=== PATIENT | male | born 1955 | race Caucasian/White ===

== ENCOUNTER 2018-01-21 11:59 | Observation (INO) | payer MEDICARE, OTHER ==
--- NOTE | 2018-01-21 12:42 | ED ---
General Adult HPI - General Chief complaint: Chest Pain Stated complaint: Chest Pain Time Seen by Provider: 01/21/18 12:02 Source: patient, RN notes reviewed, old records reviewed Mode of arrival: EMS Limitations: no limitations - History of Present Illness Initial comments: 62-year-old male with multiple medical problems presenting for chief complaint of chest pain. Patient states pain began yesterday evening. His been constant since that time. He does have history of coronary artery disease and has had stents in the past. Patient denies any radiating symptoms. Denies nausea or vomiting. He also complains of diffuse pain which is chronic. He smokes marijuana for his chronic pain. He is not on any oral pain medication at this time. No diaphoresis. Pain is been unchanged since its onset, dull central chest pain. - Related Data Home Medications Medication Instructions Recorded Confirmed Nitroglycerin Sl Tabs [Nitrostat] 0.4 mg SUBLINGUAL Q5M PRN 10/16/14 01/21/18 Lasix(Unknown Dose) 1 tab PO DAILY 01/21/18 01/21/18 Lisinopril [Zestril] 5 mg PO DAILY 01/21/18 01/21/18 Lovastatin [Mevacor] 40 mg PO BID 01/21/18 01/21/18 Metoprolol(Unknown Dose) 1 tab PO DAILY 01/21/18 01/21/18 Allergies Allergy/AdvReac Type Severity Reaction Status Date / Time haloperidol [From Haldol] Allergy Confusion Verified 01/21/18 13:09 ketorolac [From Toradol] Allergy Diarrhea Verified 01/21/18 13:09 naproxen [From Naprosyn] Allergy Anaphylaxis Verified 01/21/18 13:09 olanzapine [From Zyprexa] Allergy Confusion Verified 01/21/18 13:09 Review of Systems ROS Statement: Those systems with pertinent positive or pertinent negative responses have been documented in the HPI. ROS Other: All systems not noted in ROS Statement are negative. Past Medical History Past Medical History: Coronary Artery Disease (CAD), Chest Pain / Angina, COPD, GERD/Reflux, GI Bleed, Hyperlipidemia, Hypertension, Myocardial Infarction ([place]) , Osteoarthritis (OA), Pneumonia Additional Past Medical History / Comment(s): 11/17/14 Pt presented to [facility] ER on 11/16/14 with chest pain-rib tightness and nausea over 3 days. Pt had cardiac cath 3 weeks ago at [facility] but does not remember if they performed PTCA or stenting. Pt also fell and hit his head yesterday. Other HX:TBI, SUBARACHNOID HEMORRHAGE-eyes are light sensitive, [place]'s x 5, BACK hepPAIN, SPINAL STENOSIS, EMPHYSEMA, ddd, ulcers, lumbar radiculopathy, ARRYTHMIA-unsure what type, melena 01/2014 due to stomach ulcer, R hand fx. hep c Last Myocardial Infarction Date:: 2011? History of Any Multi-Drug Resistant Organisms: None Reported Past Surgical History: Back Surgery, Cholecystectomy, Heart Catheterization With Stent Additional Past Surgical History / Comment(s): EGD and colonoscopy, LAMINECTOMY , rt foot sx, Past Anesthesia/Blood Transfusion Reactions: No Reported Reaction Additional Past Anesthesia/Blood Transfusion Reaction / Comment(s): 11/17/14 Pt denies blood transfusion. Date of Last Stent Placement:: 2011? Past Psychological History: Anxiety, Depression Smoking Status: Current every day smoker Past Alcohol Use History: None Reported Past Drug Use History: Marijuana - Past Family History Mother Family Medical History: Hypertension Father Family Medical History: Coronary Artery Disease (CAD) General Exam Limitations: no limitations General appearance: alert, in no apparent distress Head exam: Present: atraumatic, normocephalic Eye exam: Present: normal appearance, PERRL ENT exam: Present: normal exam Neck exam: Present: normal inspection. Absent: meningismus Respiratory exam: Present: normal lung sounds bilaterally. Absent: respiratory distress, wheezes Cardiovascular Exam: Present: regular rate, normal rhythm GI/Abdominal exam: Present: soft. Absent: distended, tenderness, guarding Extremities exam: Present: normal inspection, normal capillary refill. Absent: pedal edema Neurological exam: Present: alert, oriented X3, CN II-XII intact. Absent: motor sensory deficit Psychiatric exam: Present: normal affect, normal mood Skin exam: Present: warm, dry, intact. Absent: cyanosis, diaphoretic Course Vital Signs 01/21/18 01/21/18 12:10 12:38 Temperature 97.8 F Pulse Rate 73 79 Respiratory 18 18 Rate Blood Pressure 109/66 118/67 O2 Sat by Pulse 98 96 Oximetry EKG Findings - EKG Comments: EKG Findings:: EKG: Normal sinus rhythm, left axis deviation, inferior infarct age undetermined, rate of 71, [place] interval 158, QRS duration 106, QTC [address] segment elevation or depression Medical Decision Making - Medical Decision Making 62-year-old male presenting with chest pain, patient does have history of CAD and previous stents. EKG is negative for any acute ST segment changes. Patient 's blood work reveals normal hemoglobin, normal white blood cell count, troponin is negative. Patient will be placed in observation for serial cardiac enzymes and cardiology consultation. Case discussed with Dr. Rojas who will accept admission - Lab Data Result diagrams: 01/21/18 12:30 01/21/18 12:30 Lab Results 01/21/18 01/21/18 01/21/18 Range/Units 12:30 12:30 12:30 WBC 4.6 (3.8-10.6) k/uL RBC 4.67 (4.30-5.90) m/uL Hgb 14.8 (13.0-17.5) gm/dL Hct 43.1 (39.0-53.0) % MCV 92.1 (80.0-100.0) fL MCH 31.7 (25.0-35.0) pg MCHC 34.4 (31.0-37.0) g/dL RDW 13.7 (11.5-15.5) % Plt Count 108 L (150-450) k/uL Neutrophils % 59 % Lymphocytes % 28 % Monocytes % 8 % Eosinophils % 4 % Basophils % 1 % Neutrophils # 2.7 (1.3-7.7) k/uL Lymphocytes # 1.3 (1.0-4.8) k/uL Monocytes # 0.4 (0-1.0) k/uL Eosinophils # 0.2 (0-0.7) k/uL Basophils # 0.0 (0-0.2) k/uL PT (9.0-12.0) sec INR (<1.2) APTT (22.0-30.0) sec Sodium 140 (137-145) mmol/L Potassium 3.4 L (3.5-5.1) mmol/L Chloride 109 H (98-107) mmol/L Carbon Dioxide 18 L (22-30) mmol/L Anion Gap 13 mmol/L BUN 13 (9-20) mg/dL Creatinine 0.90 (0.66-1.25) mg/dL Est GFR (CKD-EPI)AfAm >90 (>60 ml/min/1.73 sqM) Est GFR (CKD-EPI)NonAf >90 (>60 ml/min/1.73 sqM) Glucose 104 H (74-99) mg/dL Calcium 8.7 (8.4-10.2) mg/dL Magnesium 1.6 (1.6-2.3) mg/dL Total Bilirubin 0.7 (0.2-1.3) mg/dL AST 51 (17-59) U/L ALT 63 (21-72) U/L Alkaline Phosphatase 65 (38-126) U/L Total Creatine Kinase 96 (55-170) U/L CK-MB (CK-2) 1.1 (0.0-2.4) ng/mL CK-MB (CK-2) Rel Index 1.1 Troponin I <0.012 (0.000-0.034) ng/mL NT-Pro-B Natriuret Pep pg/mL Total Protein 6.5 (6.3-8.2) g/dL Albumin 3.7 (3.5-5.0) g/dL 01/21/18 01/21/18 Range/Units 12:30 12:30 WBC (3.8-10.6) k/uL RBC (4.30-5.90) m/uL Hgb (13.0-17.5) gm/dL Hct (39.0-53.0) % MCV (80.0-100.0) fL MCH (25.0-35.0) pg MCHC (31.0-37.0) g/dL RDW (11.5-15.5) % Plt Count (150-450) k/uL Neutrophils % % Lymphocytes % % Monocytes % % Eosinophils % % Basophils % % Neutrophils # (1.3-7.7) k/uL Lymphocytes # (1.0-4.8) k/uL Monocytes # (0-1.0) k/uL Eosinophils # (0-0.7) k/uL Basophils # (0-0.2) k/uL PT 12.4 H (9.0-12.0) sec INR 1.3 H (<1.2) APTT 25.2 (22.0-30.0) sec Sodium (137-145) mmol/L Potassium (3.5-5.1) mmol/L Chloride (98-107) mmol/L Carbon Dioxide (22-30) mmol/L Anion Gap mmol/L BUN (9-20) mg/dL Creatinine (0.66-1.25) mg/dL Est GFR (CKD-EPI)AfAm (>60 ml/min/1.73 sqM) Est GFR (CKD-EPI)NonAf (>60 ml/min/1.73 sqM) Glucose (74-99) mg/dL Calcium (8.4-10.2) mg/dL Magnesium (1.6-2.3) mg/dL Total Bilirubin (0.2-1.3) mg/dL AST (17-59) U/L ALT (21-72) U/L Alkaline Phosphatase (38-126) U/L Total Creatine Kinase (55-170) U/L CK-MB (CK-2) (0.0-2.4) ng/mL CK-MB (CK-2) Rel Index Troponin I (0.000-0.034) ng/mL NT-Pro-B Natriuret Pep 149 pg/mL Total Protein (6.3-8.2) g/dL Albumin (3.5-5.0) g/dL Disposition Clinical Impression: Chest pain Disposition: ADMITTED IP TO THIS HOSP Condition: Stable Is patient prescribed a controlled substance at d/c from ED?: No Referrals: Nemesio Hale DO [Primary Care Provider] - 1-2 days Decision to Admit Reason: Admit from EC Decision Date: 01/21/18 Decision Time: 14:19
[2018-01-21 12:47] LABS: Basophils % (A) 1 %; Eosinophils # (A) 0.2 k/uL (0-0.7); Eosinophils % (A) 4 %; HCT 43.1 % (39.0-53.0); HGB 14.8 gm/dL (13.0-17.5); Lymphocytes # (A) 1.3 k/uL (1.0-4.8); Lymphocytes % (A) 28 %; MCH 31.7 pg (25.0-35.0); MCHC 34.4 g/dL (31.0-37.0); MCV 92.1 fL (80.0-100.0); Mean Platelet Volume 7.3; Monocytes # (A) 0.4 k/uL (0-1.0); Monocytes % (A) 8 %; Neutrophils # (A) 2.7 k/uL (1.3-7.7); Neutrophils % (A) 59 %; Platelet Count 108 k/uL (150-450); RBC 4.67 m/uL (4.30-5.90); RDW 13.7 % (11.5-15.5); WBC 4.6 k/uL (3.8-10.6)
[2018-01-21 13:00] LABS: ALT 63 U/L (21-72); AST 51 U/L (17-59); Albumin 3.7 g/dL (3.5-5.0); Alkaline Phosphatase 65 U/L (38-126); Anion Gap 13 mmol/L; Blood Urea Nitrogen 13 mg/dL (9-20); Calcium 8.7 mg/dL (8.4-10.2); Carbon Dioxide 18 mmol/L (22-30); Chloride 109 mmol/L (98-107); Glucose 104 mg/dL (74-99); Magnesium 1.6 mg/dL (1.6-2.3); Potassium 3.4 mmol/L (3.5-5.1); Sodium 140 mmol/L (137-145); Total Bilirubin 0.7 mg/dL (0.2-1.3); Total Protein 6.5 g/dL (6.3-8.2)
[2018-01-21 13:01] LABS: INR 1.3 (<1.2); Partial Thromboplastin Time 25.2 sec (22.0-30.0); Prothrombin Time 12.4 sec (9.0-12.0)
--- NOTE | 2018-01-21 13:09 | XR ---
EXAMINATION TYPE: XR chest 2V DATE OF EXAM: 01/21/2018 COMPARISON: 11/16/2014 TECHNIQUE: PA and lateral views submitted. HISTORY: Chest pain FINDINGS: The lungs are clear and there is no pneumothorax, pleural effusion, or focal pneumonia. Hypertrophi c and degenerative change of the spine. Arthropathy of the shoulders. Hyperinflation suggests COPD. T here is a slight deformity of the posterior margin of the left second rib. IMPRESSION: 1. No acute process. Correlate for COPD. 2. Deformity of the left second rib. If there is a history of trauma consider rib series 4 evaluation of rib fracture.
[2018-01-21 13:11] LABS: Creatine Kinase 96 U/L (55-170)
[2018-01-21 13:24] LABS: Creatine Kinase MB 1.1 ng/mL (0.0-2.4); Troponin I <0.012 ng/mL (0.000-0.034)
[2018-01-21] MEDS ORDERED: MORPHINE SULFATE 2 MG/ML SYRINGE IVP STA (13:58)
[2018-01-21] MEDS ORDERED: ASPIRIN 325 MG TAB PO STA (13:58)
[2018-01-21] MEDS ORDERED: NALOXONE 0.4 MG/ML 1 ML VIAL IV PRN ×2 (14:10→14:11)
[2018-01-21] MEDS ORDERED: ONDANSETRON 4 MG/2 ML VIAL IVP PRN (14:11)
[2018-01-21] MEDS ORDERED: ACETAMINOPHEN TAB 325 MG TAB PO PRN (14:11)
[2018-01-21] MEDS ORDERED: HYDROcodone/APAP 5-325MG 1 EACH TAB PO PRN (14:42)
--- NOTE | 2018-01-21 14:44 | P.HPIM ---
History of Present Illness This is a pleasant 62 years old male with past medical history of hypertension, coronary artery disease, subarachnoid hemorrhage in 2013 as per patient, hepatitis C, cirrhosis, current smoker, COPD/emphysema and itching who presents because of chest pain of one-day duration, on the left side, radiating to the left lower chest, pressure-like, 7/10 in severity, associated with dyspnea, palpitation and some dizziness. No syncope area patient complains from exertional dyspnea he states he can walk for 75-80 feet before he needs to stop for rest. No change in urine or bowel habits, no fever In the ED his WBC is 4.6K, hemoglobin is 14.8, platelet is 108. INR is 1.3. Sodium 140, potassium 3.4, creatinine 0.9. Liver function test is unremarkable. First troponin is negative Chest x-ray shows no different acute process, COPD. Deformity of the second rib. EKG showing normal sinus rhythm at 71, old infarct. No significant ST-T changes Review of Systems CONSTITUTIONAL: No fever, no malaise, no fatigue. HEENT: No recent visual problems or hearing problems. Denied any sore throat. CARDIOVASCULAR: No orthopnea, PND, no palpitations, no syncope. PULMONARY: No shortness of breath, no cough, no hemoptysis. GASTROINTESTINAL: No diarrhea, no nausea, no vomiting, no abdominal pain. Normoactive bowel sounds. NEUROLOGICAL: No headaches, no weakness, no numbness. HEMATOLOGICAL: Denies any bleeding or petechiae. GENITOURINARY: Denies any burning micturition, frequency, or urgency. MUSCULOSKELETAL/RHEUMATOLOGICAL: Denies any joint pain, swelling, or any muscle pain. ENDOCRINE: Denies any polyuria or polydipsia. Past Medical History Past Medical History: Coronary Artery Disease (CAD), Chest Pain / Angina, COPD, GERD/Reflux, GI Bleed, Hyperlipidemia, Hypertension, Myocardial Infarction ([place]) , Osteoarthritis (OA), Pneumonia Additional Past Medical History / Comment(s): 11/17/14 Pt presented to [facility] ER on 11/16/14 with chest pain-rib tightness and nausea over 3 days. Pt had cardiac cath 3 weeks ago at [facility] but does not remember if they performed PTCA or stenting. Pt also fell and hit his head yesterday. Other HX:TBI, SUBARACHNOID HEMORRHAGE-eyes are light sensitive, [place]'s x 5, BACK hepPAIN, SPINAL STENOSIS, EMPHYSEMA, ddd, ulcers, lumbar radiculopathy, ARRYTHMIA-unsure what type, melena 01/2014 due to stomach ulcer, R hand fx. hep c Last Myocardial Infarction Date:: 2011? History of Any Multi-Drug Resistant Organisms: None Reported Past Surgical History: Back Surgery, Cholecystectomy, Heart Catheterization With Stent Additional Past Surgical History / Comment(s): EGD and colonoscopy, LAMINECTOMY , rt foot sx, Past Anesthesia/Blood Transfusion Reactions: No Reported Reaction Additional Past Anesthesia/Blood Transfusion Reaction / Comment(s): 11/17/14 Pt denies blood transfusion. Date of Last Stent Placement:: 2011? Past Psychological History: Anxiety, Depression Smoking Status: Current every day smoker Past Alcohol Use History: None Reported Past Drug Use History: Marijuana - Past Family History Mother Family Medical History: Hypertension Father Family Medical History: Coronary Artery Disease (CAD) Medications and Allergies Home Medications Medication Instructions Recorded Confirmed Type Nitroglycerin Sl Tabs [Nitrostat] 0.4 mg SUBLINGUAL Q5M PRN 10/16/14 01/21/18 History Lasix(Unknown Dose) 1 tab PO DAILY 01/21/18 01/21/18 History Lisinopril [Zestril] 5 mg PO DAILY 01/21/18 01/21/18 History Lovastatin [Mevacor] 40 mg PO BID 01/21/18 01/21/18 History Metoprolol(Unknown Dose) 1 tab PO DAILY 01/21/18 01/21/18 History Allergies Allergy/AdvReac Type Severity Reaction Status Date / Time haloperidol [From Haldol] Allergy Confusion Verified 01/21/18 13:09 ketorolac [From Toradol] Allergy Diarrhea Verified 01/21/18 13:09 naproxen [From Naprosyn] Allergy Anaphylaxis Verified 01/21/18 13:09 olanzapine [From Zyprexa] Allergy Confusion Verified 01/21/18 13:09 Physical Exam Vitals: Vital Signs Temp Pulse Resp BP Pulse Ox 01/21/18 12:38 79 18 118/67 96 01/21/18 12:10 97.8 F 73 18 109/66 98 Intake and Output 01/20/18 01/21/18 01/21/18 22:59 06:59 14:59 Other: Weight 63.503 kg GENERAL: The patient is alert and oriented x3, not in any acute distress. Well developed, well nourished. HEENT: Pupils are round and equally reacting to light. EOMI. No scleral icterus. No conjunctival pallor. Normocephalic, atraumatic. No pharyngeal erythema. No thyromegaly. CARDIOVASCULAR: S1 and S2 present. No murmurs, rubs, or gallops. PULMONARY: Chest is clear to auscultation, no wheezing or crackles. ABDOMEN: Soft, nontender, nondistended, normoactive bowel sounds. No palpable organomegaly. MUSCULOSKELETAL: No joint swelling or deformity. EXTREMITIES: No cyanosis, clubbing, or pedal edema. NEUROLOGICAL: Gross neurological examination did not reveal any focal deficits. SKIN: No rashes. Results CBC & Chem 7: 01/21/18 12:30 01/21/18 12:30 Labs: Abnormal Lab Results - Last 24 Hours (Table) 01/21/18 01/21/18 01/21/18 Range/Units 12:30 12:30 12:30 Plt Count 108 L (150-450) k/uL PT 12.4 H (9.0-12.0) sec INR 1.3 H (<1.2) Potassium 3.4 L (3.5-5.1) mmol/L Chloride 109 H (98-107) mmol/L Carbon Dioxide 18 L (22-30) mmol/L Glucose 104 H (74-99) mg/dL Assessment and Plan Plan: -Chest pain syndrome we'll admit with serial troponin, echo, telemetry, call cardiology consult -Current smoker. Patient is counseled for risks including but not limited to cancer, heart and brain strokes, and/or , patient verbalized understanding and he said he doesn't want to quit, he doesn't want nicotine patch minus overt. Patient states he will try to quit on his own if he likes to -Hypertension continue with the same treatment -Hyperlipidemia continue with the same treatment DVT prophylaxis on subcutaneous heparin GI prophylaxis on Pepcid
[2018-01-21] MEDS: MORPHINE SULFATE 2 MG/ML SYRINGE IV PRN (17:17)
[2018-01-21] MEDS ORDERED: Magnesium Replacement Protocol 1 EACH MISC MISCELLANE PRN (18:24)
[2018-01-21] MEDS ORDERED: Potassium Replacement Protocol 1 EACH MISC MISCELLANE PRN (18:24)
[2018-01-21 19:28] LABS: Creatine Kinase 123 U/L (55-170)
[2018-01-21 19:43] LABS: Creatine Kinase MB 1.5 ng/mL (0.0-2.4); Troponin I <0.012 ng/mL (0.000-0.034)
[2018-01-21 20:03] VITALS: RESP 16
[2018-01-21] MEDS ORDERED: ATORVASTATIN 20 MG TAB PO SCH (21:00)
[2018-01-21] MEDS ORDERED: FAMOTIDINE 20 MG/2 ML VIAL IV SCH (21:00)
[2018-01-21] MEDS ORDERED: HEPARIN SODIUM,PORCINE 5,000 UNIT/ML 1 ML VIAL SQ SCH (21:00)
[2018-01-21] MEDS: POTASSIUM CHLORIDE ER 20 MEQ TAB.ER PO SCH ×2 (22:09→23:26)
[2018-01-21] MEDS: MAGNESIUM SULFATE-D5W PMX 1 GM in DEXTROSE/WATER 1 100ML.BAG IVPB SCH ×2 (22:09→23:27)
[2018-01-22] MEDS: MORPHINE SULFATE 2 MG/ML SYRINGE IV PRN (00:43)
[2018-01-22 01:32] LABS: Creatine Kinase 118 U/L (55-170)
[2018-01-22 01:45] LABS: Creatine Kinase MB 1.7 ng/mL (0.0-2.4); Troponin I <0.012 ng/mL (0.000-0.034)
[2018-01-22 07:02] LABS: Basophils # (A) 0.1 k/uL (0-0.2); Basophils % (A) 1 %; Eosinophils # (A) 0.4 k/uL (0-0.7); Eosinophils % (A) 7 %; HCT 43.7 % (39.0-53.0); HGB 15.2 gm/dL (13.0-17.5); Lymphocytes # (A) 1.9 k/uL (1.0-4.8); Lymphocytes % (A) 37 %; MCH 32.5 pg (25.0-35.0); MCHC 34.8 g/dL (31.0-37.0); MCV 93.5 fL (80.0-100.0); Monocytes # (A) 0.4 k/uL (0-1.0); Monocytes % (A) 7 %; Neutrophils # (A) 2.5 k/uL (1.3-7.7); Neutrophils % (A) 47 %; Platelet Count 113 k/uL (150-450); RBC 4.67 m/uL (4.30-5.90); RDW 13.7 % (11.5-15.5); WBC 5.2 k/uL (3.8-10.6)
[2018-01-22 07:08] LABS: Calcium 8.7 mg/dL (8.4-10.2); Magnesium 2.1 mg/dL (1.6-2.3); Potassium 4.7 mmol/L (3.5-5.1)
[2018-01-22 07:51] VITALS: BP 87/55; PULSE 50; TEMP 97.6
--- NOTE | 2018-01-22 11:09 | P.PN ---
Subjective I came to see the patient, however the nurse at bedside told me patient has already signed leaving AMA and has already left Objective - Vital Signs Vital signs: Vital Signs Temp 97.6 F 01/22/18 07:50 Pulse 50 L 01/22/18 07:50 Resp 16 01/22/18 07:50 BP 87/55 01/22/18 07:50 Pulse Ox 98 01/22/18 07:50 Intake & Output 01/21/18 01/22/18 01/22/18 18:59 06:59 18:59 Intake Total 318 Balance 318 Weight 72.2 kg Intake: Oral 318 Other: Voiding Method Toilet Toilet Toilet # Voids 2 - Labs CBC & Chem 7: 01/22/18 06:34 01/22/18 06:34 Labs: Abnormal Lab Results - Last 24 Hours (Table) 01/21/18 01/21/18 01/21/18 Range/Units 12:30 12:30 12:30 Plt Count 108 L (150-450) k/uL PT 12.4 H (9.0-12.0) sec INR 1.3 H (<1.2) Potassium 3.4 L (3.5-5.1) mmol/L Chloride 109 H (98-107) mmol/L Carbon Dioxide 18 L (22-30) mmol/L Glucose 104 H (74-99) mg/dL 01/22/18 01/22/18 Range/Units 06:34 06:34 Plt Count 113 L (150-450) k/uL PT (9.0-12.0) sec INR (<1.2) Potassium (3.5-5.1) mmol/L Chloride 108 H (98-107) mmol/L Carbon Dioxide (22-30) mmol/L Glucose (74-99) mg/dL
--- NOTE | 2018-01-22 11:12 | P.DS ---
Providers Date of admission: 01/21/18 14:10 Attending physician: Tobi Rojas Consults: 01/21/18 14:10 Consult Physician Routine Consulting Provider: Dino Cheng Consult Reason/Comments: CP Do you want consulting provider notified?: Yes Primary care physician: Nemesio Hale [facility] Course: Patient is a pleasant 62 years old male with past medical history of hypertension, coronary artery disease, subarachnoid hemorrhage in 2013 as per patient, hepatitis C, cirrhosis, current smoker, COPD/emphysema and itching who presents because of chest pain of one-day duration, on the left side, radiating to the left lower chest, pressure-like, 7/10 in severity, associated with dyspnea, palpitation and some dizziness. No syncope area patient complains from exertional dyspnea he states he can walk for 75-80 feet before he needs to stop for rest. No change in urine or bowel habits, no fever In the ED his WBC is 4.6K, hemoglobin is 14.8, platelet is 108. INR is 1.3. Sodium 140, potassium 3.4, creatinine 0.9. Liver function test is unremarkable. First troponin is negative Patient was still in the middle of workup and evaluation including consult ends , however patient signed leaving AMA before the morning rounds Patient Condition at Discharge: Stable Plan - Discharge Summary Discharge Rx Participant: No New Discharge Prescriptions: No Action Nitroglycerin Sl Tabs [Nitrostat] 0.4 mg SUBLINGUAL Q5M PRN PRN Reason: Chest Pain Metoprolol(Unknown Dose) 1 tab PO DAILY Lovastatin [Mevacor] 40 mg PO BID Lisinopril [Zestril] 5 mg PO DAILY Lasix(Unknown Dose) 1 tab PO DAILY Discharge Medication List Nitroglycerin Sl Tabs [Nitrostat] 0.4 mg SUBLINGUAL Q5M PRN 10/16/14 [History] Lasix(Unknown Dose) 1 tab PO DAILY 01/21/18 [History] Lisinopril [Zestril] 5 mg PO DAILY 01/21/18 [History] Lovastatin [Mevacor] 40 mg PO BID 01/21/18 [History] Metoprolol(Unknown Dose) 1 tab PO DAILY 01/21/18 [History] Follow up Appointment(s)/Referral(s): Nemesio Hale DO [Primary Care Provider] - 1-2 days Discharge Disposition: HOME SELF-CARE
--- NOTE | 2018-01-22 11:30 | P.CRDCN ---
History of Present Illness History of present illness: Mr. Son is a pleasant 62-year-old male past medical history significant for coronary artery disease status post angioplasty of the circumflex and RCA, hypertension, dyslipidemia, chronic nicotine dependence and chronic marijuana use. He has since moved to [place] where he resided for the previous 3 years. 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 We have been asked to see him in consultation for complaints of chest pain. He complains of chest pain in the left precordial region that radiates around under his axilla. Described as a tight squeezing sensation with dizziness and shortness of breath. Blood pressure since admission has been marginally low. He is rather unclear of what medications he takes as far as the dosages are concerned. He denies associated nausea, vomiting, palpitations or diaphoresis. The pain does not radiate into his arm, back, neck or jaw. EKG on arrival reveals sinus mechanism with no acute ST or T-wave abnormalities evident old anterior and inferior infarct. Chest x-ray reveals COPD with the possibility of the left second rib fracture. Laboratory data reviewed, cardiac enzymes negative 3, hemoglobin 15.2, platelets 113, sodium 140, potassium 4.7, creatinine 1.03, magnesium 2.1. Most recent echocardiogram we have on file is from 2014 and reveals an ejection fraction of 50-55% with basal septal hypokinesia no evidence of valvular heart disease. Review of Systems At the time of my exam: CONSTITUTIONAL: Denies fever. Denies chills. EYES: Denies blurred vision. Denies vision changes. Denies eye pain. EARS, NOSE, MOUTH & THROAT: Denies headache. Denies sore throat. Denies ear pain. CARDIOVASCULAR: Denies chest pain. Denies shortness of breath. Denies orthopnea. Denies PND. Denies palpitations. RESPIRATORY: Denies cough. GASTROINTESTINAL: Denies abdominal pain. Denies diarrhea. Denies constipation. Denies nausea. Denies vomiting. MUSCULOSKELETAL: Denies myalgias. INTEGUMENTARY: Denies pruitis. Denies rash. NEUROLOGIC: Denies numbness. Denies tingling. Denies weakness. PSYCHIATRIC: Denies anxiety. Denies depression. ENDOCRINE: Denies fatigue. Denies weight change. Denies polydipsia. Denies polyurina. GENITOURINARY: Denies burning, hematuria or urgency with micturation. HEMATOLOGIC: Denies history of anemia. Denies bleeding. Past Medical History Past Medical History: Coronary Artery Disease (CAD), Chest Pain / Angina, COPD, GERD/Reflux, GI Bleed, Hyperlipidemia, Hypertension, Liver Disease, Myocardial Infarction (LA), Osteoarthritis (OA), Pneumonia, Rheumatoid Arthritis (RA) Additional Past Medical History / Comment(s): CHI, SUBARACHNOID HEMORRHAGE-eyes are light sensitive at times, LA's x 7 per pt, chronic pain, lumbar radiculopathy, DDD, scoliosis, spinal stenosis, gastric/douodenal ulcers, lower GI bleed, hepatitis C with unsuccessful treatment, malaria, IBS, bilateral hand/ fingers fractures, R index finger tip missing, hypoglycemia. Last Myocardial Infarction Date:: 2011? History of Any Multi-Drug Resistant Organisms: None Reported Past Surgical History: Back Surgery, Cholecystectomy, Heart Catheterization With Stent Additional Past Surgical History / Comment(s): PCI with stents (pt thinks he has 5 stents), PTCA in 2015, multiple back surgeries, EGD/colonoscopy. Past Anesthesia/Blood Transfusion Reactions: No Reported Reaction Additional Past Anesthesia/Blood Transfusion Reaction / Comment(s): 11/17/14 Pt denies blood transfusion. Date of Last Stent Placement:: 2011? Smoking Status: Current every day smoker - Past Family History Mother Family Medical History: Hypertension Father Family Medical History: Coronary Artery Disease (CAD) Medications and Allergies Home Medications Medication Instructions Recorded Confirmed Type Nitroglycerin Sl Tabs [Nitrostat] 0.4 mg SUBLINGUAL Q5M PRN 10/16/14 01/21/18 History Lasix(Unknown Dose) 1 tab PO DAILY 01/21/18 01/21/18 History Lisinopril [Zestril] 5 mg PO DAILY 01/21/18 01/21/18 History Lovastatin [Mevacor] 40 mg PO BID 01/21/18 01/21/18 History Metoprolol(Unknown Dose) 1 tab PO DAILY 01/21/18 01/21/18 History Allergies Allergy/AdvReac Type Severity Reaction Status Date / Time haloperidol [From Haldol] Allergy Confusion Verified 01/21/18 13:09 ketorolac [From Toradol] Allergy Diarrhea Verified 06/18/18 13:09 naproxen [From Naprosyn] Allergy Anaphylaxis Verified 01/21/18 13:09 olanzapine [From Zyprexa] Allergy Confusion Verified 01/21/18 13:09 Physical Exam Vitals: Vital Signs Temp Pulse Pulse Resp BP BP Pulse Ox 01/22/18 04:37 82/52 01/22/18 04:00 97.9 F 59 L 16 100 01/22/18 03:27 16 01/22/18 00:00 16 01/21/18 23:47 98.6 F 69 16 85/57 96 01/21/18 20:00 97.8 F 66 16 87/58 97 01/21/18 15:10 97.9 F 60 18 112/55 97 01/21/18 14:57 97.8 F 68 18 133/67 98 01/21/18 14:25 68 18 133/67 98 01/21/18 12:38 79 18 118/67 96 01/21/18 12:10 97.8 F 73 18 109/66 98 Intake and Output 01/21/18 01/22/18 01/22/18 22:59 06:59 14:59 Intake Total 318 Balance 318 Intake: Oral 318 Other: Voiding Method Toilet Toilet # Voids 2 Weight 72.2 kg Blood pressure 82/52 heart rate 59 afebrile maintaining oxygen saturation on room air GENERAL: This is a 62-year-old male in no apparent distress at the time of my examination. HEENT: Head is atraumatic, normocephalic. Pupils are equal, round. Sclerae anicteric. Conjunctivae are clear. Mucous membranes of the mouth are moist. Neck is supple. There is no jugular venous distention. No carotid bruit is heard. LUNGS: Coarse lung sounds throughout with faint expiratory wheezes noted. No rales. No chest wall tenderness is noted on palpation or with deep breathing. HEART: Regular rate and rhythm without murmurs, rubs or gallops. S1 and S2 heard. ABDOMEN: Soft, nontender. Bowel sounds are heard. No organomegaly noted. EXTREMITIES: No evidence of peripheral edema and no calf tenderness noted. VASCULAR: Radial and dorsalis pedis pulses palpated, no evidence of clubbing. NEUROLOGIC: Patient is awake, alert and oriented x3. Results 01/22/18 06:34 01/22/18 06:34 Cardiac Enzymes 01/21/18 01/21/18 01/21/18 Range/Units 12:30 12:30 18:27 AST 51 (17-59) U/L CK-MB (CK-2) 1.1 1.5 (0.0-2.4) ng/mL Troponin I <0.012 <0.012 (0.000-0.034) ng/mL 01/22/18 Range/Units 00:22 AST (17-59) U/L CK-MB (CK-2) 1.7 (0.0-2.4) ng/mL Troponin I <0.012 (0.000-0.034) ng/mL Coagulation 01/21/18 Range/Units 12:30 PT 12.4 H (9.0-12.0) sec APTT 25.2 (22.0-30.0) sec CBC 01/21/18 01/22/18 Range/Units 12:30 06:34 WBC 4.6 5.2 (3.8-10.6) k/uL RBC 4.67 4.67 (4.30-5.90) m/uL Hgb 14.8 15.2 (13.0-17.5) gm/dL Hct 43.1 43.7 (39.0-53.0) % Plt Count 108 L 113 L (150-450) k/uL Comprehensive Metabolic Panel 01/21/18 01/22/18 Range/Units 12:30 06:34 Sodium 140 140 (137-145) mmol/L Potassium 3.4 L 4.7 (3.5-5.1) mmol/L Chloride 109 H 108 H (98-107) mmol/L Carbon Dioxide 18 L 25 (22-30) mmol/L BUN 13 17 (9-20) mg/dL Creatinine 0.90 1.03 (0.66-1.25) mg/dL Glucose 104 H 79 (74-99) mg/dL Calcium 8.7 8.7 (8.4-10.2) mg/dL AST 51 (17-59) U/L ALT 63 (21-72) U/L Alkaline Phosphatase 65 (38-126) U/L Total Protein 6.5 (6.3-8.2) g/dL Albumin 3.7 (3.5-5.0) g/dL Current Medications Generic Name Dose Route Start Last Admin Trade Name Freq PRN Reason Stop Dose Admin Acetaminophen 650 mg 01/21/18 14:11 Tylenol Tab PO Q6HR PRN Mild Pain or Fever > 100.5 Hydrocodone Bitart/Acetaminophen 1 each 01/21/18 14:42 01/21/18 21:43 [place] 5-325 PO 1 each Q6H PRN Administration pain , moderate Atorvastatin Calcium 20 mg 01/21/18 21:00 01/21/18 22:09 Lipitor PO 20 mg DAILY CANDE Administration Famotidine 20 mg 01/21/18 21:00 01/21/18 21:43 Pepcid IV 20 mg Q12HR CANDE Administration Heparin Sodium (Porcine) 5,000 unit 01/21/18 21:00 01/21/18 21:43 Heparin SQ 5,000 unit Q12HR CANDE Administration Miscellaneous Information 1 each 01/21/18 18:24 Magnesium Per Protocol MISCELLANE DAILY PRN Per Protocol Protocol Miscellaneous Information 1 each 01/21/18 18:24 Potassium Per Protocol MISCELLANE DAILY PRN Per Protocol Protocol Morphine Sulfate 4 mg 01/21/18 14:11 01/22/18 00:43 Morphine Sulfate (Inj) IV 4 mg Q4HR PRN Administration Severe Pain Naloxone HCl 0.2 mg 01/21/18 14:11 Narcan IV Q2M PRN Opioid Reversal Ondansetron HCl 4 mg 01/21/18 14:11 Zofran IVP Q8HR PRN Nausea And Vomiting Intake and Output 01/21/18 01/22/18 01/22/18 22:59 06:59 14:59 Intake Total 318 Balance 318 Intake: Oral 318 Other: Voiding Method Toilet Toilet # Voids 2 Weight 72.2 kg 01/22/18 06:34 01/22/18 06:34 Assessment and Plan Assessment: ASSESSMENT 1. Chest pain, atypical. An acute coronary event has been ruled out. 2. History of coronary artery disease with angioplasty in 2011 3. Hypertension, currently hypotensive 4. Dyslipidemia 5. Chronic nicotine dependence 6. Chronic marijuana use PLAN A 2-D echocardiogram and Doppler study to assess cardiac structure and function. Obtain records from recent stress test in [place] for review. Decrease lisinopril to 2.5 mg daily. Decrease metoprolol to 12.5 mg twice a day. Hold Lasix until echo has been obtained. Further recommendations to follow based upon clinical course. Thank you kindly for this consultation. Nurse Practitioner note has been reviewed, I agree with a documented findings and plan of care. Patient was seen and examined.
--- NOTE | 2018-01-22 13:37 | ECHOF ---
Referral Reason:cp MEASUREMENTS -------- HEIGHT: 182.9 cm WEIGHT: 72.1 kg BP: 87/55 RVIDd: 3.0 cm (< 3.3) IVSd: 1.1 cm (0.6 - 1.1) LVIDd: 3.7 cm (3.9 - 5.3) LVPWd: 1.3 cm (0.6 - 1.1) IVSs: 1.4 cm LVIDs: 2.9 cm LVPWs: 1.4 cm LA Diam: 2.8 cm (2.7 - 3.8) Ao Diam: 3.4 cm (2.0 - 3.7) AV Cusp: 1.7 cm (1.5 - 2.6) LA Diam: 2.9 cm (2.7 - 3.8) MV EXCURSION: 14.230 mm (> 18.000) MV EF SLOPE: 84 mm/s (70 - 150) EPSS: 0.8 cm MV E Jasen: 0.72 m/s MV DecT: 266 ms MV A Jasen: 0.67 m/s MV E/A Ratio: 1.08 RAP: 5.00 mmHg RVSP: 14.20 mmHg FINDINGS -------- Sinus rhythm. This was a techncally difficult study with suboptimal views, , Lumason utilized for enhancement of im ages. The left ventricular size is normal. Left ventricular wall thickness is normal. Overall left vent ricular systolic function is low-normal with, an EF between 50 - 55 %. Basal inferior LV wall motio n is hypokinetic. Basal anteroseptal LV wall motion is hypokinetic. Septal Hypokinesis The right ventricle is normal in size. The left atrial size is normal. The right atrial size is normal. 5.0mg OF Lumason UTLIZED: 2 OR MORE WALL SEGMENTS NOT VISUALIZED. The aortic valve is trileaflet, and appears structurally normal. No aortic stenosis or regurgitation. Mild mitral annular calcification present. Mild mitral regurgitation is present. Mild tricuspid regurgitation present. There is no evidence of pulmonary hypertension. The right v entricular systolic pressure, as measured by Doppler, is 14.20mmHg. There is no pulmonic regurgitation present. There is no pericardial effusion. CONCLUSIONS -------- 1. This was a techncally difficult study with suboptimal views, , Lumason utilized for enhancement of images. 2. The left ventricular size is normal. 3. Left ventricular wall thickness is normal. 4. Overall left ventricular systolic function is low-normal with, an EF between 50 - 55 %. 5. Septal Hypokinesis 6. The right ventricle is normal in size. 7. The left atrial size is normal. 8. The right atrial size is normal. 9. 5.0mg OF Lumason UTLIZED: 2 OR MORE WALL SEGMENTS NOT VISUALIZED. 10. The aortic valve is trileaflet, and appears structurally normal. No aortic stenosis or regurgitat ion. 11. Mild mitral annular calcification present. 12. Mild mitral regurgitation is present. 13. Mild tricuspid regurgitation present. 14. There is no evidence of pulmonary hypertension. 15. The right ventricular systolic pressure, as measured by Doppler, is 14.20mmHg. 16. There is no pulmonic regurgitation present. 17. There is no pericardial effusion. CARTON LINER: Digna Renteria RDCS
== END 2018-01-22 10:38 | disposition home or self-care (01) ==
LOC: EC 11:59 → 3OBS 14:10
PROVIDERS: ADMIT Internal Medicine; ATTEND Internal Medicine
DX: R07.89 Other chest pain (principal); R06.00 Dyspnea, unspecified; R00.2 Palpitations; R42 Dizziness and giddiness; R07.1 Chest pain on breathing; R07.2 Precordial pain; R06.02 Shortness of breath; I10 Essential (primary) hypertension; I25.10 Atherosclerotic heart disease of native coronary artery without angina pectoris; J44.9 Chronic obstructive pulmonary disease, unspecified; K74.60 Unspecified cirrhosis of liver; K21.9 Gastro-esophageal reflux disease without esophagitis; I25.2 Old myocardial infarction; M19.90 Unspecified osteoarthritis, unspecified site; E78.5 Hyperlipidemia, unspecified; M48.00 Spinal stenosis, site unspecified; M54.16 Radiculopathy, lumbar region; F41.9 Anxiety disorder, unspecified; F32.9 Major depressive disorder, single episode, unspecified; M06.9 Rheumatoid arthritis, unspecified; G89.29 Other chronic pain; E16.2 Hypoglycemia, unspecified; I95.9 Hypotension, unspecified; K58.9 Irritable bowel syndrome, unspecified; F17.200 Nicotine dependence, unspecified, uncomplicated; F12.90 Cannabis use, unspecified, uncomplicated; Z79.899 Other long term (current) drug therapy; Z90.49 Acquired absence of other specified parts of digestive tract; Z88.8 Allergy status to other drugs, medicaments and biological substances; Z87.19 Personal history of other diseases of the digestive system; Z87.01 Personal history of pneumonia (recurrent); Z86.19 Personal history of other infectious and parasitic diseases; Z95.5 Presence of coronary angioplasty implant and graft; Z87.11 Personal history of peptic ulcer disease; Z53.21 Procedure and treatment not carried out due to patient leaving prior to being seen by health care provider
CPT/HCPCS: 99285; 96375 ×3; 96365; 96366; 96372; 96376 ×2; 36415; 93005; 83880; 80053; 80048; 82550 ×2; 82553 ×2; 83735 ×2; 84484 ×2; 85025 ×2; 85610; 85730; 71046; G0378 ×2; C8929; J1644; J2270 ×2; J3475; Q9950; 93306

== ENCOUNTER 2018-02-19 16:52 | Observation (INO) | payer MEDICARE ==
[2018-02-19] MEDS ORDERED: NITROGLYCERIN OINT 1 INCH/GM PACKET TOPICAL STA (18:26)
[2018-02-19] MEDS ORDERED: ASPIRIN 81 MG PO STA (18:26)
--- NOTE | 2018-02-19 18:29 | ED ---
General Adult HPI - General Chief complaint: Chest Pain Stated complaint: Chest pain Time Seen by Provider: 02/19/18 18:19 Source: patient, RN notes reviewed Mode of arrival: ambulatory Limitations: no limitations - History of Present Illness Initial comments: Patient is a pleasant 62-year-old male presenting to the emergency Department with complaints of chest discomfort. Patient states he has chronic similar chest discomfort daily. Patient states that is been worse recently. Patient went to some clinic prior to arrival and was advised to come to the emergency department. Patient does have associated dyspnea and nausea and sweating which are all chronic. Patient states he has been taking his regular medication. Patient states he also tried taking nitroglycerin. Patient states nothing helps ever for his chest discomfort. - Related Data Home Medications Medication Instructions Recorded Confirmed Lisinopril [Zestril] 5 mg PO DAILY 01/21/18 02/19/18 Aspirin EC [Ecotrin] 325 mg PO DAILY 02/19/18 02/19/18 Furosemide [Lasix] 20 mg PO DAILY 02/19/18 02/19/18 Lovastatin [Mevacor] 80 mg PO HS 02/19/18 02/19/18 Magnesium(Unknown Dose) 1 tab PO DAILY 02/19/18 02/19/18 Metoprolol Tartrate [Lopressor] 25 mg PO DAILY 02/19/18 02/19/18 Multivitamins, Thera [Multivitamin 1 tab PO DAILY 02/19/18 02/19/18 (formulary)] Potassium 99 mg PO DAILY 02/19/18 02/19/18 Allergies Allergy/AdvReac Type Severity Reaction Status Date / Time haloperidol [From Haldol] Allergy Confusion Verified 02/19/18 18:41 ketorolac [From Toradol] Allergy Diarrhea Verified 02/19/18 18:41 naproxen [From Naprosyn] Allergy Anaphylaxis Verified 02/19/18 18:41 olanzapine [From Zyprexa] Allergy Confusion Verified 02/19/18 18:41 Review of Systems ROS Statement: Those systems with pertinent positive or pertinent negative responses have been documented in the HPI. ROS Other: All systems not noted in ROS Statement are negative. Constitutional: Denies: fever Eyes: Denies: eye pain ENT: Denies: ear pain Respiratory: Reports: dyspnea Cardiovascular: Reports: chest pain Endocrine: Denies: fatigue Gastrointestinal: Denies: abdominal pain Genitourinary: Denies: dysuria Musculoskeletal: Denies: back pain Skin: Denies: rash Neurological: Denies: weakness Past Medical History Past Medical History: Coronary Artery Disease (CAD), Chest Pain / Angina, COPD, GERD/Reflux, GI Bleed, Hyperlipidemia, Hypertension, Liver Disease, Myocardial Infarction (PA), Osteoarthritis (OA), Pneumonia, Rheumatoid Arthritis (RA) Additional Past Medical History / Comment(s): CHI, SUBARACHNOID HEMORRHAGE-eyes are light sensitive at times, PA's x 7 per pt, chronic pain, lumbar radiculopathy, DDD, scoliosis, spinal stenosis, gastric/douodenal ulcers, lower GI bleed, hepatitis C with unsuccessful treatment, malaria, IBS, bilateral hand/ fingers fractures, R index finger tip missing, hypoglycemia. Last Myocardial Infarction Date:: 2011? History of Any Multi-Drug Resistant Organisms: None Reported Past Surgical History: Back Surgery, Cholecystectomy, Heart Catheterization With Stent Additional Past Surgical History / Comment(s): PCI with stents (pt thinks he has 5 stents), PTCA in 2015, multiple back surgeries, EGD/colonoscopy. Past Anesthesia/Blood Transfusion Reactions: No Reported Reaction Additional Past Anesthesia/Blood Transfusion Reaction / Comment(s): 11/17/14 Pt denies blood transfusion. Date of Last Stent Placement:: 2011? Past Psychological History: Anxiety, Depression Smoking Status: Current every day smoker - Past Family History Mother Family Medical History: Hypertension Father Family Medical History: Coronary Artery Disease (CAD) General Exam Limitations: no limitations General appearance: alert, in no apparent distress Head exam: Present: atraumatic Eye exam: Present: normal appearance, PERRL ENT exam: Present: normal oropharynx Neck exam: Present: normal inspection Respiratory exam: Present: normal lung sounds bilaterally Cardiovascular Exam: Present: regular rate, normal rhythm Expanded Peripheral pulses: 2+: Radial (R), Radial (L), Dorsalis Pedis (R), Dorsalis Pedis (L) GI/Abdominal exam: Present: soft. Absent: tenderness Extremities exam: Present: normal inspection. Absent: pedal edema, calf tenderness Neurological exam: Present: alert Psychiatric exam: Present: normal affect, normal mood Skin exam: Present: normal color Course Vital Signs 02/19/18 02/19/18 02/19/18 16:57 18:45 19:10 Temperature 98.7 F 98.3 F Pulse Rate 75 60 61 Respiratory 16 19 18 Rate Blood Pressure 115/74 163/80 139/86 O2 Sat by Pulse 98 99 100 Oximetry 02/19/18 02/19/18 20:00 20:50 Temperature Pulse Rate 62 63 Respiratory 18 18 Rate Blood Pressure 163/83 147/98 O2 Sat by Pulse 99 98 Oximetry EKG Findings - EKG Comments: EKG Findings:: Normal sinus rhythm 66. ME 168. QRS 104. QT 426. QTc 446. Left axis. Inferior Q waves with T wave inversion. Borderline lateral Q waves. Medical Decision Making - Medical Decision Making Patient reevaluated and resting comfortably in bed. Patient complains of continued discomfort. Patient states he cannot take Tylenol or NSAIDs secondary to his chronic liver and abdominal problems. Patient requests narcotic medication. Patient states nitroglycerin makes his symptoms worse. Case was discussed in detail with Dr. Rojas, who will admit for hospital call. - Lab Data Result diagrams: 02/19/18 18:48 02/19/18 18:48 Lab Results 02/19/18 02/19/18 02/19/18 Range/Units 18:48 18:48 18:48 WBC 5.9 (3.8-10.6) k/uL RBC 4.96 (4.30-5.90) m/uL Hgb 16.1 (13.0-17.5) gm/dL Hct 47.1 (39.0-53.0) % MCV 94.9 (80.0-100.0) fL MCH 32.4 (25.0-35.0) pg MCHC 34.1 (31.0-37.0) g/dL RDW 13.9 (11.5-15.5) % Plt Count 95 L (150-450) k/uL Neutrophils % 68 % Lymphocytes % 24 % Monocytes % 5 % Eosinophils % 2 % Basophils % 1 % Neutrophils # 4.0 (1.3-7.7) k/uL Lymphocytes # 1.4 (1.0-4.8) k/uL Monocytes # 0.3 (0-1.0) k/uL Eosinophils # 0.1 (0-0.7) k/uL Basophils # 0.0 (0-0.2) k/uL Manual Slide Review Performed Poikilocytosis (manual Present PT (9.0-12.0) sec INR (<1.2) APTT (22.0-30.0) sec Sodium 141 (137-145) mmol/L Potassium 3.9 (3.5-5.1) mmol/L Chloride 110 H (98-107) mmol/L Carbon Dioxide 22 (22-30) mmol/L Anion Gap 9 mmol/L BUN 13 (9-20) mg/dL Creatinine 0.80 (0.66-1.25) mg/dL Est GFR (CKD-EPI)AfAm >90 (>60 ml/min/1.73 sqM) Est GFR (CKD-EPI)NonAf >90 (>60 ml/min/1.73 sqM) Glucose 87 (74-99) mg/dL Calcium 9.3 (8.4-10.2) mg/dL Magnesium 1.7 (1.6-2.3) mg/dL Total Bilirubin 1.0 (0.2-1.3) mg/dL AST 27 (17-59) U/L ALT 26 (21-72) U/L Alkaline Phosphatase 73 (38-126) U/L Total Creatine Kinase 64 (55-170) U/L CK-MB (CK-2) 0.8 (0.0-2.4) ng/mL CK-MB (CK-2) Rel Index 1.3 Troponin I <0.012 (0.000-0.034) ng/mL Total Protein 7.8 (6.3-8.2) g/dL Albumin 4.5 (3.5-5.0) g/dL 02/19/18 Range/Units 18:48 WBC (3.8-10.6) k/uL RBC (4.30-5.90) m/uL Hgb (13.0-17.5) gm/dL Hct (39.0-53.0) % MCV (80.0-100.0) fL MCH (25.0-35.0) pg MCHC (31.0-37.0) g/dL RDW (11.5-15.5) % Plt Count (150-450) k/uL Neutrophils % % Lymphocytes % % Monocytes % % Eosinophils % % Basophils % % Neutrophils # (1.3-7.7) k/uL Lymphocytes # (1.0-4.8) k/uL Monocytes # (0-1.0) k/uL Eosinophils # (0-0.7) k/uL Basophils # (0-0.2) k/uL Manual Slide Review Poikilocytosis (manual PT 11.9 (9.0-12.0) sec INR 1.2 H (<1.2) APTT 23.3 (22.0-30.0) sec Sodium (137-145) mmol/L Potassium (3.5-5.1) mmol/L Chloride (98-107) mmol/L Carbon Dioxide (22-30) mmol/L Anion Gap mmol/L BUN (9-20) mg/dL Creatinine (0.66-1.25) mg/dL Est GFR (CKD-EPI)AfAm (>60 ml/min/1.73 sqM) Est GFR (CKD-EPI)NonAf (>60 ml/min/1.73 sqM) Glucose (74-99) mg/dL Calcium (8.4-10.2) mg/dL Magnesium (1.6-2.3) mg/dL Total Bilirubin (0.2-1.3) mg/dL AST (17-59) U/L ALT (21-72) U/L Alkaline Phosphatase (38-126) U/L Total Creatine Kinase (55-170) U/L CK-MB (CK-2) (0.0-2.4) ng/mL CK-MB (CK-2) Rel Index Troponin I (0.000-0.034) ng/mL Total Protein (6.3-8.2) g/dL Albumin (3.5-5.0) g/dL - Radiology Data Radiology results: image reviewed (Chest x-ray shows no acute process) Disposition Clinical Impression: Chest pain Disposition: ADMITTED IP TO THIS [facility] Is patient prescribed a controlled substance at d/c from ED?: No Referrals: None,Stated [Primary Care Provider] - 1-2 days Decision Time: 21:19
[2018-02-19 19:06] LABS: Basophils % (A) 1 %; Eosinophils # (A) 0.1 k/uL (0-0.7); Eosinophils % (A) 2 %; HCT 47.1 % (39.0-53.0); HGB 16.1 gm/dL (13.0-17.5); Lymphocytes # (A) 1.4 k/uL (1.0-4.8); Lymphocytes % (A) 24 %; MCH 32.4 pg (25.0-35.0); MCHC 34.1 g/dL (31.0-37.0); MCV 94.9 fL (80.0-100.0); Mean Platelet Volume 7.2; Monocytes # (A) 0.3 k/uL (0-1.0); Monocytes % (A) 5 %; Neutrophils % (A) 68 %; RBC 4.96 m/uL (4.30-5.90); RDW 13.9 % (11.5-15.5); WBC 5.9 k/uL (3.8-10.6)
[2018-02-19 19:15] LABS: INR 1.2 (<1.2); Partial Thromboplastin Time 23.3 sec (22.0-30.0); Prothrombin Time 11.9 sec (9.0-12.0)
[2018-02-19 19:19] LABS: ALT 26 U/L (21-72); AST 27 U/L (17-59); Albumin 4.5 g/dL (3.5-5.0); Alkaline Phosphatase 73 U/L (38-126); Anion Gap 9 mmol/L; Blood Urea Nitrogen 13 mg/dL (9-20); Calcium 9.3 mg/dL (8.4-10.2); Carbon Dioxide 22 mmol/L (22-30); Chloride 110 mmol/L (98-107); Glucose 87 mg/dL (74-99); Magnesium 1.7 mg/dL (1.6-2.3); Potassium 3.9 mmol/L (3.5-5.1); Sodium 141 mmol/L (137-145); Total Protein 7.8 g/dL (6.3-8.2)
[2018-02-19 19:20] LABS: Creatine Kinase 64 U/L (55-170)
--- NOTE | 2018-02-19 19:26 | XR ---
EXAMINATION TYPE: XR chest 2V DATE OF EXAM: 02/19/2018 COMPARISON: NONE HISTORY: Chest pain TECHNIQUE: Frontal and lateral views of the chest are obtained. FINDINGS: Heart and mediastinum are normal. Lungs are clear of consolidation. There is no pleural ef fusion. Bony thorax is intact. IMPRESSION: Normal chest
[2018-02-19 19:32] LABS: Creatine Kinase MB 0.8 ng/mL (0.0-2.4); Troponin I <0.012 ng/mL (0.000-0.034)
[2018-02-19 20:29] LABS: Platelet Count 95 k/uL (150-450); Poikilocytosis (M) Present
[2018-02-19] MEDS ORDERED: MORPHINE SULFATE 2 MG/ML SYRINGE IVP STA (21:19)
[2018-02-19] MEDS ORDERED: NITROGLYCERIN SL TABS 0.4 MG TAB SUBLINGUAL PRN (21:20)
[2018-02-19 22:20] VITALS: RESP 16
[2018-02-19 22:37] VITALS: BMI 22.1
[2018-02-19] MEDS ORDERED: MORPHINE SULFATE 4 MG/ML SYRINGE IVP PRN (23:00)
[2018-02-19] MEDS: NITROGLYCERIN OINT 1 INCH/GM PACKET TOPICAL SCH (23:02)
[2018-02-20 01:38] LABS: Creatine Kinase 44 U/L (55-170)
[2018-02-20] MEDS ORDERED: MORPHINE SULFATE 4 MG/ML SYRINGE ONE (01:50)
[2018-02-20 01:51] LABS: Creatine Kinase MB 0.6 ng/mL (0.0-2.4); Troponin I <0.012 ng/mL (0.000-0.034)
[2018-02-20 05:55] LABS: Cholesterol 149 mg/dL (<200); HDL Cholesterol 61 mg/dL (40-60); LDL Cholesterol,Calculated 79 mg/dL (0-99); Triglycerides 45 mg/dL (<150)
[2018-02-20] MEDS: NITROGLYCERIN OINT 1 INCH/GM PACKET TOPICAL SCH (06:29)
--- NOTE | 2018-02-20 08:18 | CONS ---
CONSULTATION This is a 62-year-old male patient who comes to the hospital with multiple complaints as I asked him what his problems were he stated that he had liver problems, eye problems and all kinds of problems, more than I could fathom. Once he started focusing on his symptoms, he said he had constant chest pain for a long time, could not describe the location said it was all over and said he was having chest pain currently, but looked extremely comfortable and had headphones on was listening to the television without any respiratory distress or without any physical/facial signs of pain/discomfort. He stated he was dizzy, lightheaded, blurring of vision, liver problems, abdominal problems and all kinds of problems. He stated he does not have a primary orthotic/prosthetic clinician/PCP. MEDICATIONS: Apparently his medications at home include lisinopril, aspirin, Lasix, lovastatin, magnesium, metoprolol and potassium. I am not sure how he gets these medications if he does not see a physician. ALLERGIES: Allergies to HALDOL, TORADOL, NAPROSYN, ZYPREXA. REVIEW OF SYSTEMS: No fever, chills, or rigors. No cough or expectoration. No nausea, vomiting or diarrhea. No hematuria. PAST MEDICAL HISTORY: Past medical history of liver problems with hepatitis C unsuccessful treatment. Apparently, he has had a cardiac catheterization with coronary stenting in the past in 2016. PHYSICAL EXAMINATION: On examination, he is afebrile. His pulse rate was in the 60s. Blood pressure 139/86 mmHg. Head and neck examination is normal. No JVD, thyromegaly or carotid bruits. Heart sounds S1, S2 normal. No murmurs or gallops or rub. Abdomen is soft, nontender. Extremities are warm. No edema. He looks extremely comfortable. He has no respiratory distress and did not appear to be in pain, although he stated that he was in a lot of pain all over his chest. LABS: His labs were reviewed. Hemoglobin 16. Sodium 141, potassium 3.9, chloride 110 , creatinine 0.8. AST 27, ALT 26. Two cardiac enzymes are normal. LDL 79, HDL 61. EKG was reviewed and shows sinus rhythm with Q-waves in the inferior leads with T- wave inversions. IMPRESSION: Atypical chest discomfort with dizziness. No arrhythmias noted. Normal cardiac enzymes. This appears to be atypical chest discomfort and can be worked up as an outpatient. He has multiple other problems, medical problems, that may need to be addressed either as an inpatient or as an outpatient. From a cardiac standpoint, outpatient workup may be considered for evaluation of chest pain all over his chest. Further management per attending physician. Thank you for the consult. LILIANA / MARIBEL: [id number] / DAGOBERTO
[2018-02-20 08:20] LABS: Creatine Kinase 44 U/L (55-170)
[2018-02-20 08:32] LABS: Creatine Kinase MB 0.6 ng/mL (0.0-2.4); Troponin I <0.012 ng/mL (0.000-0.034)
[2018-02-20] MEDS ORDERED: ASPIRIN 325 MG TAB PO SCH ×2 (09:00→09:45)
[2018-02-20 09:40] VITALS: BP 128/75; PULSE 62; TEMP 97.8
[2018-02-20] MEDS ORDERED: MAGNESIUM OXIDE 400 MG TAB PO SCH (09:45)
[2018-02-20] MEDS ORDERED: MULTIVITAMINS, THERA 1 EACH TAB PO SCH (09:45)
[2018-02-20] MEDS ORDERED: METOPROLOL TARTRATE 25 MG TAB PO SCH (09:45)
[2018-02-20] MEDS ORDERED: POTASSIUM 99MG PO SCH (09:45)
--- NOTE | 2018-02-20 12:28 | P.HPIM ---
History of Present Illness Patient is a 62-year-old the male came to ER with multiple complaints. Patient was comparing of chest pain was evaluated by cardiology rule out acute coronary syndromes. Patient came with similar complaints for couple weeks ago at the time extensive evaluation was done echocardiac exam was done all of which are negative patient was subsequent is sent home. Patient has multiple other complaints including that he feels like he has cirrhosis he is weak he short of breath unable to cannulate. We're able to ambulate him in the hallway vitals are stable patient is not hypoxemic all his symptoms are subject to there is no objective evidence of any pathology. Patient was belligerent to the staff last night, patient was threatening his roommate as well who is scale and was sitting in the hallway because of him. Patient is requesting opiates doesn't want nitroglycerin for chest pain, I believe patient has opiate seeking behavior and abusing the medical system. Patient says he lost weight doesn't have a PCP. I spent extensive amount of time discussing regarding his medical problems. Patient will need a primary care physician nothing much ELSE can be offered in the hospital acutely here. Patient although if lost weight need to be evaluated with a regular cancer screening procedures which can be done as an outpatient. I do not believe patient has COPD patient states he smokes 2 cigarettes per day was prescribed by the physician for irritable bowel syndrome. Although there is no prescription tobacco product recommendations and medicine. Patient is well-known to our service used to live in the town 3- 4 years ago then moved to [place]. Patient later became became belligerent and just wanted to talk to his and wanted to Speech Language Assistant and alice the hospital. Review of Systems Multiple nonspecific symptoms which cannot be explained by any pathology. Past Medical History Past Medical History: Coronary Artery Disease (CAD), Chest Pain / Angina, COPD, GERD/Reflux, GI Bleed, Hyperlipidemia, Hypertension, Liver Disease, Myocardial Infarction ([place]), Osteoarthritis (OA), Pneumonia, Rheumatoid Arthritis (RA) Additional Past Medical History / Comment(s): CHI, SUBARACHNOID HEMORRHAGE-eyes are light sensitive at times, [place]'s x 7 per pt, chronic pain, lumbar radiculopathy, DDD, scoliosis, spinal stenosis, gastric/douodenal ulcers, lower GI bleed, hepatitis C with unsuccessful treatment, malaria, IBS, bilateral hand/ fingers fractures, R index finger tip missing, hypoglycemia. Last Myocardial Infarction Date:: 2011? History of Any Multi-Drug Resistant Organisms: None Reported Past Surgical History: Back Surgery, Cholecystectomy, Heart Catheterization With Stent Additional Past Surgical History / Comment(s): PCI with stents (pt thinks he has 5 stents), PTCA in 2016, multiple back surgeries, EGD/colonoscopy. Past Anesthesia/Blood Transfusion Reactions: No Reported Reaction Additional Past Anesthesia/Blood Transfusion Reaction / Comment(s): 11/17/14 Pt denies blood transfusion. Date of Last Stent Placement:: 2011? Past Psychological History: Anxiety, Depression Additional Psychological History / Comment(s): Pt lives with his spouse. He has used a walker or cane in the past but no longer due to their aggravating neck pain. He states some days he just cannot walk. His spouse helps him sometimes with his ADLs but she also has health issues. He drives a car. 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 He is a [place] . Smoking Status: Current every day smoker Past Alcohol Use History: None Reported Additional Past Alcohol Use History / Comment(s): Pt states he started smoking at age 10 yrs. He quit in the past after MIs but resumed smoking after his first 's . He is currently smoking 5 cigs a day. Past Drug Use History: Marijuana Additional Drug Use History / Comment(s): Pt states he occasionally smokes marijuana. He has not done any other street drugs since 1959. - Past Family History Mother Family Medical History: Hypertension Father Family Medical History: Coronary Artery Disease (CAD) Medications and Allergies Home Medications Medication Instructions Recorded Confirmed Type Aspirin EC [Ecotrin] 325 mg PO DAILY 02/19/18 02/19/18 History Lovastatin [Mevacor] 80 mg PO HS 02/19/18 02/19/18 History Magnesium(Unknown Dose) 1 tab PO DAILY 02/19/18 02/19/18 History Metoprolol Tartrate [Lopressor] 25 mg PO DAILY 02/19/18 02/19/18 History Multivitamins, Thera [Multivitamin 1 tab PO DAILY 02/19/18 02/19/18 History (formulary)] Potassium 99 mg PO DAILY 02/19/18 02/19/18 History Allergies Allergy/AdvReac Type Severity Reaction Status Date / Time haloperidol [From Haldol] Allergy Confusion Verified 02/19/18 22:38 ketorolac [From Toradol] Allergy Diarrhea Verified 02/19/18 22:38 naproxen [From Naprosyn] Allergy Anaphylaxis Verified 02/19/18 22:38 olanzapine [From Zyprexa] Allergy Confusion Verified 02/19/18 22:38 Physical Exam Vitals: Vital Signs Temp Pulse Pulse Resp BP BP Pulse Ox 02/20/18 08:00 97.8 F 62 16 128/75 97 02/20/18 04:00 98.0 F 58 L 16 101/58 98 02/20/18 00:00 72 16 02/19/18 22:43 60 16 02/19/18 22:19 97.9 F 57 L 16 121/80 94 L 02/19/18 21:29 98.3 F 66 18 137/77 97 02/19/18 20:50 63 18 147/98 98 02/19/18 20:00 62 18 163/83 99 02/19/18 19:10 98.3 F 61 18 139/86 100 02/19/18 18:45 60 19 163/80 99 02/19/18 16:57 98.7 F 75 16 115/74 98 Intake and Output 02/19/18 02/20/18 02/20/18 22:59 06:59 14:59 Intake Total 150 0 Balance 150 0 Intake: Oral 150 0 Other: Voiding Method Toilet Toilet Toilet Urinal Urinal Urinal # Voids 1 1 Weight 72.121 kg PHYSICAL EXAMINATION: GENERAL: The patient is alert and oriented x3, not in any acute distress. Well developed, well nourished. HEENT: Pupils are round and equally reacting to light. EOMI. No scleral icterus. No conjunctival pallor. Normocephalic, atraumatic. No pharyngeal erythema. No thyromegaly. CARDIOVASCULAR: S1 and S2 present. No murmurs, rubs, or gallops. PULMONARY: Chest is clear to auscultation, no wheezing or crackles. ABDOMEN: Soft, nontender, nondistended, normoactive bowel sounds. No palpable organomegaly. MUSCULOSKELETAL: No joint swelling or deformity. EXTREMITIES: No cyanosis, clubbing, or pedal edema. NEUROLOGICAL: Gross neurological examination did not reveal any focal deficits. SKIN: No rashes. Results CBC & Chem 7: 02/19/18 18:48 02/19/18 18:48 Labs: Abnormal Lab Results - Last 24 Hours (Table) 02/19/18 02/19/18 02/19/18 Range/Units 18:48 18:48 18:48 Plt Count 95 L (150-450) k/uL INR 1.2 H (<1.2) Chloride 110 H (98-107) mmol/L Total Creatine Kinase (55-170) U/L HDL Cholesterol (40-60) mg/dL 02/19/18 02/20/18 02/20/18 Range/Units 18:48 00:30 07:06 Plt Count (150-450) k/uL INR (<1.2) Chloride (98-107) mmol/L Total Creatine Kinase 44 L 44 L (55-170) U/L HDL Cholesterol 61 H (40-60) mg/dL Thrombosis Risk Factor Assmnt - Choose All That Apply Each Factor Represents 1 point: Abnormal pulmonary function (COPD), Acute [place] Each Risk Factor Represents 2 Points: Age 61-74 years Thrombosis Risk Factor Assessment Total Risk Factor Score: 4 Thrombosis Risk Factor Assessment Level: Moderate Risk Assessment and Plan Plan: Chest pain: Rule out acute coronary syndromes was a valid by cardiology, I believe patient has narcotic seeking behavior. -Nicotine use: Counseling was provided -Marijuana use counseling was provided history of COPD not in acute exacerbation -Hypertension: Regarding hypertension patient blood pressure is on the low normal side patient was complaining of dizziness probably related to low normal blood pressure at this site don't see a reason for lisinopril R diuretic therapy both of these will be discontinued upon discharge. -Hyperlipidemia -History of subarachnoid hemorrhage patient feels he has a new bruise in the left holiness which was not present on exam I do not believe we need a CAT scan of the head at this time which will only cause increase her radiation without any benefit. -History of coronary disease with stent in the past -Depression -Complains of weight loss: I cannot verify this but will need further evaluation with a regular, and cancer screening procedures as an outpatient patient will need PCP follow-up. -Complains of shortness of breath although patient clinical exam is essentially within normal limits patient is ambulating well vitals are stable patient is not hypoxic upon ablation.
--- NOTE | 2018-02-20 12:29 | P.DS ---
Providers Date of admission: 02/19/18 21:19 Attending physician: Tobi Rojas Consults: 02/19/18 21:20 Consult Physician Urgent Consulting Provider: Cliff Rosario Consult Reason/Comments: cp Do you want consulting provider notified?: Yes Primary care physician: Stated None Hospital Course: Please refer to my HPI Plan - Discharge Summary Discharge Rx Participant: No New Discharge Prescriptions: Discontinued Lisinopril [Zestril] 5 mg PO DAILY Furosemide [Lasix] 20 mg PO DAILY No Action Aspirin EC [Ecotrin] 325 mg PO DAILY Lovastatin [Mevacor] 80 mg PO HS Magnesium(Unknown Dose) 1 tab PO DAILY Metoprolol Tartrate [Lopressor] 25 mg PO DAILY Multivitamins, Thera [Multivitamin (formulary)] 1 tab PO DAILY Potassium 99 mg PO DAILY Discharge Medication List Aspirin EC [Ecotrin] 325 mg PO DAILY 02/19/18 [History] Lovastatin [Mevacor] 80 mg PO HS 02/19/18 [History] Magnesium(Unknown Dose) 1 tab PO DAILY 02/19/18 [History] Metoprolol Tartrate [Lopressor] 25 mg PO DAILY 02/19/18 [History] Multivitamins, Thera [Multivitamin (formulary)] 1 tab PO DAILY 02/19/18 [History ] Potassium 99 mg PO DAILY 02/19/18 [History] Follow up Appointment(s)/Referral(s): None,Stated [Primary Care Provider] - 1-2 days Discharge Disposition: HOME SELF-CARE
[2018-02-20] MEDS ORDERED: ATORVASTATIN 20 MG TAB PO SCH (21:00)
[2018-02-21] MEDS ORDERED: LISINOPRIL 5 MG TAB PO SCH (09:00)
[2018-02-21] MEDS ORDERED: FUROSEMIDE 20 MG TAB PO SCH (09:00)
== END 2018-02-20 10:58 | disposition home or self-care (01) ==
LOC: EC 16:52 → 3OBS 21:19
PROVIDERS: ADMIT Internal Medicine; ATTEND Internal Medicine
DX: R07.89 Other chest pain (principal); Z76.5 Malingerer [conscious simulation]; R11.0 Nausea; I25.10 Atherosclerotic heart disease of native coronary artery without angina pectoris; I10 Essential (primary) hypertension; R61 Generalized hyperhidrosis; J44.9 Chronic obstructive pulmonary disease, unspecified; F12.90 Cannabis use, unspecified, uncomplicated; F17.210 Nicotine dependence, cigarettes, uncomplicated; B19.20 Unspecified viral hepatitis C without hepatic coma; K21.9 Gastro-esophageal reflux disease without esophagitis; M06.9 Rheumatoid arthritis, unspecified; M19.90 Unspecified osteoarthritis, unspecified site; F32.9 Major depressive disorder, single episode, unspecified; F41.9 Anxiety disorder, unspecified; G89.29 Other chronic pain; K58.9 Irritable bowel syndrome, unspecified; M48.00 Spinal stenosis, site unspecified; M54.16 Radiculopathy, lumbar region; R42 Dizziness and giddiness; H53.8 Other visual disturbances; R63.4 Abnormal weight loss; E78.5 Hyperlipidemia, unspecified; Z79.82 Long term (current) use of aspirin; Z79.899 Other long term (current) drug therapy; Z88.6 Allergy status to analgesic agent; Z88.5 Allergy status to narcotic agent; Z88.8 Allergy status to other drugs, medicaments and biological substances; Z95.5 Presence of coronary angioplasty implant and graft; I25.2 Old myocardial infarction; Z90.49 Acquired absence of other specified parts of digestive tract; Z87.19 Personal history of other diseases of the digestive system; Z87.01 Personal history of pneumonia (recurrent); Z87.11 Personal history of peptic ulcer disease; Z87.820 Personal history of traumatic brain injury; Z86.13 Personal history of malaria; Z82.49 Family history of ischemic heart disease and other diseases of the circulatory system
CPT/HCPCS: 99285 ×2; 96374 ×2; 96376; 36415; 93005; 80061; 80053; 82550 ×2; 82553 ×2; 83735; 84484 ×2; 85025; 85610; 85730; 71046; G0378 ×2; J2270 ×2

== ENCOUNTER 2018-05-14 11:55 | Inpatient (IN) | payer MEDICARE ==
[2018-05-14 12:40] LABS: Basophils % (A) 0 %; Eosinophils # (A) 0.1 k/uL (0-0.7); Eosinophils % (A) 1 %; HCT 43.1 % (39.0-53.0); Lymphocytes # (A) 0.8 k/uL (1.0-4.8); Lymphocytes % (A) 13 %; MCH 32.4 pg (25.0-35.0); MCHC 34.8 g/dL (31.0-37.0); Mean Platelet Volume 8.2; Monocytes # (A) 0.4 k/uL (0-1.0); Monocytes % (A) 6 %; Neutrophils # (A) 4.9 k/uL (1.3-7.7); Neutrophils % (A) 79 %; Platelet Count 126 k/uL (150-450); RBC 4.63 m/uL (4.30-5.90); RDW 13.6 % (11.5-15.5); WBC 6.2 k/uL (3.8-10.6)
[2018-05-14 12:54] LABS: D-Dimer 0.46 mg/L FEU (<0.60); INR 1.2 (<1.2); Partial Thromboplastin Time 24.2 sec (22.0-30.0); Prothrombin Time 11.5 sec (9.0-12.0)
--- NOTE | 2018-05-14 12:57 | XR ---
EXAMINATION TYPE: XR chest 2V DATE OF EXAM: 05/14/2018 COMPARISON: Prior chest x-ray 02/19/[address] 10/15/2013 HISTORY: Chest pain TECHNIQUE: Frontal and lateral views of the chest are obtained. FINDINGS: Patient is rotated and there are overlying cardiac leads, exam is expiratory. Interstitium is increased. There is no focal air space opacity, pleural effusion, or pneumothorax seen. The cardi ac silhouette size is stable accounting for differences in technique. The osseous structures are in tact. IMPRESSION: Expiratory rotated exam. There is underlying emphysema. Difficult to exclude interstitia l edema. Follow-up may be of benefit.
[2018-05-14 13:25] LABS: Creatine Kinase 76 U/L (55-170)
[2018-05-14 13:27] LABS: ALT 25 U/L (21-72); AST 36 U/L (17-59); Albumin 3.7 g/dL (3.5-5.0); Alkaline Phosphatase 72 U/L (38-126); Amylase 60 U/L (30-110); Anion Gap 10 mmol/L; Blood Urea Nitrogen 12 mg/dL (9-20); Calcium 8.6 mg/dL (8.4-10.2); Carbon Dioxide 20 mmol/L (22-30); Chloride 110 mmol/L (98-107); Glucose 90 mg/dL (74-99); Lipase 25 U/L (23-300); Sodium 140 mmol/L (137-145); Total Bilirubin 0.8 mg/dL (0.2-1.3); Total Protein 6.8 g/dL (6.3-8.2)
[2018-05-14 13:38] LABS: Creatine Kinase MB 1.2 ng/mL (0.0-2.4); Troponin I <0.012 ng/mL (0.000-0.034)
[2018-05-14 13:56] LABS: Potassium 4.2 mmol/L (3.5-5.1)
--- NOTE | 2018-05-14 14:16 | ED ---
Chest Pain HPI - General Chief Complaint: Chest Pain Stated Complaint: chest pain Time Seen by Provider: 05/14/18 12:00 Source: patient, EMS, RN notes reviewed Mode of arrival: EMS Limitations: no limitations - History of Present Illness Initial Comments: This is a 62-year-old male with a history of heart disease who presents with complaints of chest pain. He's had intermittent episodes of it he states he been having intermittent chest pain for last month he has is 10/10 severity it goes from the middle of his chest up to a stroke states it feels bigger bubble. He feels similar to when he is had previous heart problems. He was given aspirin and nitroglycerin as well as Zofran with some relief by paramedics. MD Complaint: chest pain - Related Data Home Medications Medication Instructions Recorded Confirmed Aspirin EC [Ecotrin] 325 mg PO Q6H PRN 02/19/18 05/14/18 Allergies Allergy/AdvReac Type Severity Reaction Status Date / Time haloperidol [From Haldol] Allergy Confusion Verified 05/14/18 12:24 ketorolac [From Toradol] Allergy Diarrhea Verified 05/14/18 12:24 naproxen [From Naprosyn] Allergy Anaphylaxis Verified 05/14/18 12:24 olanzapine [From Zyprexa] Allergy Confusion Verified 05/14/18 12:24 Review of Systems ROS Statement: Those systems with pertinent positive or pertinent negative responses have been documented in the HPI. ROS Other: All systems not noted in ROS Statement are negative. EKG Findings - EKG Results: EKG: interpreted by NITISH, sinus rhythm (Sinus rhythm with occasional PVCs rate was 76. Interval 156 QRS duration 90 daily since QTC 46/456 left exodeviation no old inferior changes old anterior changes) Past Medical History Past Medical History: Coronary Artery Disease (CAD), Chest Pain / Angina, COPD, GERD/Reflux, GI Bleed, Hyperlipidemia, Hypertension, Liver Disease, Myocardial Infarction ([place]), Osteoarthritis (OA), Pneumonia, Rheumatoid Arthritis (RA) Additional Past Medical History / Comment(s): CHI, SUBARACHNOID HEMORRHAGE-eyes are light sensitive at times, [place]'s x 7 per pt, chronic pain, lumbar radiculopathy, DDD, scoliosis, spinal stenosis, gastric/douodenal ulcers, lower GI bleed, hepatitis C with unsuccessful treatment, malaria, IBS, bilateral hand/ fingers fractures, R index finger tip missing, hypoglycemia. Last Myocardial Infarction Date:: 2011? History of Any Multi-Drug Resistant Organisms: None Reported Past Surgical History: Back Surgery, Cholecystectomy, Heart Catheterization With Stent Additional Past Surgical History / Comment(s): PCI with stents (pt thinks he has 5 stents), PTCA in 2016, multiple back surgeries, EGD/colonoscopy. Past Anesthesia/Blood Transfusion Reactions: No Reported Reaction Additional Past Anesthesia/Blood Transfusion Reaction / Comment(s): 11/17/14 Pt denies blood transfusion. Date of Last Stent Placement:: 2011? Past Psychological History: Anxiety, Depression Smoking Status: Current every day smoker Past Alcohol Use History: None Reported Past Drug Use History: Marijuana - Past Family History Mother Family Medical History: Hypertension Father Family Medical History: Coronary Artery Disease (CAD) General Exam - General Exam Comments Initial Comments: This is a well-developed well-nourished awake alert oriented 3 male Limitations: no limitations General appearance: alert, in no apparent distress Head exam: Present: atraumatic, normocephalic, normal inspection Eye exam: Present: normal appearance, PERRL, EOMI. Absent: scleral icterus, conjunctival injection, periorbital swelling ENT exam: Present: normal exam, mucous membranes moist Neck exam: Present: normal inspection, full ROM. Absent: tenderness, meningismus, lymphadenopathy Respiratory exam: Present: normal lung sounds bilaterally. Absent: respiratory distress, wheezes, rales, rhonchi, stridor Cardiovascular Exam: Present: regular rate, normal rhythm, normal heart sounds. Absent: systolic murmur, diastolic murmur, rubs, gallop, clicks GI/Abdominal exam: Present: soft, normal bowel sounds. Absent: distended, tenderness, guarding, rebound, rigid Extremities exam: Present: normal inspection, full ROM, normal capillary refill. Absent: tenderness, pedal edema, joint swelling, calf tenderness Back exam: Present: normal inspection Neurological exam: Present: alert, oriented X3, CN II-XII intact Psychiatric exam: Present: normal affect, normal mood Skin exam: Present: warm, dry, intact, normal color. Absent: rash Course Vital Signs 05/14/18 05/14/18 11:57 14:02 Temperature 98.8 F Pulse Rate 67 63 Respiratory 18 18 Rate Blood Pressure 132/76 118/61 O2 Sat by Pulse 94 L 98 Oximetry - Reevaluation(s) Reevaluation #1: 05/14/18 14:56 Reevaluation patient reveals he is without pain at this time. Chest Pain MDM - MDM I did review the imaging and reports no acute findings. I did discuss findings with the patient family members patient will be admitted for evaluation of chest pain Critical Care Time Critical Care Time: Yes Critical Care Time: 32 minutes of critical care time which includes monitoring EMS run and discussed with paramedics history physical labs x-rays several reevaluation the patient response to fluids and therapy rendered patient discussion family members discussion discussed with the main physician admission orders and documentation of the above Disposition Clinical Impression: Chest pain, Unstable angina Disposition: ADMITTED IP TO THIS HOSP Condition: Stable Referrals: Antoinette Lemon MD [Primary Care Provider] - 1-2 days
[2018-05-14] MEDS ORDERED: HEPARIN SODIUM,PORCINE 5,000 UNIT/ML 1 ML VIAL IV ONE (14:58)
[2018-05-14] MEDS ORDERED: NITROGLYCERIN SL TABS 0.4 MG TAB SUBLINGUAL PRN (14:58)
[2018-05-14] MEDS ORDERED: HEPARIN SOD,PORK IN 0.45% NACL 25,000 UNIT in 0.45% NACL 1 500ML.BAG IV SCH (15:00)
[2018-05-14] MEDS: SODIUM CHLORIDE 0.9% 1,000 ML IV SCH (15:41)
[2018-05-14] MEDS ORDERED: ACETAMINOPHEN TAB 500 MG TAB PO PRN (17:37)
[2018-05-14] MEDS ORDERED: TEMAZEPAM 15 MG CAP PO PRN (17:37)
[2018-05-14] MEDS ORDERED: ALPRAZolam 0.25 MG TAB PO PRN (17:37)
[2018-05-14] MEDS ORDERED: HYDROmorphone 1 MG/ML 1 ML SYRINGE IVP PRN (17:37)
[2018-05-14] MEDS ORDERED: IOPAMIDOL-300 CONTRAST 30 ML VIAL (ORAL USE) PO PRN (18:40)
[2018-05-14 18:41] LABS: Appearance,Urine Clear (Clear); Bilirubin,Urine Negative (Negative); Blood,Urine Negative (Negative); Color,Urine Light Yellow; Glucose,Urine (UA) Negative (Negative); Ketones,Urine Negative (Negative); Leukocyte Esterase,Urine Negative (Negative); Nitrite,Urine Negative (Negative); Protein,Urine Negative (Negative); Specific Gravity,Urine 1.006 (1.001-1.035); Urobilinogen,Urine <2.0 mg/dL (<2.0)
[2018-05-14] MEDS: NICOTINE 14MG/24HR PATCH TRANSDERM SCH ×2 (18:43→18:53)
[2018-05-14] MEDS: NITROGLYCERIN OINT 1 INCH/GM PACKET TOPICAL SCH ×2 (18:43→23:23)
[2018-05-14 18:57] LABS: Amphetamine Screen,Urine Not Detected (NotDetected); Barbiturate Screen,Urine Not Detected (NotDetected); Benzodiazepines Screen,Urine Not Detected (NotDetected); Cocaine Screen,Urine Not Detected (NotDetected); Methadone Screen, Urine Not Detected (NotDetected); Opiate Screen,Urine Not Detected (NotDetected); Oxycodone Screen, Urine Not Detected (NotDetected); Phencyclidine Screen,Urine Not Detected (NotDetected); Tricyclic Antidepressant,Urine Not Detected (NotDetected); Urn Cannabinoid Scrn Detected (NotDetected)
--- NOTE | 2018-05-14 19:12 | HP ---
HISTORY AND PHYSICAL CHIEF COMPLAINTS: Weakness and chest pain. HISTORY OF PRESENT ILLNESS: This 62-year-old gentleman with a past medical history of CAD and stent, history of COPD, GERD, GI bleed, hypertension, hyperlipidemia, history of liver disease, history of myocardial infarction, history of pneumonia, history of rheumatoid arthritis, history of subarachnoid hemorrhage, being followed by Claribel Ibarra and Dr. Antoinette Lemon in the outpatient setting, also has a history of anxiety, depression. The patient is now complaining of weakness for the last several days. The patient is also complaining of intermittent chest pain for the past several days which was felt in the anterior part of the chest; felt like a big bubble; the pain is similar to previous heart attacks. There is no history of any radiation or any aggravating or relieving factors at this time. The patient came to [facility] and was admitted for further evaluation and treatment. Of note, the patient also reports significant weight loss, 230 from last year and more than 140 this year. There is no history of fever, rigors. No history of headache, loss of consciousness or seizures. PAST MEDICAL HISTORY: 1. History of CAD. 2. History of COPD. 3. GERD. 4. History of GI bleed. 5. Hypertension. 6. Hyperlipidemia. 7. History of liver disease. 8. Myocardial function. 9. History of pneumonia. 10.History of rheumatoid arthritis. 11.History of subarachnoid hemorrhage. MEDICATIONS: Medications prior to admission include Ecotrin 325 mg p.r.n. ALLERGIES: 1. HALDOL. 2. KETOROLAC. 3. NAPROSYN. 4. OLANZAPINE. FAMILY HISTORY: History of hypertension in the family. SOCIAL HISTORY: History of marijuana. History of smoking. REVIEW OF SYSTEMS: ENT: Diminished hearing. Diminished vision. CARDIOVASCULAR SYSTEM: As mentioned earlier. RESPIRATORY SYSTEM: As mentioned earlier. GI: No nausea, vomiting. : No dysuria or retention. NERVOUS SYSTEM: As mentioned earlier. ALLERGY/IMMUNOLOGY: No asthma, hayfever. MUSCULOSKELETAL: As mentioned earlier. HEMATOLOGY/ONCOLOGY: No history of anemia. ENDOCRINE: No history of diabetes, hypothyroidism. CONSTITUTIONAL: As mentioned earlier. DERMATOLOGY: Negative. RHEUMATOLOGY: Negative. PSYCHIATRY: As mentioned earlier. PHYSICAL EXAMINATION: Patient is alert and oriented x3. Pulse 57, blood pressure 127/78, respiration 18, temperature 97.6, pulse ox 98% on room air. HEENT: Conjunctivae normal. Oral mucosa moist. NECK: No jugular venous distention. No carotid bruit. No lymph node enlargement. CARDIOVASCULAR SYSTEM: S1, S2 muffled. No S3. No S4. RESPIRATORY SYSTEM: Breath sounds diminished at the bases. A few scattered rhonchi and crackles. ABDOMEN: Soft, non-tender. No mass palpable. LEGS: No edema. No swelling. NERVOUS SYSTEM: Higher functions as mentioned earlier. Cranial nerves 2 through 12 grossly intact. Moves all 4 limbs. Mild diffuse weakness present. SKIN: No ulcer, rash, bleeding. LYMPHATICS: No lymph node palpable in neck, axillae or groin. JOINTS: No active deforming arthropathy. LABS: WBC normal. Platelets are 126. INR is 1.2. Sodium 140, potassium 4.2. ASSESSMENT: 1. Chest pain for evaluation; possible unstable angina. 2. Weight loss and weakness, for evaluation. 3. Thrombocytopenia. 4. History of coronary artery disease. 5. Chronic obstructive pulmonary disease. 6. Gastroesophageal reflux disease. 7. Continued ongoing nicotine dependence. 8. History of gastrointestinal bleed. 9. Hypertension. 10.Hyperlipidemia. 11.History of liver disease. 12.History of myocardial infarction. 13.History of degenerative joint disease. 14.History of pneumonia. 15.History of rheumatoid arthritis. 16.History of subarachnoid hemorrhage. 17.History of chronic pain. 18.Degenerative joint disease. 19.History of gastric duodenal ulcers. 20.History of hepatitis C with unsuccessful treatment. 21.History of irritable bowel syndrome. 22.History of malaria. 23.History of back surgery. 24.Weight loss. 25.Anxiety, depression. RECOMMENDATIONS AND DISCUSSION: In this 62-year-old gentleman who presented with multiple medical problems, we will monitor the patient closely, continue the current medications, continue symptomatic treatment. We will obtain cardiology consultation. Rule out myocardial infarction. Unstable angina protocol. I would also recommend a CT scan of the abdomen and pelvis; chest also as the baseline workup. The prognosis is guarded because of multiple complex medical issues. Further recommendations to follow. A copy of this dictation is being forwarded to Claribel Ibarra and Dr. Antoinette Lemon in the outpatient setting. MMODL / IJN: [id number] /
[2018-05-14] MEDS: HYDROcodone/APAP 5-325MG 1 EACH TAB PO PRN (20:16)
[2018-05-14 21:00] LABS: Creatine Kinase 63 U/L (55-170)
[2018-05-14 21:03] LABS: C Reactive Protein 6.5 mg/L (<10.0)
[2018-05-14 21:13] LABS: Creatine Kinase MB 1.1 ng/mL (0.0-2.4); Troponin I <0.012 ng/mL (0.000-0.034)
--- NOTE | 2018-05-14 21:50 | CT ---
EXAMINATION TYPE: CT ChestAbdPelvis wo con DATE OF EXAM: 05/14/2018 COMPARISON: HISTORY: Weight loss. Poor historian. CT DLP: 425.3 mGycm. Automated Exposure Control for Dose Reduction was Utilized. TECHNIQUE: CT scan of the thorax, abdomen and pelvis is performed without IV contrast. FINDINGS: * Within the limitations of noncontrast CT the following observations are made: LUNGS/PLEURAL SPACES/AIRWAYS: Marked emphysematous changes noted. The lungs are grossly clear, there is no concerning parenchymal mass or nodule identified. There is no pleural effusion or pneumothora x seen. The tracheobronchial tree is patent. MEDIASTINUM: There are marked coronary calcifications. Nonaneurysmal thoracic aorta atherosclerotic c hanges are noted. There are no greater than 1 cm hilar or mediastinal lymph nodes. No pericardial e ffusion is seen. OTHER: No additional significant abnormality is seen. LIVER/GB: No significant abnormality is appreciated. PANCREAS: No significant abnormality is seen. SPLEEN: No significant abnormality is seen. ADRENALS: No significant abnormality is seen. KIDNEYS: No significant abnormality is seen. BOWEL: No significant abnormality is seen. GENITAL ORGANS: No gross abnormality seen. LYMPH NODES: No greater than 1cm abdominal or pelvic lymph nodes are appreciated. OSSEOUS STRUCTURES: No significant abnormality is seen. OTHER: Nonaneurysmal atherosclerotic calcifications are noted throughout the arterial anatomy. IMPRESSION: 1. No acute osseous fracture, abnormal fluid collection, or evidence of solid organ injury in the th orax, abdomen, or pelvis. 2. Prominent coronary calcifications. 3. Prominent emphysema.
[2018-05-15 01:45] LABS: Creatine Kinase 58 U/L (55-170)
[2018-05-15 01:57] LABS: Troponin I <0.012 ng/mL (0.000-0.034)
[2018-05-15] MEDS ORDERED: HEPARIN SODIUM,PORCINE 5,000 UNIT/ML 1 ML VIAL IV PRN (02:13)
[2018-05-15] MEDS: NITROGLYCERIN OINT 1 INCH/GM PACKET TOPICAL SCH ×2 (06:44→13:26)
[2018-05-15] MEDS ORDERED: ASPIRIN 325 MG TAB PO SCH (09:00)
[2018-05-15] MEDS: NICOTINE 14MG/24HR PATCH TRANSDERM SCH (09:04)
[2018-05-15] MEDS ORDERED: REGADENOSON 0.4 MG/5 ML SYRINGE IV ONE (09:47)
[2018-05-15] MEDS ORDERED: CAFFEINE CITRATE 60 MG/3 ML VIAL IV PRN (09:47)
[2018-05-15 10:40] LABS: Anion Gap 7 mmol/L; Blood Urea Nitrogen 14 mg/dL (9-20); Calcium 8.5 mg/dL (8.4-10.2); Carbon Dioxide 22 mmol/L (22-30); Chloride 112 mmol/L (98-107); Cholesterol 130 mg/dL (<200); Glucose 80 mg/dL (74-99); HDL Cholesterol 42 mg/dL (40-60); LDL Cholesterol,Calculated 79 mg/dL (0-99); Potassium 4.4 mmol/L (3.5-5.1); Sodium 141 mmol/L (137-145); Triglycerides 45 mg/dL (<150)
[2018-05-15 10:42] LABS: Basophils % (A) 1 %; Eosinophils # (A) 0.1 k/uL (0-0.7); Eosinophils % (A) 1 %; HCT 42.7 % (39.0-53.0); HGB 14.3 gm/dL (13.0-17.5); Lymphocytes # (A) 0.9 k/uL (1.0-4.8); Lymphocytes % (A) 17 %; MCH 31.4 pg (25.0-35.0); MCHC 33.5 g/dL (31.0-37.0); MCV 93.8 fL (80.0-100.0); Mean Platelet Volume 7.1; Monocytes # (A) 0.2 k/uL (0-1.0); Monocytes % (A) 4 %; Neutrophils # (A) 3.8 k/uL (1.3-7.7); Neutrophils % (A) 76 %; RBC 4.56 m/uL (4.30-5.90); RDW 13.8 % (11.5-15.5)
[2018-05-15 10:45] LABS: Platelet Count 92 k/uL (150-450)
[2018-05-15] MEDS ORDERED: ONDANSETRON 4 MG/2 ML VIAL ONE (11:22)
--- NOTE | 2018-05-15 13:02 | NM ---
EXAMINATION TYPE: NM stress lexiscan cardiolite DATE OF EXAM: 05/15/2018 COMPARISON: 12/24/2013 HISTORY: TECHNIQUE: After the intravenous administration of 10.33 mCi Tc 99m Sestamibi - Cardiolite resting S PECT images acquired 45 minutes post injection. The patient received 0.4mg Lexiscan, 26.4 mCi Tc 99m Sestamibi - Stress images obtained [address] injection FINDINGS: Review of stress and rest SPECT images demonstrates large fixed defect involving the inferior myocard ium. Tiny area of stress-induced reversibility involving the apex and inferoapex is suggested.. [place] d analysis shows reduced wall motion in the region of concern with an estimated left ventricular ejec tion fraction of 59 %. IMPRESSION: 1. Large fixed defect involving the inferior and inferoapical myocardium. A small area of stress-shaheen stephen reversibility is suggested in the region of the apical inferior myocardium. Correlate clinically.
[2018-05-15] MEDS: PANTOPRAZOLE 40 MG TABLET PO SCH (13:25)
[2018-05-15] MEDS: FOLIC ACID 1 MG TAB PO SCH (13:25)
[2018-05-15] MEDS: MULTIVITAMINS, THERA 1 EACH TAB PO SCH (13:25)
[2018-05-15] MEDS: THIAMINE 100 MG TAB PO SCH (13:26)
[2018-05-15] MEDS: HYDROcodone/APAP 5-325MG 1 EACH TAB PO PRN ×2 (13:28→20:26)
--- NOTE | 2018-05-15 14:14 | P.CRDCN ---
History of Present Illness History of present illness: Mr. Son is a pleasant 62-year-old male past medical history significant for coronary artery disease s/p angioplasty 2012, COPD, hypertension , dyslipidemia, closed head injury, non-compliance and chronic nicotine and marijuana dependence. We have been asked to see him in consultation for chest pain. He complains of crushing chest pain that radiates up into his neck. The pain is intermittent and usually comes at rest. He has had these pains off and on for many years. The symptoms have been worse lately and he is unable to take care of himself due to increased weakness and fatigue. He also c/o coffee ground black stools over the last month. Most recently 3 days ago. He states he had an upper and lower scope 4-6 months ago. He has multiple vague complaints, is hard to differentiate what is actually bothering him the most. At the time of my exam he is resting comfortably flat in bed in no acute distress. When asked to take a deep breath he begins coughing very harshly for over 60 seconds. No sputum brought up. He states this happens frequently at home as well. EKG reveals sinus mechanism with PVC, biphasic MT inferiorly, T-wave inversion inferiorly and poor R-wave progression. Telemetry tracings indicate he had a run of non-sustained VT while sleeping this morning. He was asymptomatic. Chest xray underlying emphysema, possible interstitial edema. CT abdomen, pelvis and chest grossly clear lungs with underlying emphysema, marked coronary calcifications, no pleural effusions and no pericardial effusions. Laboratory data reviewed, hgb 14.3, plt 92, sodium 141, potassium 4.4, magnesium 2.0, creatinine 0.71, cardiac enzymes negative x3, CRP 6.5, LDL 79, HDL 42, TSH 0.829, d-dimer 0.46, NTproBNP 598. He currently takes no daily medications. He underwent PCI and stenting of a totally occluded RCA 2010, repeat catheterization in 2011 revealed a dominant RCA with a widely patent stent, significant stenosis of the circumflex which was stenting, LAD free of significant disease with an ejection fraction of 50%. Review of Systems At the time of my exam: CONSTITUTIONAL: Denies fever. Denies chills. EYES: Denies blurred vision. Denies vision changes. Denies eye pain. EARS, NOSE, MOUTH & THROAT: Denies headache. Denies sore throat. Denies ear pain. CARDIOVASCULAR: complains of chest pain. complains of shortness of breath. Denies orthopnea. Denies PND. Denies palpitations. RESPIRATORY: Denies cough. GASTROINTESTINAL: Denies abdominal pain. Denies diarrhea. Denies constipation. Denies nausea. Denies vomiting. MUSCULOSKELETAL: Denies myalgias. INTEGUMENTARY: Denies pruitis. Denies rash. NEUROLOGIC: Denies numbness. Denies tingling. complains of weakness. PSYCHIATRIC: Denies anxiety. Denies depression. ENDOCRINE: Denies fatigue. Denies weight change. Denies polydipsia. Denies polyurina. GENITOURINARY: Denies burning, hematuria or urgency with micturation. HEMATOLOGIC: Denies history of anemia. Denies bleeding. Past Medical History Past Medical History: Coronary Artery Disease (CAD), Chest Pain / Angina, COPD, GERD/Reflux, GI Bleed, Hyperlipidemia, Hypertension, Liver Disease, Myocardial Infarction (UT), Osteoarthritis (OA), Pneumonia, Rheumatoid Arthritis (RA) Additional Past Medical History / Comment(s): CHI, SUBARACHNOID HEMORRHAGE-eyes are light sensitive at times, UT's x 7 per pt, chronic pain, lumbar radiculopathy, DDD, scoliosis, spinal stenosis, gastric/douodenal ulcers, lower GI bleed, hepatitis C with unsuccessful treatment, malaria, IBS, bilateral hand/ fingers fractures, R index finger tip missing, hypoglycemia. Last Myocardial Infarction Date:: 2011? History of Any Multi-Drug Resistant Organisms: None Reported Past Surgical History: Back Surgery, Cholecystectomy, Heart Catheterization With Stent Additional Past Surgical History / Comment(s): PCI with stents (pt thinks he has 5 stents), PTCA in 2016, multiple back surgeries, EGD/colonoscopy. Past Anesthesia/Blood Transfusion Reactions: No Reported Reaction Additional Past Anesthesia/Blood Transfusion Reaction / Comment(s): (previously charted)11/17/14 Pt denies blood transfusion. Date of Last Stent Placement:: 2011? Smoking Status: Current every day smoker - Past Family History Mother Family Medical History: Hypertension Father Family Medical History: Coronary Artery Disease (CAD) Medications and Allergies Home Medications Medication Instructions Recorded Confirmed Type Aspirin EC [Ecotrin] 325 mg PO Q6H PRN 02/19/18 05/14/18 History Allergies Allergy/AdvReac Type Severity Reaction Status Date / Time haloperidol [From Haldol] Allergy Confusion Verified 05/14/18 12:24 ketorolac [From Toradol] Allergy Diarrhea Verified 05/14/18 12:24 naproxen [From Naprosyn] Allergy Anaphylaxis Verified 05/14/18 12:24 olanzapine [From Zyprexa] Allergy Confusion Verified 05/14/18 12:24 Physical Exam Vitals: Vital Signs Temp Pulse Pulse Resp BP BP BP 05/15/18 07:20 97.9 F 64 18 129/80 05/15/18 04:39 97.8 F 52 L 15 103/66 05/15/18 04:30 14 05/14/18 23:58 97.9 F 55 L 14 84/49 05/14/18 23:33 58 L 16 05/14/18 20:10 56 L 16 05/14/18 19:33 97.6 F 82 15 116/69 05/14/18 18:10 18 05/14/18 16:14 97.6 F 57 L 18 127/78 05/14/18 15:40 98.2 F 68 18 130/71 05/14/18 14:02 63 18 118/61 05/14/18 11:57 98.8 F 67 18 132/76 Pulse Ox 05/15/18 07:20 96 05/15/18 04:39 96 05/15/18 04:30 05/14/18 23:58 94 L 05/14/18 23:33 05/14/18 20:10 05/14/18 19:33 96 05/14/18 18:10 05/14/18 16:14 98 05/14/18 15:40 97 05/14/18 14:02 98 05/14/18 11:57 94 L Intake and Output 05/14/18 05/15/18 05/15/18 22:59 06:59 14:59 Intake Total 578.576 Output Total 600 300 Balance -600 278.576 Intake: Intake, IV Titration 338.576 Amount Heparin Sod,Pork in 0.45% 238.576 NaCl 25,000 unit In 0.45 % NaCl 1 500ml.bag @ 12 UNITS/KG/HR 15.24 mls/hr IV .Q24H [facility] Rx#: [id number] Sodium Chloride 0.9% 1, 100 000 ml @ 20 mls/hr IV . Q24H [facility] Rx#:[id number] Oral 240 Output: Urine 600 300 Other: Voiding Method Urinal Urinal # Voids 1 Weight 70 kg Blood pressure 103/66 heart rate 52 afebrile maintaining oxygen saturation on room air GENERAL: This is a 62-year-old male in no apparent distress at the time of my examination. Appears older than stated age. HEENT: Head is atraumatic, normocephalic. Pupils are equal, round. Sclerae anicteric. Conjunctivae are clear. Mucous membranes of the mouth are moist. Neck is supple. There is no jugular venous distention. No carotid bruit is heard. LUNGS: Course, diminished at the bases bilaterally. No wheezes or rales. No chest wall tenderness is noted on palpation or with deep breathing. HEART: Regular rate and rhythm with systolic ejection murmur at the base, no rubs or gallops. S1 and S2 heard. ABDOMEN: Soft, nontender. Bowel sounds are heard. No organomegaly noted. EXTREMITIES: No evidence of peripheral edema and no calf tenderness noted. VASCULAR: Radial and dorsalis pedis pulses palpated, no evidence of clubbing. NEUROLOGIC: Patient is awake, alert and oriented x3. Results 05/15/18 09:44 05/15/18 09:44 Cardiac Enzymes 05/14/18 05/14/18 05/14/18 Range/Units 12:50 12:50 20:20 AST 36 (17-59) U/L CK-MB (CK-2) 1.2 1.1 (0.0-2.4) ng/mL Troponin I <0.012 <0.012 (0.000-0.034) ng/mL 05/15/18 Range/Units 01:00 AST (17-59) U/L CK-MB (CK-2) 1.0 (0.0-2.4) ng/mL Troponin I <0.012 (0.000-0.034) ng/mL Coagulation 05/14/18 05/15/18 Range/Units 12:10 01:00 PT 11.5 (9.0-12.0) sec APTT 24.2 30.2 H (22.0-30.0) sec CBC 10/09/18 Range/Units 12:10 WBC 6.2 (3.8-10.6) k/uL RBC 4.63 (4.30-5.90) m/uL Hgb 15.0 (13.0-17.5) gm/dL Hct 43.1 (39.0-53.0) % Plt Count 126 L (150-450) k/uL Comprehensive Metabolic Panel 05/14/18 Range/Units 12:50 Sodium 140 (137-145) mmol/L Potassium 4.2 (3.5-5.1) mmol/L Chloride 110 H (98-107) mmol/L Carbon Dioxide 20 L (22-30) mmol/L BUN 12 (9-20) mg/dL Creatinine 0.71 (0.66-1.25) mg/dL Glucose 90 (74-99) mg/dL Calcium 8.6 (8.4-10.2) mg/dL AST 36 (17-59) U/L ALT 25 (21-72) U/L Alkaline Phosphatase 72 (38-126) U/L Total Protein 6.8 (6.3-8.2) g/dL Albumin 3.7 (3.5-5.0) g/dL Current Medications Generic Name Dose Route Start Last Admin Trade Name Freq PRN Reason Stop Dose Admin Acetaminophen 500 mg 05/14/18 17:37 Tylenol Tab PO Q6HR PRN Fever and/ or MILD Pain Hydrocodone Bitart/Acetaminophen 1 each 05/14/18 17:37 05/14/18 20:16 [place] 5-325 PO 1 each Q6HR PRN Administration MODERATE Pain Alprazolam 0.25 mg 05/14/18 17:37 Xanax PO TID PRN Anxiety Aspirin 325 mg 05/15/18 09:00 Aspirin PO DAILY CANDE Folic Acid 1 mg 05/15/18 12:00 Folic Acid PO DAILY@1200 CANDE Heparin Sodium (Porcine) 0 unit 05/15/18 02:13 05/15/18 02:26 Heparin IV 3,500 unit PER PROTOCOL PRN Administration Low PTT Protocol Hydromorphone HCl 0.5 mg 05/14/18 17:37 Dilaudid IVP Q6HR PRN Severe Pain Sodium Chloride 1,000 mls @ 20 mls/hr 05/14/18 15:00 05/14/18 15:41 Saline 0.9% IV 20 mls/hr .Q24H [facility] Administration Iopamidol 30 ml 05/14/18 18:40 05/14/18 18:55 Isovue-300 30 Ml (For Oral Use) PO 30 ml ONCE PRN Administration CT Scan Multivitamins 1 each 05/15/18 12:00 Theragran PO DAILY@1200 [facility] Nicotine 1 patch 05/14/18 18:00 05/14/18 18:53 Habitrol 14mg/24hr Patch TRANSDERM Not Given DAILY [facility] Nitroglycerin 1 inch 05/14/18 18:00 05/15/18 06:44 Nitro-Bid Oint TOPICAL Not Given Q6HR [facility] Nitroglycerin 0.4 mg 05/14/18 14:58 Nitrostat SUBLINGUAL Q5M PRN Chest Pain Pantoprazole Sodium 40 mg 05/15/18 07:30 Protonix PO AC-BRKFST [facility] Temazepam 15 mg 05/14/18 17:37 Restoril PO HS PRN Insomnia Thiamine HCl 100 mg 05/15/18 12:00 Vitamin B-1 PO DAILY@1200 [facility] Intake and Output 05/14/18 05/15/18 05/15/18 22:59 06:59 14:59 Intake Total 578.576 Output Total 600 300 Balance -600 278.576 Intake: Intake, IV Titration 338.576 Amount Heparin Sod,Pork in 0.45% 238.576 NaCl 25,000 unit In 0.45 % NaCl 1 500ml.bag @ 12 UNITS/KG/HR 15.24 mls/hr IV .Q24H [facility] Rx#: [id number] Sodium Chloride 0.9% 1, 100 000 ml @ 20 mls/hr IV . Q24H [facility] Rx#:[id number] Oral 240 Output: Urine 600 300 Other: Voiding Method Urinal Urinal # Voids 1 Weight 70 kg 05/14/18 12:10 05/14/18 12:50 Assessment and Plan Assessment: ASSESSMENT Chest pain, atypical. An acute event has been ruled out. Coronary artery disease s/p angioplasty 2010, multi-vessel Dyslipidemia Hypertension Chronic nicotine dependence Non-compliance PLAN An acute coronary event has been ruled out. Discontinue heparin infusion. Check stool for blood. 2D echocardiogram has been obtained and will be reviewed. Perform Lexiscan stress test to assess for reversible ischemic changes. Recommend he take small dose of aspirin 81 mg daily and lopressor 12.5 mg BID. Smoking cigarettes and marijuana discourages and recommended cessation of both. Further recommendations to follow based on clinical course. Thank you kindly for this consultation. Nurse Practitioner note has been reviewed, I agree with a documented findings and plan of care. Patient was seen and examined.
--- NOTE | 2018-05-15 14:55 | PN ---
PROGRESS NOTE DATE OF SERVICE: 05/15/2018 This is a 62-year-old gentleman who was admitted with chest pain, also had weight loss and weakness and no chest pain. No palpitations. No fever. Patient also has COPD. A CAT scan of chest, abdomen and pelvis was done and showed no acute abnormality. A Lexiscan showed large fixed defect in inferoapical myocardium and small area of stress- induced reversibility also noted. No chest pain. No palpitations. No fever. PHYSICAL EXAM: Alert and oriented x3. Pulse 56, blood pressure 130/70, respiration 18, temperature 97.8, pulse ox 96% on room air. HEENT: Conjunctivae normal, oral mucosa moist. Neck is no jugular venous distention. CARDIOVASCULAR SYSTEM: S1, S2, muffled. No cardiac system of respiration the bases no rhonchi no crackles. ABDOMEN: Soft, nontender. No mass palpable. LEGS: No edema, no swelling. NERVOUS SYSTEM: Diffusely weak. LABS: WBC is 5, hemoglobin is 14.2, platelets are 92. ASSESSMENT: 1. Chest pain, possible unstable angina. 2. Abnormal stress test with fixed defect. 3. Weight loss and weakness for evaluation. 4. Chronic obstructive pulmonary disease. 5. Thrombocytopenia. 6. History of coronary artery disease. 7. Gastroesophageal reflux disease. 8. Continued ongoing nicotine dependence. 9. History of gastrointestinal bleed. 10.Hypertension. 11.Hyperlipidemia. 12.Gait dysfunction. 13.History of liver disease. 14.History of myocardial infarction. 15.History of degenerative joint disease. 16.History of pneumonia. 17.History of rheumatoid arthritis. 18.History of subacute hemorrhage. 19.History of chronic pain. 20.History of weight loss. 21.History of degenerative joint disease. 22.History of gastric duodenal ulcer. 23.History of hepatitis C with unsuccessful treatment. 24.History of rectal bowel syndrome. 25.History of malaria. 26.Back surgery. 27.History of weight loss. 28.History of anxiety, depression. RECOMMENDATION: Recommend to continue current management and symptomatic treatment; otherwise, follow closely with Cardiology, PT, OT evaluation, and possible ECF rehab. Continue the rest of the medications. Prognosis guarded. Further recommendations to follow. There is no evidence of malignancy currently. Further recommendations to follow. MMODL / IJN: [id number] /
--- NOTE | 2018-05-15 16:57 | US ---
EXAMINATION TYPE: US carotid duplex BILAT DATE OF EXAM: 05/15/2018 COMPARISON: 09/23/2012 CLINICAL HISTORY: stroke; smoker x 51 years; CAD EXAM MEASUREMENTS: RIGHT: Peak Systolic Velocity (PSV) cm/sec ----- Right CCA: 81.6 ----- Right ICA: 93.0 ----- Right ECA: 84.1 ICA/CCA ratio: 1.1 RIGHT: End Diastole cm/sec ----- Right CCA: 24.8 ----- Right ICA: 29.8 ----- Right ECA: 13.4 LEFT: Peak Systolic Velocity (PSV) cm/sec ----- Left CCA: 84.3 ----- Left ICA: 91.0 ----- Left ECA: 83.3 ICA/CCA ratio: 1.1 LEFT: End Diastole cm/sec ----- Left CCA: 28.5 ----- Left ICA: 33.7 ----- Left ECA: 18.3 VERTEBRALS (direction of flow): Right Vertebral: Antegrade Left Vertebral: Antegrade Rhythm: Normal Mild to moderate intimal wall changes are noted at bilateral carotid bifurcation and PSV is wnl bilat erally. IMPRESSION: There is antegrade flow in the vertebral arteries. There is bilateral plaque formation a t the carotid artery bifurcations. Images in measurements suggest 30-40% stenosis in both internal ca rotid arteries. No adverse change compared to old exam. Criteria for Assigning % of Stenosis / Diameter reduction (Estimation based on the indirect measurements of the internal carotid artery velocities (ICA PSV). 1. Normal (no stenosis)=ICA PSV < 125 cm/s: ratio < 2.0: ICA EDV<40 cm/s. 2. Less than 50% stenosis=ICA PSV < 125 cm/s: ratio < 2.0: ICA EDV<40 cm/s. 3. 50 to 69% stenosis=ICA PSV of 125 to 230 cm/s: ration 2.0 ? 4.0: ICA EDV 40-100 cm/s. 4. Greater than 70% stenosis to near occlusion= ICA PSV > 230 cm/s: ratio > 4.0: ICA EDV > 100 cm/s. 5. Near occlusion= ICA PSV velocities may be low or undetectable: variable ratio and ICA EDV. 6. Total occlusion=unable to detect flow.
[2018-05-15] MEDS: SODIUM CHLORIDE 0.9% 1,000 ML IV SCH (18:28)
--- NOTE | 2018-05-15 20:16 | ECHOF ---
Referral Reason:Stroke MEASUREMENTS -------- HEIGHT: 157.5 cm WEIGHT: 69.8 kg BP: 103/66 IVSd: 1.2 cm (0.6 - 1.1) LVIDd: 4.6 cm (3.9 - 5.3) LVPWd: 1.0 cm (0.6 - 1.1) IVSs: 1.4 cm LVIDs: 3.6 cm LVPWs: 1.1 cm LA Diam: 3.2 cm (2.7 - 3.8) Ao Diam: 3.7 cm (2.0 - 3.7) AV Cusp: 1.9 cm (1.5 - 2.6) LA Diam: 3.4 cm (2.7 - 3.8) MV EXCURSION: 19.436 mm (> 18.000) MV EF SLOPE: 47 mm/s (70 - 150) EPSS: 1.1 cm MV E Jasen: 0.72 m/s MV DecT: 232 ms MV A Jasen: 0.80 m/s MV E/A Ratio: 0.90 RAP: 5.00 mmHg RVSP: 27.28 mmHg FINDINGS -------- Sinus rhythm. This was a technically good study. The left ventricular size is normal. There is mild concentric left ventricular hypertrophy. Overa ll left ventricular systolic function is mild-moderately impaired with, an EF between 40 - 45 %. Ba shayan inferior LV wall motion is hypokinetic. Mid inferior LV wall motion is hypokinetic. The right ventricle is normal in size. The left atrial size is normal. The right atrial size is normal. The aortic valve is trileaflet, and appears structurally normal. No aortic stenosis or regurgitation. Mild mitral annular calcification present. Mild mitral regurgitation is present. Mild tricuspid regurgitation present. There is no evidence of pulmonary hypertension. The right v entricular systolic pressure, as measured by Doppler, is 27.28mmHg. Trace/mild (physiologic) pulmonic regurgitation. The aortic root size is normal. There is no pericardial effusion. CONCLUSIONS -------- 1. The left ventricular size is normal. 2. There is mild concentric left ventricular hypertrophy. 3. Basal inferior LV wall motion is hypokinetic. 4. The right ventricle is normal in size. 5. The left atrial size is normal. 6. The right atrial size is normal. 7. The aortic valve is trileaflet, and appears structurally normal. No aortic stenosis or regurgitati on. 8. Mild mitral annular calcification present. 9. Mild mitral regurgitation is present. 10. Mild tricuspid regurgitation present. 11. There is no evidence of pulmonary hypertension. 12. The right ventricular systolic pressure, as measured by Doppler, is 27.28mmHg. 13. Trace/mild (physiologic) pulmonic regurgitation. 14. The aortic root size is normal. 15. There is no pericardial effusion. [employer]: Digna Renteria RDCS
[2018-05-15] MEDS: METOPROLOL TARTRATE 12.5 MG TAB PO SCH (20:26)
--- NOTE | 2018-05-15 21:18 | EST ---
EXERCISE STRESS DATE OF SERVICE: 05/15/2018 AGE: 62 SEX: Male HT: 70" WT: 154 pounds PROTOCOL: Lexiscan Cardiolite STAGE: DURATION OF EXERCISE: HEART RATE REST: 66 BLOOD PRESSURE REST: 129/90 MAXIMUM HEART RATE ACHIEVED: 79 MAXIMUM BLOOD PRESSURE: 135/70 85% MPHR: 133 100% MPHR: 157 METS: INDICATIONS: Chest pain. CLINICAL INFORMATION: Baseline EKG revealed a normal sinus rhythm with evidence of old inferior AL and poor R- wave progression over the precordial leads with isolated PVCs. With Lexiscan administration, patient developed significant nausea and emesis. His heart rate changed from 66 to 79 beats per minute. Blood pressure changed from 129/80 to 135/70. EKG remained inconclusive and unremarkable. There was a lot of artifact. By EKG criteria, this is an inconclusive Lexiscan stress test with resting EKG changes. The nuclear scan results, which are more pertinent, will be reported by the radiologist. MMGELACIO / YOLIN: [id number] /
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
[2018-05-16] MEDS: HYDROcodone/APAP 5-325MG 1 EACH TAB PO PRN ×2 (04:15→12:47)
[2018-05-16 07:17] LABS: Basophils % (A) 0 %; Eosinophils # (A) 0.2 k/uL (0-0.7); Eosinophils % (A) 4 %; HCT 43.4 % (39.0-53.0); HGB 14.9 gm/dL (13.0-17.5); Lymphocytes # (A) 1.2 k/uL (1.0-4.8); Lymphocytes % (A) 25 %; MCH 32.3 pg (25.0-35.0); MCHC 34.4 g/dL (31.0-37.0); MCV 93.8 fL (80.0-100.0); Mean Platelet Volume 7.1; Monocytes # (A) 0.3 k/uL (0-1.0); Monocytes % (A) 6 %; Neutrophils % (A) 63 %; Platelet Count 101 k/uL (150-450); RBC 4.62 m/uL (4.30-5.90); RDW 13.5 % (11.5-15.5); WBC 4.7 k/uL (3.8-10.6)
[2018-05-16 07:28] LABS: Anion Gap 8 mmol/L; Blood Urea Nitrogen 16 mg/dL (9-20); Calcium 8.9 mg/dL (8.4-10.2); Carbon Dioxide 23 mmol/L (22-30); Chloride 111 mmol/L (98-107); Glucose 90 mg/dL (74-99); Potassium 4.4 mmol/L (3.5-5.1); Sodium 142 mmol/L (137-145)
[2018-05-16 08:05] VITALS: RESP 18
--- NOTE | 2018-05-16 08:19 | CT ---
EXAMINATION TYPE: CT brain wo con DATE OF EXAM: 05/16/2018 COMPARISON: 11/16/2014 HISTORY: CABRAL CT DLP: 1101.4 mGycm Automated exposure control for dose reduction was used. FINDINGS: There is circumferential moderate to severe mucosal thickening of the right maxillary sinus and moder ate mucosal thickening of the left maxillary sinus. Air-fluid levels in inspissated debris are seen w ithin the left maxillary sinus. Sphenoid, ethmoid, and frontal sinuses as well as mastoid air cells a re well aerated. No minimal ear cavity fluid. Atherosclerosis is seen of the intracranial vasculature . Few scattered areas of hypointensity throughout the subcortical white matter, most commonly on the ba sis of microangiopathy. Finch-white matter interface is maintained. No evidence of acute intracranial hemorrhage, midline shift or mass effect. IMPRESSION: 1. NO ACUTE INTRACRANIAL PROCESS. 2. MODERATE TO SEVERE MAXILLARY PARANASAL SINUS DISEASE, NEW FROM THE PRIOR.
--- NOTE | 2018-05-16 08:26 | CT ---
EXAMINATION TYPE: CT lumbar spine wo con DATE OF EXAM: 05/16/2018 7:50 AM COMPARISON: 05/02/2014 HISTORY: Back pain CT DLP: 425.3 from CAP scan mGycm Automated exposure control for dose reduction was used. TECHNIQUE: Reconstructed images of the lumbar spine was were obtained from the CT abdomen pelvis date d 05/14/2018. Bone and soft tissue window settings are submitted as well as coronal and sagittal karly nstructions. FINDINGS: Lumbar vertebral bodies maintain normal vertebral body heights and alignment. There is extensive mult ilevel degenerative disc disease as seen on the prior 2013, mildly progressed in the interim. There i s vacuum disc phenomenon, facet arthropathy, posterior osteophytes, intervertebral disc space narrowi ng, Schmorl's nodes, endplate sclerosis, and anterior osteophytes. L1-L2: There is a broad-based disc bulge and facet arthropathy creating moderate bilateral neural for aminal narrowing and mild spinal canal stenosis L2-L3: There is a broad-based disc bulge, ligamentum flavum buckling, and facet arthropathy creating moderate bilateral neural foraminal narrowing and moderate spinal canal stenosis. L3-L4: Extensive facet arthropathy and small posterior osteophytes in combination with a broad-based disc bulge create severe bilateral neural foraminal narrowing and moderate spinal canal stenosis. L4-L5: Protuberant posterior osteophyte impresses upon the thecal sac and creates severe spinal canal stenosis. Arthropathy of the facet joints create severe right and moderate to severe left neural for aminal narrowing. L5-S1: Broad-based disc bulge and facet arthropathy as well as posterior osteophytes create moderate bilateral neural foraminal narrowing and mild spinal canal stenosis. Visualized portions of the abdomen or discussed in the CT chest, abdomen and pelvis dictation from [facility] these images were created. Hemilaminectomy defect is seen of L5, surgical or congenital. No acute fracture or malalignment. IMPRESSION: 1. No acute fracture or malalignment of the lumbar spine. 2. Extensive advanced multilevel degenerative disc disease creating multilevel spinal canal stenosis and neural foraminal narrowing, severe in some locations as described above.
[2018-05-16] MEDS: PANTOPRAZOLE 40 MG TABLET PO SCH (08:56)
[2018-05-16] MEDS: METOPROLOL TARTRATE 12.5 MG TAB PO SCH (08:56)
[2018-05-16] MEDS ORDERED: ATORVASTATIN 40 MG TAB PO SCH (09:00)
[2018-05-16] MEDS ORDERED: ASPIRIN 81 MG PO SCH (09:00)
[2018-05-16] MEDS: NICOTINE 14MG/24HR PATCH TRANSDERM SCH (09:15)
[2018-05-16] MEDS ORDERED: HYDROmorphone 2 MG TAB PO PRN (09:35)
--- NOTE | 2018-05-16 10:15 | XR ---
Cervical spine HISTORY: Neck pain 5 views of the cervical spine and 6 images, comparison to prior cervical spine 08/26/2013 There is multilevel spondylosis. Cervical vertebral bodies show preserved height, alignment, bone min eralization. There is spondylosis at C3-4, C4-5, C5-6 and C6-7 with associated loss of disc height. F acet arthropathy changes present. Prevertebral soft tissues are within normal limits. Suspect there a re carotid artery calcifications. Multilevel foraminal encroachment is present due to uncovertebral j oint hypertrophy, facet arthropathy to include C2-3, C3-4, C4-5, C5-6 and C6-7 bilaterally. IMPRESSION: Degenerative disc disease. Additional findings above.
[2018-05-16 11:03] VITALS: BP 119/72; PULSE 59; TEMP 97.7
[2018-05-16] MEDS: FOLIC ACID 1 MG TAB PO SCH (12:47)
[2018-05-16] MEDS: THIAMINE 100 MG TAB PO SCH (12:47)
[2018-05-16] MEDS: MULTIVITAMINS, THERA 1 EACH TAB PO SCH (12:47)
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
--- NOTE | 2018-05-17 10:30 | DS ---
DISCHARGE SUMMARY FINAL DIAGNOSES: 1. Chest pain, possible unstable angina with stress test showing no significant reversibility according to yacht captain, Dr. Corrine Villagran. 2. Weight loss and weakness for evaluation. 3. Chronic obstructive pulmonary disease. 4. Thrombocytopenia. 5. History of coronary artery disease. 6. Gastroesophageal reflux disease. 7. Continued ongoing nicotine dependence. 8. History of gastrointestinal bleed. 9. Hypertension. 10.Hyperlipidemia. 11.Gait dysfunction. 12.History of liver disease. 13.History of myocardial infarction. 14.History of degenerative joint disease. 15.History of pneumonia. 16.History of rheumatoid arthritis. 17.History of subarachnoid hemorrhage. 18.History of chronic pain syndrome. 19.History of weight loss. 20.Degenerative joint disease. 21.History of gastric duodenal ulcer. 22.History hepatitis C with unsuccessful treatment. 23.History of irritable bowel syndrome. 24.History of malaria. 25.History of back surgery. 26.History of weight loss. 27.History of anxiety, depression. 28.History of noncompliance. DISCHARGE DISPOSITION: The patient will be discharged in stable condition with guarded prognosis. Discharge cleared by Cardiology HISTORY OF PRESENT ILLNESS: This 62-year-old gentleman with a past medical history of multiple medical problems as mentioned earlier being followed by Dr. Antoinette Lemon in the outpatient setting was admitted with multiple symptomatology as mentioned earlier. The patient was treated in conjunction cardiology. Patient improved significantly. forestry workers is consulted. Please note the block and case maker notes for further information. On exam, vital signs are stable. CARDIOVASCULAR: S1 and S2 muffled. ABDOMEN: Soft. NERVOUS SYSTEM: No focal deficits. DISCHARGE ADVICE: 1. Diet is cardiac diet. 2. Activity limited until followup. 3. Follow up with Dr. Corrine Villagran . 4. Follow up with Dr. Antoinette Lemon in 2 to 3 days. MEDICATIONS: 1. Aspirin 81 mg p.o. daily. 2. Lipitor 40 mg daily. 3. Folic acid 1 mg daily. 4. Lopressor 12.5 mg b.i.d. 5. Multivitamins one p.o. daily. 6. Habitrol 14 daily. 7. Vitamin B1, thiamine, 100 mg p.o. daily. No ETOH. No smoking. Once again, the patient will be discharged in a stable condition with guarded prognosis. MMODL / IJN: [id number] /
== END 2018-05-16 14:25 | disposition home or self-care (01) | DRG 303 ==
LOC: EC 11:55 → 3OBS 14:58 → OBSVTOIN 05-15 13:46
PROVIDERS: ADMIT Hospitalist; ATTEND Hospitalist
DX: I25.110 Atherosclerotic heart disease of native coronary artery with unstable angina pectoris (principal); I47.2 Ventricular tachycardia; D69.6 Thrombocytopenia, unspecified; E78.5 Hyperlipidemia, unspecified; F17.200 Nicotine dependence, unspecified, uncomplicated; F32.9 Major depressive disorder, single episode, unspecified; F41.9 Anxiety disorder, unspecified; G89.4 Chronic pain syndrome; I10 Essential (primary) hypertension; I25.2 Old myocardial infarction; I49.3 Ventricular premature depolarization; J43.9 Emphysema, unspecified; K21.9 Gastro-esophageal reflux disease without esophagitis; K58.9 Irritable bowel syndrome, unspecified; M06.9 Rheumatoid arthritis, unspecified; M19.90 Unspecified osteoarthritis, unspecified site; B19.20 Unspecified viral hepatitis C without hepatic coma; R26.9 Unspecified abnormalities of gait and mobility; R63.4 Abnormal weight loss; R94.39 Abnormal result of other cardiovascular function study; M54.16 Radiculopathy, lumbar region; M41.9 Scoliosis, unspecified; M48.00 Spinal stenosis, site unspecified; H91.90 Unspecified hearing loss, unspecified ear; H54.3 Unqualified visual loss, both eyes; Z95.5 Presence of coronary angioplasty implant and graft; Z91.19 Patient's noncompliance with other medical treatment and regimen; Z87.11 Personal history of peptic ulcer disease; Z87.01 Personal history of pneumonia (recurrent); Z86.13 Personal history of malaria; Z90.49 Acquired absence of other specified parts of digestive tract; Z88.5 Allergy status to narcotic agent; Z88.8 Allergy status to other drugs, medicaments and biological substances; Z82.5 Family history of asthma and other chronic lower respiratory diseases; Z82.49 Family history of ischemic heart disease and other diseases of the circulatory system
CPT/HCPCS: 36415; 70450; 71046; 71250; 72050; 72131; 74176; 78452; 80048; 80053; 80061; 80306; 81003; 82150; 82550; 82553; 83519; 83690; 83735; 83880; 84443; 84484; 85025; 85379; 85610; 85652; 85730; 86140; 86255; 93005; 93017; 93306; 93880; 96374; 99291

== ENCOUNTER → 2018-05-19 | Outpatient (CLI) | payer MEDICARE ==
[2018-05-19 15:55] LABS: Anion Gap 8 mmol/L; Blood Urea Nitrogen 17 mg/dL (9-20); Calcium 9.3 mg/dL (8.4-10.2); Carbon Dioxide 27 mmol/L (22-30); Chloride 106 mmol/L (98-107); Glucose 85 mg/dL (74-99); Potassium 4.7 mmol/L (3.5-5.1); Sodium 141 mmol/L (137-145)
[2018-05-19 16:00] LABS: Basophils # (A) 0.1 k/uL (0-0.2); Basophils % (A) 1 %; Eosinophils # (A) 0.2 k/uL (0-0.7); Eosinophils % (A) 5 %; HCT 45.9 % (39.0-53.0); HGB 15.1 gm/dL (13.0-17.5); Lymphocytes # (A) 1.4 k/uL (1.0-4.8); Lymphocytes % (A) 29 %; MCH 30.6 pg (25.0-35.0); MCHC 32.8 g/dL (31.0-37.0); MCV 93.2 fL (80.0-100.0); Mean Platelet Volume 7.3; Monocytes # (A) 0.3 k/uL (0-1.0); Monocytes % (A) 5 %; Neutrophils # (A) 2.8 k/uL (1.3-7.7); Neutrophils % (A) 59 %; Platelet Count 100 k/uL (150-450); RBC 4.92 m/uL (4.30-5.90); RDW 13.8 % (11.5-15.5); WBC 4.7 k/uL (3.8-10.6)
== END ==
LOC: LABMAIN 14:03
PROVIDERS: ATTEND Nurse Practitioner
DX: R07.9 Chest pain, unspecified (principal)
CPT/HCPCS: 36415; 80048; 85025

== ENCOUNTER → 2018-06-21 | Outpatient (CLI) | payer MEDICARE ==
--- NOTE | 2018-06-21 10:49 | CT ---
EXAMINATION TYPE: CT cervical spine wo con DATE OF EXAM: 06/21/2018 COMPARISON: HISTORY: Cervicalgia CT DLP: 340.[address] of the cervical spine was performed with bone and soft tissue window settings submitted . Coronal and sagittal reconstruction is obtained. C2-3: Within normal limits C3-4: Severe degenerative disc space narrowing. Moderate ventral and dorsal spondylosis. Posterior di sc bulge with encapsulating spur resulting in disc endplate complex. Effacement of the ventral thecal sac with mild central stenosis. Moderate bilateral foraminal encroachment secondary to degenerative change of the cervical apophyseal joints. C4-5:Severe degenerative disc space narrowing. Moderate ventral and dorsal spondylosis. Posterior dis c bulge with encapsulating spur resulting in disc endplate complex. Effacement of the ventral thecal sac with mild central stenosis. Moderate bilateral foraminal encroachment secondary to degenerative c hange of the cervical apophyseal joints. C5-6:Severe degenerative disc space narrowing. Moderate ventral and dorsal spondylosis. Posterior dis c bulge with encapsulating spur resulting in disc endplate complex. Effacement of the ventral thecal sac with mild central stenosis. Moderate bilateral foraminal encroachment secondary to degenerative c hange of the cervical apophyseal joints. C6-7: Severe disc desiccation with vacuum disc. Mild ventral and dorsal spondylosis. Mild posterior d isc endplate complex. No evidence for central stenosis. Severe bilateral foraminal encroachment. C7-T1: Within normal limits No evidence for fracture or subluxation. Alignment is anatomic. Soft tissues are within normal limits . Lung apices demonstrate emphysematous change. IMPRESSION: 1. Severe multilevel degenerative disc disease and spondylosis and disc endplate complex resulting in central stenosis and foraminal encroachment as outlined above.
== END | disposition home or self-care (01) ==
LOC: RADCTMAIN 10:00
PROVIDERS: ATTEND Nurse Practitioner Family
DX: M48.02 Spinal stenosis, cervical region (principal); M50.30 Other cervical disc degeneration, unspecified cervical region; M47.812 Spondylosis without myelopathy or radiculopathy, cervical region
CPT/HCPCS: 72125

== ENCOUNTER 2019-05-05 12:14 | Observation (INO) | payer MEDICARE ==
[2019-05-05 12:21] VITALS: RESP 18
[2019-05-05] MEDS ORDERED: MECLIZINE 25 MG TAB PO STA (13:21)
--- NOTE | 2019-05-05 13:26 | ED ---
General Adult HPI - General Chief complaint: Syncope Stated complaint: chest pain Time Seen by Provider: 05/05/19 12:20 Source: patient, RN notes reviewed Mode of arrival: wheelchair - History of Present Illness Initial comments: This is a 63-year-old male who presents emergency Department complaining of dizziness. Patient states he was in the garage working when he became very dizzy felt like he was given a fall over. Patient states he was walking like he was intoxicated. Patient states she's had nothing to drink. Patient states she eventually to sit down and sits still and that made him feel better. Patient states became very nauseated and vomited times one. Patient states currently he still is a little dizzy. Patient denies any headache patient denies any focal numbness or weakness. Patient states he has some tightness in his chest and has been feeling some palpitations and he thinks that her PVCs which she's had in the past. Patient denies any fever chills or cough. Patient denies abdominal pain patient denies nausea vomiting diarrhea. Patient states she's never had vertigo before. Patient states if he moves head sitting in bed it does appear to get slightly worse. Patient also states at one point he thought he was going to pass out. - Related Data Home Medications Medication Instructions Recorded Confirmed No Known Home Medications 05/05/19 05/05/19 Allergies Allergy/AdvReac Type Severity Reaction Status Date / Time haloperidol [From Haldol] Allergy Confusion Verified 05/05/19 13:31 ketorolac [From Toradol] Allergy Diarrhea Verified 05/05/19 13:31 naproxen [From Naprosyn] Allergy Anaphylaxis Verified 05/05/19 13:31 olanzapine [From Zyprexa] Allergy Confusion Verified 05/05/19 13:31 sertraline [From Zoloft] AdvReac Unknown Verified 05/05/19 13:31 tramadol AdvReac Unknown Verified 05/05/19 13:31 Review of Systems ROS Statement: Those systems with pertinent positive or pertinent negative responses have been documented in the HPI. ROS Other: All systems not noted in ROS Statement are negative. Past Medical History Past Medical History: Coronary Artery Disease (CAD), Chest Pain / Angina, COPD, GERD/Reflux, GI Bleed, Hyperlipidemia, Hypertension, Liver Disease, Myocardial Infarction ([place]), Osteoarthritis (OA), Pneumonia, Rheumatoid Arthritis (RA) Additional Past Medical History / Comment(s): CHI, SUBARACHNOID HEMORRHAGE-eyes are light sensitive at times, KY's x 7 per pt, chronic pain, lumbar radiculopath y, DDD, scoliosis, spinal stenosis, gastric/douodenal ulcers, lower GI bleed, hepatitis C with unsuccessful treatment, malaria, IBS, bilateral hand/fingers fractures, R index finger tip missing, hypoglycemia. Last Myocardial Infarction Date:: 2011? History of Any Multi-Drug Resistant Organisms: None Reported Past Surgical History: Back Surgery, Cholecystectomy, Heart Catheterization With Stent Additional Past Surgical History / Comment(s): PCI with stents (pt thinks he has 5 stents), PTCA in 2016, multiple back surgeries, EGD/colonoscopy. Past Anesthesia/Blood Transfusion Reactions: No Reported Reaction Additional Past Anesthesia/Blood Transfusion Reaction / Comment(s): (previously charted)11/17/14 Pt denies blood transfusion. Date of Last Stent Placement:: 2011? Past Psychological History: Anxiety, Depression Smoking Status: Current every day smoker Past Alcohol Use History: None Reported Past Drug Use History: Marijuana - Past Family History Mother Family Medical History: Hypertension Father Family Medical History: Coronary Artery Disease (CAD) General Exam - General Exam Comments Initial Comments: GENERAL: Patient is well-developed and well-nourished. Patient is nontoxic and well- hydrated and is in no acute distress. ENT: Neck is soft and supple. No significant lymphadenopathy is noted. Oropharynx is clear. Moist mucous membranes. Neck has full range of motion without eliciting any pain. EYES: The sclera were anicteric and conjunctiva were pink and moist. Extraocular movements were intact and pupils were equal round and reactive to light. Eyelids were unremarkable. PULMONARY: Unlabored respirations. Good breath sounds bilaterally. No audible rales rhonchi or wheezing was noted. CARDIOVASCULAR: There is a regular rate and rhythm without any murmurs gallops or rubs. ABDOMEN: Soft and nontender with normal bowel sounds. No palpable organomegaly was noted. There is no palpable pulsatile mass. SKIN: Skin is clear with no lesions or rashes and otherwise unremarkable. NEUROLOGIC: Patient is alert and oriented x3. Cranial nerves II through XII are grossly intact. Motor and sensory are also intact. Normal speech, volume and content. Symmetrical smile. Cerebellar testing finger to nose is normal. MUSCULOSKELETAL: Normal extremities with adequate strength and full range of motion. LYMPHATICS: No significant lymphadenopathy is noted PSYCHIATRIC: Normal psychiatric evaluation. Course Vital Signs 05/05/19 05/05/19 05/05/19 12:19 13:00 13:30 Temperature 97.4 F L Pulse Rate 59 L 56 L 56 L Respiratory 18 18 18 Rate Blood Pressure 130/81 128/69 124/77 O2 Sat by Pulse 99 97 98 Oximetry 05/05/19 05/05/19 14:00 14:30 Temperature Pulse Rate 54 L 48 L Respiratory 20 18 Rate Blood Pressure 124/84 130/74 O2 Sat by Pulse 100 99 Oximetry Medical Decision Making - Medical Decision Making EKG shows sinus bradycardia 56 bpm patient is also having multiple PVCs in a bigeminy pattern. Patient's KY interval is 174 QRS is 108 QT interval 448 QTC is 432. Patient's EKG showed T-wave inversions in leads II, III, and F aVF. I went back in the room to reevaluate the patient he continued to say he felt like he might pass out. I spoke with Dr. Rojas he agreed to admit the patient admitted the patient I wrote admitting orders - Lab Data Result diagrams: 05/05/19 13:31 05/05/19 13:31 Lab Results 05/05/19 05/05/19 05/05/19 Range/Units 13:31 13:31 13:31 WBC 5.7 (3.8-10.6) k/uL RBC 5.04 (4.30-5.90) m/uL Hgb 16.2 (13.0-17.5) gm/dL Hct 46.9 (39.0-53.0) % MCV 93.1 (80.0-100.0) fL MCH 32.2 (25.0-35.0) pg MCHC 34.5 (31.0-37.0) g/dL RDW 13.2 (11.5-15.5) % Plt Count 128 L (150-450) k/uL Neutrophils % 65 % Lymphocytes % 22 % Monocytes % 7 % Eosinophils % 4 % Basophils % 1 % Neutrophils # 3.7 (1.3-7.7) k/uL Lymphocytes # 1.3 (1.0-4.8) k/uL Monocytes # 0.4 (0-1.0) k/uL Eosinophils # 0.2 (0-0.7) k/uL Basophils # 0.1 (0-0.2) k/uL PT 11.3 (9.0-12.0) sec INR 1.1 (<1.2) APTT 26.2 (22.0-30.0) sec Sodium 139 (137-145) mmol/L Potassium 4.1 (3.5-5.1) mmol/L Chloride 106 (98-107) mmol/L Carbon Dioxide 21 L (22-30) mmol/L Anion Gap 12 mmol/L BUN 12 (9-20) mg/dL Creatinine 0.75 (0.66-1.25) mg/dL Est GFR (CKD-EPI)AfAm >90 (>60 ml/min/1.73 sqM) Est GFR (CKD-EPI)NonAf >90 (>60 ml/min/1.73 sqM) Glucose 95 (74-99) mg/dL POC Glucose (mg/dL) (75-99) mg/dL POC Glu Machine Bender ID Calcium 9.2 (8.4-10.2) mg/dL Magnesium 2.0 (1.6-2.3) mg/dL Total Bilirubin 1.0 (0.2-1.3) mg/dL AST 32 (17-59) U/L ALT 26 (21-72) U/L Alkaline Phosphatase 91 (38-126) U/L Troponin I (0.000-0.034) ng/mL Total Protein 8.1 (6.3-8.2) g/dL Albumin 4.4 (3.5-5.0) g/dL 05/05/19 05/05/19 Range/Units 13:31 13:34 WBC (3.8-10.6) k/uL RBC (4.30-5.90) m/uL Hgb (13.0-17.5) gm/dL Hct (39.0-53.0) % MCV (80.0-100.0) fL MCH (25.0-35.0) pg MCHC (31.0-37.0) g/dL RDW (11.5-15.5) % Plt Count (150-450) k/uL Neutrophils % % Lymphocytes % % Monocytes % % Eosinophils % % Basophils % % Neutrophils # (1.3-7.7) k/uL Lymphocytes # (1.0-4.8) k/uL Monocytes # (0-1.0) k/uL Eosinophils # (0-0.7) k/uL Basophils # (0-0.2) k/uL PT (9.0-12.0) sec INR (<1.2) APTT (22.0-30.0) sec Sodium (137-145) mmol/L Potassium (3.5-5.1) mmol/L Chloride (98-107) mmol/L Carbon Dioxide (22-30) mmol/L Anion Gap mmol/L BUN (9-20) mg/dL Creatinine (0.66-1.25) mg/dL Est GFR (CKD-EPI)AfAm (>60 ml/min/1.73 sqM) Est GFR (CKD-EPI)NonAf (>60 ml/min/1.73 sqM) Glucose (74-99) mg/dL POC Glucose (mg/dL) 96 (75-99) mg/dL POC Glu Machine Bender ID RobbieEvangelina Urenan Calcium (8.4-10.2) mg/dL Magnesium (1.6-2.3) mg/dL Total Bilirubin (0.2-1.3) mg/dL AST (17-59) U/L ALT (21-72) U/L Alkaline Phosphatase (38-126) U/L Troponin I <0.012 (0.000-0.034) ng/mL Total Protein (6.3-8.2) g/dL Albumin (3.5-5.0) g/dL Disposition Clinical Impression: Bigeminy, Near syncope, Chest tightness Disposition: ADMITTED IP TO THIS HOSP Referrals: Antoinette Lemon MD [Primary Care Provider] - 1-2 days Time of Disposition: 15:06
[2019-05-05 13:35] LABS: Glucose,Whole Blood 96 mg/dL (75-99)
[2019-05-05 13:43] LABS: Basophils # (A) 0.1 k/uL (0-0.2); Basophils % (A) 1 %; Eosinophils # (A) 0.2 k/uL (0-0.7); Eosinophils % (A) 4 %; HCT 46.9 % (39.0-53.0); HGB 16.2 gm/dL (13.0-17.5); Lymphocytes # (A) 1.3 k/uL (1.0-4.8); Lymphocytes % (A) 22 %; MCH 32.2 pg (25.0-35.0); MCHC 34.5 g/dL (31.0-37.0); MCV 93.1 fL (80.0-100.0); Mean Platelet Volume 7.1; Monocytes # (A) 0.4 k/uL (0-1.0); Monocytes % (A) 7 %; Neutrophils # (A) 3.7 k/uL (1.3-7.7); Neutrophils % (A) 65 %; Platelet Count 128 k/uL (150-450); RBC 5.04 m/uL (4.30-5.90); RDW 13.2 % (11.5-15.5); WBC 5.7 k/uL (3.8-10.6)
[2019-05-05 13:52] LABS: ALT 26 U/L (21-72); AST 32 U/L (17-59); African American GFR (CKD) >90 (>60 ml/min/1.73 sqM); Albumin 4.4 g/dL (3.5-5.0); Alkaline Phosphatase 91 U/L (38-126); Anion Gap 12 mmol/L; Blood Urea Nitrogen 12 mg/dL (9-20); Calcium 9.2 mg/dL (8.4-10.2); Carbon Dioxide 21 mmol/L (22-30); Chloride 106 mmol/L (98-107); Glucose 95 mg/dL (74-99); Potassium 4.1 mmol/L (3.5-5.1); Sodium 139 mmol/L (137-145); Total Protein 8.1 g/dL (6.3-8.2)
--- NOTE | 2019-05-05 13:58 | XR ---
EXAMINATION TYPE: XR chest 2V DATE OF EXAM: 05/05/2019 COMPARISON: 05/24/2018 TECHNIQUE: PA and lateral views submitted. HISTORY: Chest pain FINDINGS: The lungs are clear and there is no pneumothorax, pleural effusion, or focal pneumonia. Arthropathy of the shoulders. Hypertrophic and degenerative change of the spine. Hyperinflation. Coarsened inter stitium. IMPRESSION: 1. Correlate for COPD and pulmonary interstitial fibrosis.
--- NOTE | 2019-05-05 14:01 | CT ---
EXAMINATION TYPE: CT brain wo con DATE OF EXAM: 05/05/2019 COMPARISON: 05/16/2018 HISTORY: 63-year-old male confusion, dizziness, ataxia, altered mental status TECHNIQUE: Examination was done in axial plane without intravenous contrast. Coronal and sagittal r econstructions performed. CT DLP: 1096.4 mGycm Automated exposure control for dose reduction was used. FINDINGS: Calvarial beam hardening artifacts along the right greater than left middle cranial fossa. Within this limitation, there is no evidence of acute intracranial hemorrhage, acute ischemic change s, mass, mass-effect, or extra-axial fluid collection. There is no effacement of cerebral sulci or b gregg subarachnoid cisterns. There is no hydrocephalus. There is no midline shift. Finch-white matte r distinction is preserved. Mild atherosclerotic calcifications along the carotid siphons. Mild generalized cortical atrophy. Paranasal sinuses and mastoid air cells are well pneumatized. Orbits and globes appear intact. IMPRESSION: Mild generalized atrophy. Some calvarial artifact without definite acute intracranial abnormality see n.
[2019-05-05 14:04] LABS: INR 1.1 (<1.2); Partial Thromboplastin Time 26.2 sec (22.0-30.0); Prothrombin Time 11.3 sec (9.0-12.0)
[2019-05-05] MEDS ORDERED: NITROGLYCERIN SL TABS 0.4 MG TAB SUBLINGUAL PRN (15:07)
[2019-05-05] MEDS ORDERED: ASPIRIN 81 MG PO STA (15:07)
[2019-05-05] MEDS: NITROGLYCERIN OINT 1 INCH/GM PACKET TOPICAL SCH ×2 (17:22→23:01)
[2019-05-05] MEDS ORDERED: ACETAMINOPHEN TAB 325 MG TAB PO PRN (20:01)
[2019-05-06 02:37] LABS: Cholesterol 141 mg/dL (<200); HDL Cholesterol 40 mg/dL (40-60); LDL Cholesterol,Calculated 91 mg/dL (0-99); Triglycerides 49 mg/dL (<150)
[2019-05-06 04:59] VITALS: TEMP 97.7
[2019-05-06] MEDS: NITROGLYCERIN OINT 1 INCH/GM PACKET TOPICAL SCH (05:17)
[2019-05-06 07:43] VITALS: BP 124/82; PULSE 62
[2019-05-06] MEDS ORDERED: ASPIRIN 325 MG TAB PO SCH (09:00)
[2019-05-06] MEDS ORDERED: ASPIRIN 81 MG PO SCH (09:00)
[2019-05-06 09:25] LABS: Amphetamine Screen,Urine Not Detected (NotDetected); Barbiturate Screen,Urine Not Detected (NotDetected); Benzodiazepines Screen,Urine Not Detected (NotDetected); Cocaine Screen,Urine Not Detected (NotDetected); Methadone Screen, Urine Not Detected (NotDetected); Opiate Screen,Urine Not Detected (NotDetected); Oxycodone Screen, Urine Not Detected (NotDetected); Phencyclidine Screen,Urine Not Detected (NotDetected); Tricyclic Antidepressant,Urine Not Detected (NotDetected); Urn Cannabinoid Scrn Detected (NotDetected)
--- NOTE | 2019-05-06 10:46 | P.CRDCN ---
History of Present Illness History of present illness: This is a 63-year-old male past medical history significant for coronary artery disease status post angioplasty, COPD, gastroesophageal reflux disease, hypertension, dyslipidemia, chronic liver disease, chronic nicotine and marijuana dependence and a closed head injury. He underwent PCI and stenting of a totally occluded RCA in 2010, repeat catheterization in 2011 revealed a do minant RCA with widely patent stent, significant stenosis of the circumflex which was stented, LAD free of significant disease with an EF of 50%. He is seen and examined sitting in bed significant other at the bedside. He states he was helping a friend yesterday doing errands around his house when he started to feel acutely weak, nauseated and diaphoretic. He states he vomited one time then passed out. He does not quite remember the events that occurred thereafter. He did drive himself to the hospital but does not remember doing so. He is quite aggressive and yelling during my exam. He denies being told by anyone that witnessed the event that there was any seizure type activity. He did not urinate on himself however he states last night while sleeping he did urinate on himself. His significant other is at the bedside and she states he is not usually like this and she is concerned that something else is going on. He does have a history of intracranial bleeding and closed head injury in the past. CT brain on this admission was unremarkable. He adamently denies ever having had chest pain or shortness of breath. He is quite upset that we are seeing him as he said he never had any chest pain. EKG on admission reveals sinus bradycardia, left axis deviation, frequent PVC's in bigeminy pattern, and biphasic P-wave inferiorly. Chest xray reveals pulmonary fibrosis and COPD. Laboratory data reviewed, WBC 5.7, hemoglobin 16.2, platelets 128, sodium 139, potassium 4.1, creatinine 0.75, magnesium 2.0, cardiac enzymes negative 3, LDL 91. Drug sceen positive for marijuana. He currently takes no daily cardiac medications. Most recent echocardiogram obtained 05/2018 revealed impaired LV systolic function with EF 40-45%, basal inferior hypokinesia. Most recent stress test 05/2018 was a lexiscan stress test that revealed a predominantly fixed defect with mild reversibility, thought to be insignificant. ASSESSMENT Syncope, no orthostatic changes Altered mental status History of coronary artery disease s/p PCI in the setting of an acute [place] Ischemic cardiomyopathy, EF 40-45% Hypertension Dyslipidemia Chronic nicotine and marijuan dependence History of closed head injury History of non-compliance Thrombocytopenia PLAN Initiate on aspirin and atorvastatin. Hold on beta blockers for bradycardia. Obtain 2D echocardiogram and doppler study to assess cardiac structure and function. Check d-dimer. Thank you kindly for this consultation. Nurse Practitioner note has been reviewed, I agree with a documented findings and plan of care. Patient was seen and examined. Past Medical History Past Medical History: Coronary Artery Disease (CAD), Chest Pain / Angina, COPD, GERD/Reflux, GI Bleed, Hyperlipidemia, Hypertension, Liver Disease, Myocardial Infarction (AZ), Osteoarthritis (OA), Pneumonia, Rheumatoid Arthritis (RA) Additional Past Medical History / Comment(s): CHI, SUBARACHNOID HEMORRHAGE-eyes are light sensitive at times, AZ's x 7 per pt, chronic pain, lumbar radiculopathy, DDD, scoliosis, spinal stenosis, gastric/douodenal ulcers, lower GI bleed, hepatitis C with unsuccessful treatment, malaria, IBS, bilateral hand/fingers fractures, R index finger tip missing, hypoglycemia. Last Myocardial Infarction Date:: 2011? History of Any Multi-Drug Resistant Organisms: None Reported Past Surgical History: Back Surgery, Cholecystectomy, Heart Catheterization With Stent Additional Past Surgical History / Comment(s): PCI with stents (pt thinks he has 5 stents), PTCA in 2016, multiple back surgeries, EGD/colonoscopy. Past Anesthesia/Blood Transfusion Reactions: No Reported Reaction Additional Past Anesthesia/Blood Transfusion Reaction / Comment(s): (previously charted)11/17/14 Pt denies blood transfusion. Date of Last Stent Placement:: 2011? Past Psychological History: Anxiety, Depression Additional Psychological History / Comment(s): Pt lives with his spouse. He has used a walker or cane in the past but no longer due to their aggravating neck pain. He states some days he just cannot walk. His spouse helps him sometimes with his ADLs but she also has health issues. He drives a car. 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 He is a [place] . Smoking Status: Former smoker Past Alcohol Use History: None Reported Additional Past Alcohol Use History / Comment(s): Pt states he started smoking at age 10 yrs. He quit in the past after MIs but resumed smoking after his fi rst 's . He is not currently smoking per pt. (per ) pt used drink heavily quit long time ago. Past Drug Use History: Marijuana Additional Drug Use History / Comment(s): Pt states he occasionally smokes marijuana. He has not done any other street drugs since 1959. - Past Family History Mother Family Medical History: Hypertension Father Family Medical History: Coronary Artery Disease (CAD) Medications and Allergies Home Medications Medication Instructions Recorded Confirmed Type No Known Home Medications 05/05/19 05/05/19 History Allergies Allergy/AdvReac Type Severity Reaction Status Date / Time haloperidol [From Haldol] Allergy Confusion Verified 05/05/19 13:31 ketorolac [From Toradol] Allergy Diarrhea Verified 05/05/19 13:31 naproxen [From Naprosyn] Allergy Anaphylaxis Verified 05/05/19 13:31 olanzapine [From Zyprexa] Allergy Confusion Verified 05/05/19 13:31 sertraline [From Zoloft] AdvReac Unknown Verified 05/05/19 13:31 tramadol AdvReac Unknown Verified 05/05/19 13:31 Physical Exam Vitals: Vital Signs Temp Pulse Pulse Pulse Pulse Pulse Resp 05/06/19 07:30 97.7 F 62 18 05/06/19 04:00 97.7 F 44 L 18 05/05/19 23:39 18 05/05/19 23:32 52 L 18 05/05/19 20:00 18 05/05/19 19:27 47 L 18 05/05/19 16:15 97.5 F L 58 L 18 05/05/19 16:00 58 L 58 L 63 56 L 18 05/05/19 15:06 58 L 63 56 L 18 05/05/19 14:30 48 L 18 05/05/19 14:00 54 L 20 05/05/19 13:30 56 L 18 05/05/19 13:00 56 L 18 05/05/19 12:19 97.4 F L 59 L 18 BP BP BP BP BP Pulse Ox 05/06/19 07:30 124/82 97 05/06/19 04:00 119/74 97 05/05/19 23:39 05/05/19 23:32 115/67 97 05/05/19 20:00 05/05/19 19:27 115/67 98 05/05/19 16:15 107/64 98 05/05/19 16:00 05/05/19 15:06 124/77 124/68 130/71 05/05/19 14:30 130/74 99 05/05/19 14:00 124/84 100 05/05/19 13:30 124/77 98 05/05/19 13:00 128/69 97 05/05/19 12:19 130/81 99 Intake and Output 05/05/19 05/06/19 05/06/19 22:59 06:59 14:59 Output Total 300 Balance -300 Output: Urine 300 Other: Voiding Method Toilet Toilet Urinal Urinal Results 05/05/19 13:31 05/05/19 13:31 Cardiac Enzymes 05/05/19 05/05/19 05/05/19 Range/Units 13:31 13:31 20:28 AST 32 (17-59) U/L Troponin I <0.012 <0.012 (0.000-0.034) ng/mL 05/06/19 Range/Units 01:55 AST (17-59) U/L Troponin I <0.012 (0.000-0.034) ng/mL Coagulation 05/05/19 Range/Units 13:31 PT 11.3 (9.0-12.0) sec APTT 26.2 (22.0-30.0) sec Lipids 05/06/19 Range/Units 01:55 Triglycerides 49 (<150) mg/dL Cholesterol 141 (<200) mg/dL HDL Cholesterol 40 (40-60) mg/dL CBC 05/05/19 Range/Units 13:31 WBC 5.7 (3.8-10.6) k/uL RBC 5.04 (4.30-5.90) m/uL Hgb 16.2 (13.0-17.5) gm/dL Hct 46.9 (39.0-53.0) % Plt Count 128 L (150-450) k/uL Comprehensive Metabolic Panel 05/05/19 Range/Units 13:31 Sodium 139 (137-145) mmol/L Potassium 4.1 (3.5-5.1) mmol/L Chloride 106 (98-107) mmol/L Carbon Dioxide 21 L (22-30) mmol/L BUN 12 (9-20) mg/dL Creatinine 0.75 (0.66-1.25) mg/dL Glucose 95 (74-99) mg/dL Calcium 9.2 (8.4-10.2) mg/dL AST 32 (17-59) U/L ALT 26 (21-72) U/L Alkaline Phosphatase 91 (38-126) U/L Total Protein 8.1 (6.3-8.2) g/dL Albumin 4.4 (3.5-5.0) g/dL Current Medications Generic Name Dose Route Start Last Admin Trade Name Freq PRN Reason Stop Dose Admin Acetaminophen 650 mg 05/05/19 20:01 Tylenol Tab PO Q4HR PRN Fever and/ or Pain Aspirin 325 mg 05/06/19 09:00 Aspirin PO DAILY CANDE Nitroglycerin 0.4 mg 05/05/19 15:07 Nitrostat SUBLINGUAL Q5M PRN Chest Pain Nitroglycerin 1 inch 05/05/19 18:00 05/06/19 05:17 Nitro-Bid Oint TOPICAL Not Given Q6HR CANDE Intake and Output 05/05/19 05/06/19 05/06/19 22:59 06:59 14:59 Output Total 300 Balance -300 Output: Urine 300 Other: Voiding Method Toilet Toilet Urinal Urinal 05/05/19 13:31 05/05/19 13:31
--- NOTE | 2019-05-06 12:45 | ECHOF ---
Referral Reason:syncope MEASUREMENTS -------- HEIGHT: 180.3 cm WEIGHT: 54.4 kg BP: 124/82 RVIDd: 3.0 cm (< 3.3) IVSd: 1.1 cm (0.6 - 1.1) LVIDd: 4.1 cm (3.9 - 5.3) LVPWd: 1.2 cm (0.6 - 1.1) IVSs: 1.5 cm LVIDs: 2.5 cm LVPWs: 1.7 cm Ao Diam: 3.1 cm (2.0 - 3.7) AV Cusp: 2.3 cm (1.5 - 2.6) LA Diam: 2.3 cm (2.7 - 3.8) EPSS: 0.7 cm MV E Jasen: 0.54 m/s MV DecT: 206 ms MV A Jasen: 0.81 m/s MV E/A Ratio: 0.67 MV EF SLOPE: 65.23 mm/s (70 - 150) MV EXCURSION: 1.12 cm (> 18.000) FINDINGS -------- Sinus rhythm. TDS no apical views The left ventricular size is normal. There is mild concentric left ventricular hypertrophy. Overa ll left ventricular systolic function is normal with, an EF between 55 - 60 %. The right ventricle is normal in size. The left atrial size is normal. The right atrial size is normal. Interatrial and interventricular septum intact. The aortic valve was not well visualized. There is no evidence of aortic regurgitation. The mitral valve was not well visualized. No mitral regurgitation. No regurgitation noted The aortic root size is normal. The inferior vena cava is mildly dilated. There is no pericardial effusion. CONCLUSIONS -------- 1. Sinus rhythm. TDS, no apical views. 2. The left ventricular size is normal. 3. There is mild concentric left ventricular hypertrophy. 4. Overall left ventricular systolic function is normal with, an EF between 55 - 60 %. 5. The right ventricle is normal in size. 6. The left atrial size is normal. 7. The right atrial size is normal. 8. Interatrial and interventricular septum intact. 9. The aortic valve was not well visualized. 10. There is no evidence of aortic regurgitation. 11. The mitral valve was not well visualized. 12. No mitral regurgitation. 13. No regurgitation noted 14. The aortic root size is normal. 15. The inferior vena cava is mildly dilated. 16. There is no pericardial effusion. STORES CLERK: Heather Tuttle RDCS
--- NOTE | 2019-05-06 13:19 | P.HPIM ---
History of Present Illness patient left AGAINST MEDICAL ADVICE even if her before I got a chance to evaluate the patient Past Medical History Past Medical History: Coronary Artery Disease (CAD), Chest Pain / Angina, COPD, GERD/Reflux, GI Bleed, Hyperlipidemia, Hypertension, Liver Disease, Myocardial Infarction (AZ), Osteoarthritis (OA), Pneumonia, Rheumatoid Arthritis (RA) Additional Past Medical History / Comment(s): CHI, SUBARACHNOID HEMORRHAGE-eyes are light sensitive at times, AZ's x 7 per pt, chronic pain, lumbar radiculopathy, DDD, scoliosis, spinal stenosis, gastric/douodenal ulcers, lower GI bleed, hepatitis C with unsuccessful treatment, malaria, IBS, bilateral hand/fingers fractures, R index finger tip missing, hypoglycemia. Last Myocardial Infarction Date:: 2011? History of Any Multi-Drug Resistant Organisms: None Reported Past Surgical History: Back Surgery, Cholecystectomy, Heart Catheterization With Stent Additional Past Surgical History / Comment(s): PCI with stents (pt thinks he has 5 stents), PTCA in 2016, multiple back surgeries, EGD/colonoscopy. Past Anesthesia/Blood Transfusion Reactions: No Reported Reaction Additional Past Anesthesia/Blood Transfusion Reaction / Comment(s): (previously charted)11/17/14 Pt denies blood transfusion. Date of Last Stent Placement:: 2011? Past Psychological History: Anxiety, Depression Additional Psychological History / Comment(s): Pt lives with his spouse. He has used a walker or cane in the past but no longer due to their aggravating neck pain. He states some days he just cannot walk. His spouse helps him sometimes with his ADLs but she also has health issues. He drives a car. 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 He is a [place] . Smoking Status: Former smoker Past Alcohol Use History: None Reported Additional Past Alcohol Use History / Comment(s): Pt states he started smoking at age 10 yrs. He quit in the past after MIs but resumed smoking after his first 's . He is not currently smoking per pt. (per ) pt used drink heavily quit long time ago. Past Drug Use History: Marijuana Additional Drug Use History / Comment(s): Pt states he occasionally smokes marijuana. He has not done any other street drugs since 1959. - Past Family History Mother Family Medical History: Hypertension Father Family Medical History: Coronary Artery Disease (CAD) Medications and Allergies Home Medications Medication Instructions Recorded Confirmed Type No Known Home Medications 05/05/19 05/05/19 History Allergies Allergy/AdvReac Type Severity Reaction Status Date / Time haloperidol [From Haldol] Allergy Confusion Verified 05/05/19 13:31 ketorolac [From Toradol] Allergy Diarrhea Verified 05/05/19 13:31 naproxen [From Naprosyn] Allergy Anaphylaxis Verified 05/05/19 13:31 olanzapine [From Zyprexa] Allergy Confusion Verified 05/05/19 13:31 sertraline [From Zoloft] AdvReac Unknown Verified 05/05/19 13:31 tramadol AdvReac Unknown Verified 05/05/19 13:31 Physical Exam Vitals: Vital Signs Temp Pulse Pulse Pulse Pulse Pulse Resp 05/06/19 08:00 62 18 05/06/19 07:30 97.7 F 62 18 05/06/19 04:00 97.7 F 44 L 18 05/05/19 23:39 18 05/05/19 23:32 52 L 18 05/05/19 20:00 18 05/05/19 19:27 47 L 18 05/05/19 16:15 97.5 F L 58 L 18 05/05/19 16:00 58 L 58 L 63 56 L 18 05/05/19 15:06 58 L 63 56 L 18 05/05/19 14:30 48 L 18 05/05/19 14:00 54 L 20 05/05/19 13:30 56 L 18 BP BP BP BP BP Pulse Ox 05/06/19 08:00 05/06/19 07:30 124/82 97 05/06/19 04:00 119/74 97 05/05/19 23:39 05/05/19 23:32 115/67 97 05/05/19 20:00 05/05/19 19:27 115/67 98 05/05/19 16:15 107/64 98 05/05/19 16:00 05/05/19 15:06 124/77 124/68 130/71 05/05/19 14:30 130/74 99 05/05/19 14:00 124/84 100 05/05/19 13:30 124/77 98 Intake and Output 05/05/19 05/06/19 05/06/19 22:59 06:59 14:59 Output Total 300 Balance -300 Output: Urine 300 Other: Voiding Method Toilet Toilet Toilet Urinal Urinal Urinal Results CBC & Chem 7: 05/05/19 13:31 05/05/19 13:31 Labs: Abnormal Lab Results - Last 24 Hours (Table) 05/05/19 05/05/19 05/06/19 Range/Units 13:31 13:31 08:30 Plt Count 128 L (150-450) k/uL Carbon Dioxide 21 L (22-30) mmol/L U Marijuana (THC) Screen Detected H (NotDetected) Thrombosis Risk Factor Assmnt - Choose All That Apply Any of the Below Risk Factors Present?: No Other Risk Factors: Yes Each Risk Factor Represents 2 Points: Age 61-74 years Other congenital or acquired thrombophilia - If yes, enter type in comment: No Thrombosis Risk Factor Assessment Total Risk Factor Score: 2 Thrombosis Risk Factor Assessment Level: Low Risk
--- NOTE | 2019-05-06 13:22 | P.DS ---
Providers Date of admission: 05/05/19 15:21 Attending physician: Tobi Rojas Consults: 05/05/19 15:07 Consult Physician Urgent Consulting Provider: [facility] Consult Reason/Comments: Chest tightness, near syncope Do you want consulting provider notified?: Yes 05/06/19 08:09 Consult Physician Urgent Consulting Provider: Torri Fox Reason/Comments: altered mental status syncope Do you want consulting provider notified?: Yes Primary care physician: Antoinette Lemon Hospital Course: please refer to my HPI Plan - Discharge Summary Discharge Rx Participant: No New Discharge Prescriptions: No Action No Known Home Medications Discharge Medication List No Known Home Medications 05/05/19 [History] Follow up Appointment(s)/Referral(s): Antoinette Lemon MD [Primary Care Provider] - 1-2 days Discharge Disposition: Left Against Medical Advice
[2019-05-06] MEDS ORDERED: ATORVASTATIN 40 MG TAB PO SCH (21:00)
== END 2019-05-06 11:11 | disposition left against medical advice (07) ==
LOC: EC 12:14 → 1SOBS 15:21
PROVIDERS: ADMIT Internal Medicine; ATTEND Internal Medicine
DX: R55 Syncope and collapse (principal); R41.82 Altered mental status, unspecified; R53.1 Weakness; R07.89 Other chest pain; R11.2 Nausea with vomiting, unspecified; I25.10 Atherosclerotic heart disease of native coronary artery without angina pectoris; J44.9 Chronic obstructive pulmonary disease, unspecified; Z53.21 Procedure and treatment not carried out due to patient leaving prior to being seen by health care provider; K21.9 Gastro-esophageal reflux disease without esophagitis; I49.3 Ventricular premature depolarization; R00.8 Other abnormalities of heart beat; E78.5 Hyperlipidemia, unspecified; I10 Essential (primary) hypertension; I25.2 Old myocardial infarction; M19.90 Unspecified osteoarthritis, unspecified site; M06.9 Rheumatoid arthritis, unspecified; G89.4 Chronic pain syndrome; M54.16 Radiculopathy, lumbar region; B19.20 Unspecified viral hepatitis C without hepatic coma; K58.9 Irritable bowel syndrome, unspecified; F41.9 Anxiety disorder, unspecified; F32.9 Major depressive disorder, single episode, unspecified; M54.2 Cervicalgia; K76.9 Liver disease, unspecified; I25.5 Ischemic cardiomyopathy; F17.200 Nicotine dependence, unspecified, uncomplicated; F12.20 Cannabis dependence, uncomplicated; D69.6 Thrombocytopenia, unspecified; Z87.11 Personal history of peptic ulcer disease; Z87.828 Personal history of other (healed) physical injury and trauma; Z87.01 Personal history of pneumonia (recurrent); Z87.19 Personal history of other diseases of the digestive system; Z90.49 Acquired absence of other specified parts of digestive tract; Z95.5 Presence of coronary angioplasty implant and graft; Z91.19 Patient's noncompliance with other medical treatment and regimen; Z86.73 Personal history of transient ischemic attack (TIA), and cerebral infarction without residual deficits; Z88.6 Allergy status to analgesic agent; Z88.5 Allergy status to narcotic agent; Z88.8 Allergy status to other drugs, medicaments and biological substances; Z82.49 Family history of ischemic heart disease and other diseases of the circulatory system
CPT/HCPCS: 99285; 36415; 93005; 93306; 85379; 80061; 80053; 83735; 84484 ×2; 85025; 85610; 85730; 80306; 71046; 70450; G0378 ×2

== ENCOUNTER 2019-08-26 16:22 | Observation (INO) | payer MEDICARE ==
[2019-08-26] MEDS ORDERED: NITROGLYCERIN OINT 1 INCH/GM PACKET TOPICAL STA (16:39)
[2019-08-26] MEDS ORDERED: NITROGLYCERIN SL TABS 0.4 MG TAB SUBLINGUAL STA ×3 (16:39)
[2019-08-26] MEDS ORDERED: ASPIRIN 81 MG PO STA (16:39)
--- NOTE | 2019-08-26 16:43 | ED ---
General Adult HPI - General Stated complaint: Chest pain Time Seen by Provider: 08/26/19 16:26 Source: patient, family, RN notes reviewed Limitations: no limitations - History of Present Illness Initial comments: Patient is a 63-year-old male presenting to the emergency Department with complaints of chest discomfort. Onset of symptoms was almost 2 weeks ago. Symptoms are worse today. Discomfort feels like pressure. Patient does have associated dyspnea and nausea and diaphoresis. Patient feels more fatigued. Symptoms worsen with exertion. Patient does have history of similar symptoms previously associated with heart problems. Patient did take nitroglycerin with improvement of symptoms. Patient tried Pepto-Bismol without much improvement of symptoms. - Related Data Home Medications Medication Instructions Recorded Confirmed Aspirin 325 mg PO DAILY 08/26/19 08/26/19 Nitroglycerin Sl Tabs [Nitrostat] 0.4 mg SUBLINGUAL Q5M PRN 08/26/19 08/26/19 Allergies Allergy/AdvReac Type Severity Reaction Status Date / Time haloperidol [From Haldol] Allergy Confusion Verified 08/26/19 17:31 ketorolac [From Toradol] Allergy Diarrhea Verified 08/26/19 17:31 naproxen [From Naprosyn] Allergy Anaphylaxis Verified 08/26/19 17:31 olanzapine [From Zyprexa] Allergy Confusion Verified 08/26/19 17:31 sertraline [From Zoloft] AdvReac Unknown Verified 08/26/19 17:31 tramadol AdvReac Nausea & Verified 08/26/19 17:46 Vomiting & Diarrhea Review of Systems ROS Statement: Those systems with pertinent positive or pertinent negative responses have been documented in the HPI. ROS Other: All systems not noted in ROS Statement are negative. Constitutional: Denies: fever Eyes: Denies: eye pain ENT: Denies: ear pain Respiratory: Reports: as per HPI Cardiovascular: Reports: as per HPI, chest pain Endocrine: Reports: fatigue Gastrointestinal: Reports: nausea. Denies: abdominal pain Genitourinary: Denies: urgency Musculoskeletal: Denies: arthralgia Skin: Denies: rash Neurological: Denies: headache Past Medical History Past Medical History: Coronary Artery Disease (CAD), Chest Pain / Angina, COPD, GERD/Reflux, GI Bleed, Hyperlipidemia, Hypertension, Liver Disease, Myocardial Infarction (UT), Osteoarthritis (OA), Pneumonia, Rheumatoid Arthritis (RA) Additional Past Medical History / Comment(s): CHI, SUBARACHNOID HEMORRHAGE-eyes are light sensitive at times, UT's x 7 per pt, chronic pain, lumbar radiculopathy, DDD, scoliosis, spinal stenosis, gastric/douodenal ulcers, lower GI bleed, hepatitis C with unsuccessful treatment, malaria, IBS, bilateral hand/fingers fractures, R index finger tip missing, hypoglycemia. Last Myocardial Infarction Date:: 2011? History of Any Multi-Drug Resistant Organisms: None Reported Past Surgical History: Back Surgery, Cholecystectomy, Heart Catheterization With Stent Additional Past Surgical History / Comment(s): PCI with stents (pt thinks he has 5 stents), PTCA in 2016, multiple back surgeries, EGD/colonoscopy. Past Anesthesia/Blood Transfusion Reactions: No Reported Reaction Additional Past Anesthesia/Blood Transfusion Reaction / Comment(s): (previously charted)11/17/14 Pt denies blood transfusion. Date of Last Stent Placement:: 2011? Past Psychological History: Anxiety, Depression Additional Psychological History / Comment(s): Pt lives with his spouse. He has used a walker or cane in the past but no longer due to their aggravating neck pain. He states some days he just cannot walk. His spouse helps him sometimes with his ADLs but she also has health issues. He drives a car. 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 He is a [place] . Smoking Status: Former smoker Past Alcohol Use History: None Reported Additional Past Alcohol Use History / Comment(s): Pt states he started smoking at age 10 yrs. He quit in the past after MIs but resumed smoking after his first 's . He is not currently smoking per pt. (per ) pt used drink heavily quit long time ago. Past Drug Use History: Marijuana Additional Drug Use History / Comment(s): Pt states he occasionally smokes marijuana. He has not done any other street drugs since 1959. - Past Family History Mother Family Medical History: Hypertension Father Family Medical History: Coronary Artery Disease (CAD) General Exam Limitations: no limitations General appearance: alert, in no apparent distress Head exam: Present: normocephalic Eye exam: Present: normal appearance Neck exam: Present: normal inspection Respiratory exam: Present: normal lung sounds bilaterally. Absent: chest wall tenderness Cardiovascular Exam: Present: regular rate, normal rhythm Expanded Peripheral pulses: 2+: Radial (R), Radial (L), Femoral (R), Femoral (L) GI/Abdominal exam: Present: soft. Absent: distended, tenderness Extremities exam: Present: normal inspection. 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 MN 162. QRS 102. QT 408. QTC 424. Left axis. Inferior Q waves with T wave inversion. No acute ST change. Medical Decision Making - Medical Decision Making Patient reevaluated and only partial relief with nitroglycerin. Patient and family updated on results and plan. Patient received more improvement with her feet. Case was discussed with Dr. Palma, who will admit covering for Dr. Dewitt. - Lab Data Result diagrams: 08/26/19 17:00 08/26/19 17:00 Lab Results 08/26/19 08/26/19 08/26/19 Range/Units 17:00 17:00 17:00 WBC 3.0 L (3.8-10.6) k/uL RBC 5.15 (4.30-5.90) m/uL Hgb 15.9 (13.0-17.5) gm/dL Hct 48.4 (39.0-53.0) % MCV 94.1 (80.0-100.0) fL MCH 31.0 (25.0-35.0) pg MCHC 32.9 (31.0-37.0) g/dL RDW 13.8 (11.5-15.5) % Plt Count 94 L (150-450) k/uL Neutrophils % 54 % Lymphocytes % 34 % Monocytes % 4 % Eosinophils % 5 % Basophils % 2 % Neutrophils # 1.6 (1.3-7.7) k/uL Lymphocytes # 1.0 (1.0-4.8) k/uL Monocytes # 0.1 (0-1.0) k/uL Eosinophils # 0.2 (0-0.7) k/uL Basophils # 0.1 (0-0.2) k/uL Manual Slide Review Performed PT 11.5 (9.0-12.0) sec INR 1.1 (<1.2) APTT 24.7 (22.0-30.0) sec D-Dimer 0.50 (<0.60) mg/L FEU Sodium 138 (137-145) mmol/L Potassium 4.2 (3.5-5.1) mmol/L Chloride 110 H (98-107) mmol/L Carbon Dioxide 21 L (22-30) mmol/L Anion Gap 7 mmol/L BUN 14 (9-20) mg/dL Creatinine 0.73 (0.66-1.25) mg/dL Est GFR (CKD-EPI)AfAm >90 (>60 ml/min/1.73 sqM) Est GFR (CKD-EPI)NonAf >90 (>60 ml/min/1.73 sqM) Glucose 85 (74-99) mg/dL Calcium 8.8 (8.4-10.2) mg/dL Magnesium 1.7 (1.6-2.3) mg/dL Total Bilirubin 0.8 (0.2-1.3) mg/dL AST 118 H (17-59) U/L ALT 150 H (4-49) U/L Alkaline Phosphatase 71 (38-126) U/L Troponin I (0.000-0.034) ng/mL NT-Pro-B Natriuret Pep pg/mL Total Protein 7.4 (6.3-8.2) g/dL Albumin 3.8 (3.5-5.0) g/dL Amylase 49 (30-110) U/L Lipase 44 (23-300) U/L 08/26/19 08/26/19 Range/Units 17:00 Unknown WBC (3.8-10.6) k/uL RBC (4.30-5.90) m/uL Hgb (13.0-17.5) gm/dL Hct (39.0-53.0) % MCV (80.0-100.0) fL MCH (25.0-35.0) pg MCHC (31.0-37.0) g/dL RDW (11.5-15.5) % Plt Count (150-450) k/uL Neutrophils % % Lymphocytes % % Monocytes % % Eosinophils % % Basophils % % Neutrophils # (1.3-7.7) k/uL Lymphocytes # (1.0-4.8) k/uL Monocytes # (0-1.0) k/uL Eosinophils # (0-0.7) k/uL Basophils # (0-0.2) k/uL Manual Slide Review PT (9.0-12.0) sec INR (<1.2) APTT (22.0-30.0) sec D-Dimer (<0.60) mg/L FEU Sodium (137-145) mmol/L Potassium (3.5-5.1) mmol/L Chloride (98-107) mmol/L Carbon Dioxide (22-30) mmol/L Anion Gap mmol/L BUN (9-20) mg/dL Creatinine (0.66-1.25) mg/dL Est GFR (CKD-EPI)AfAm (>60 ml/min/1.73 sqM) Est GFR (CKD-EPI)NonAf (>60 ml/min/1.73 sqM) Glucose (74-99) mg/dL Calcium (8.4-10.2) mg/dL Magnesium (1.6-2.3) mg/dL Total Bilirubin (0.2-1.3) mg/dL AST (17-59) U/L ALT (4-49) U/L Alkaline Phosphatase (38-126) U/L Troponin I <0.012 (0.000-0.034) ng/mL NT-Pro-B Natriuret Pep 139 pg/mL Total Protein (6.3-8.2) g/dL Albumin (3.5-5.0) g/dL Amylase (30-110) U/L Lipase (23-300) U/L - Radiology Data Radiology results: image reviewed (Chest x-ray shows no acute process) Disposition Clinical Impression: Chest pain Disposition: ADMITTED IP TO THIS HOSP Is patient prescribed a controlled substance at d/c from ED?: No Referrals: Antoinette Lemon MD [Primary Care Provider] - 1-2 days Decision Time: 18:00
[2019-08-26 17:09] LABS: Basophils # (A) 0.1 k/uL (0-0.2); Basophils % (A) 2 %; Eosinophils # (A) 0.2 k/uL (0-0.7); Eosinophils % (A) 5 %; HCT 48.4 % (39.0-53.0); HGB 15.9 gm/dL (13.0-17.5); Lymphocytes % (A) 34 %; MCHC 32.9 g/dL (31.0-37.0); MCV 94.1 fL (80.0-100.0); Mean Platelet Volume 7.8; Monocytes # (A) 0.1 k/uL (0-1.0); Monocytes % (A) 4 %; Neutrophils # (A) 1.6 k/uL (1.3-7.7); Neutrophils % (A) 54 %; RBC 5.15 m/uL (4.30-5.90); RDW 13.8 % (11.5-15.5)
[2019-08-26 17:24] LABS: Platelet Count 94 k/uL (150-450)
[2019-08-26 17:28] LABS: D-Dimer 0.5 mg/L FEU (<0.60); INR 1.1 (<1.2); Partial Thromboplastin Time 24.7 sec (22.0-30.0); Prothrombin Time 11.5 sec (9.0-12.0)
[2019-08-26 17:29] LABS: ALT 150 U/L (4-49); AST 118 U/L (17-59); African American GFR (CKD) >90 (>60 ml/min/1.73 sqM); Albumin 3.8 g/dL (3.5-5.0); Alkaline Phosphatase 71 U/L (38-126); Amylase 49 U/L (30-110); Anion Gap 7 mmol/L; Blood Urea Nitrogen 14 mg/dL (9-20); Calcium 8.8 mg/dL (8.4-10.2); Carbon Dioxide 21 mmol/L (22-30); Chloride 110 mmol/L (98-107); Glucose 85 mg/dL (74-99); Magnesium 1.7 mg/dL (1.6-2.3); Non-African American GFR(CKD) >90 (>60 ml/min/1.73 sqM); Potassium 4.2 mmol/L (3.5-5.1); Sodium 138 mmol/L (137-145); Total Bilirubin 0.8 mg/dL (0.2-1.3); Total Protein 7.4 g/dL (6.3-8.2)
--- NOTE | 2019-08-26 17:39 | XR ---
EXAMINATION TYPE: XR chest 2V DATE OF EXAM: 08/26/2019 COMPARISON: 05/05/2019 HISTORY: Chest pain TECHNIQUE: 2 views FINDINGS: Heart is normal. Lungs are clear of infiltrate. There is no heart failure. There are no hil ar masses. Costophrenic angles are clear. IMPRESSION: No active cardiopulmonary disease. Normal heart. No change.
[2019-08-26] MEDS ORDERED: MORPHINE SULFATE 4 MG/ML SYRINGE IVP STA (17:51)
[2019-08-26] MEDS ORDERED: NITROGLYCERIN SL TABS 0.4 MG TAB SUBLINGUAL PRN (18:34)
[2019-08-26 21:11] VITALS: RESP 18
[2019-08-26] MEDS: NITROGLYCERIN OINT 1 INCH/GM PACKET TOPICAL SCH (23:22)
[2019-08-27] MEDS: NITROGLYCERIN OINT 1 INCH/GM PACKET TOPICAL SCH (03:51)
[2019-08-27 05:38] LABS: Cholesterol 131 mg/dL (<200); HDL Cholesterol 41 mg/dL (40-60); LDL Cholesterol,Calculated 80 mg/dL (0-99); Triglycerides 52 mg/dL (<150)
[2019-08-27 07:03] VITALS: BP 91/48; PULSE 66; TEMP 97.7
[2019-08-27] MEDS ORDERED: ASPIRIN 325 MG TAB PO SCH (09:00)
[2019-08-27] MEDS ORDERED: ATORVASTATIN 80 MG TAB PO SCH (09:15)
--- NOTE | 2019-08-27 11:32 | P.HPIM ---
History of Present Illness please consider this as combined H&P and discharge summary I came to see the patient and he left signing AMA per staff before I had a chance to meet him and talk to him. Please refer to chart for more details Past Medical History Past Medical History: Coronary Artery Disease (CAD), Chest Pain / Angina, COPD, GERD/Reflux, GI Bleed, Hyperlipidemia, Hypertension, Liver Disease, Myocardial Infarction (PR), Osteoarthritis (OA), Pneumonia, Rheumatoid Arthritis (RA) Additional Past Medical History / Comment(s): CHI, SUBARACHNOID HEMORRHAGE-eyes are light sensitive at times, PR's x 7 per pt, chronic pain, lumbar radiculopathy, DDD, scoliosis, spinal stenosis, gastric/douodenal ulcers, lower GI bleed, hepatitis C with unsuccessful treatment, malaria, IBS, bilateral hand/fingers fractures, R index finger tip missing, hypoglycemia. Last Myocardial Infarction Date:: 2011? History of Any Multi-Drug Resistant Organisms: None Reported Past Surgical History: Back Surgery, Cholecystectomy, Heart Catheterization With Stent Additional Past Surgical History / Comment(s): PCI with stents (pt thinks he has 5 stents), PTCA in 2015, multiple back surgeries, EGD/colonoscopy. Past Anesthesia/Blood Transfusion Reactions: No Reported Reaction Additional Past Anesthesia/Blood Transfusion Reaction / Comment(s): (previously charted)11/17/14 Pt denies blood transfusion. Date of Last Stent Placement:: 2011? Past Psychological History: Anxiety, Depression Additional Psychological History / Comment(s): Pt lives with his spouse. He has used a walker or cane in the past but no longer due to their aggravating neck pain. He states some days he just cannot walk. His spouse helps him sometimes with his ADLs but she also has health issues. He drives a car. 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 He is a [place] . Smoking Status: Former smoker Past Alcohol Use History: None Reported Additional Past Alcohol Use History / Comment(s): Pt states he started smoking at age 10 yrs. He quit in the past after MIs but resumed smoking after his first 's . He is not currently smoking per pt. (per ) pt used drink heavily quit long time ago. Past Drug Use History: Marijuana Additional Drug Use History / Comment(s): Pt states he occasionally smokes marijuana. He has not done any other street drugs since 1959. - Past Family History Mother Family Medical History: Hypertension Father Family Medical History: Coronary Artery Disease (CAD) Medications and Allergies Home Medications Medication Instructions Recorded Confirmed Type Aspirin 325 mg PO DAILY 08/26/19 08/26/19 History Nitroglycerin Sl Tabs [Nitrostat] 0.4 mg SUBLINGUAL Q5M PRN 08/26/19 08/26/19 History Allergies Allergy/AdvReac Type Severity Reaction Status Date / Time haloperidol [From Haldol] Allergy Confusion Verified 08/26/19 17:31 ketorolac [From Toradol] Allergy Diarrhea Verified 08/26/19 17:31 naproxen [From Naprosyn] Allergy Anaphylaxis Verified 08/26/19 17:31 olanzapine [From Zyprexa] Allergy Confusion Verified 08/26/19 17:31 sertraline [From Zoloft] AdvReac Unknown Verified 08/26/19 17:31 tramadol AdvReac Nausea & Verified 08/26/19 17:46 Vomiting & Diarrhea Physical Exam Vitals: Vital Signs Temp Pulse Pulse Pulse Resp BP BP 08/27/19 07:00 97.7 F 66 18 91/48 08/27/19 03:54 64 18 08/27/19 03:13 97.6 F 71 18 08/27/19 00:00 97.8 F 72 18 08/26/19 23:59 60 18 08/26/19 21:44 60 18 08/26/19 20:50 98.4 F 68 18 08/26/19 20:42 98.3 F 68 21 106/75 08/26/19 19:30 98.4 F 61 17 112/78 08/26/19 17:50 60 16 103/70 08/26/19 17:40 60 17 102/75 08/26/19 17:32 60 16 08/26/19 17:15 82 08/26/19 16:37 98.1 F 64 18 98/68 BP Pulse Ox 08/27/19 07:00 96 08/27/19 03:54 08/27/19 03:13 99/49 98 08/27/19 00:00 97/62 97 08/26/19 23:59 08/26/19 21:44 08/26/19 20:50 119/69 97 08/26/19 20:42 96 08/26/19 19:30 98 08/26/19 17:50 98 08/26/19 17:40 98 08/26/19 17:32 99 08/26/19 17:15 08/26/19 16:37 96 Intake and Output 08/26/19 08/27/19 08/27/19 22:59 06:59 14:59 Other: Voiding Method Toilet Urinal # Voids 1 1 Weight 61.235 kg Results CBC & Chem 7: 08/26/19 17:00 08/26/19 17:00 Labs: Abnormal Lab Results - Last 24 Hours (Table) 08/26/19 08/26/19 Range/Units 17:00 17:00 WBC 3.0 L (3.8-10.6) k/uL Plt Count 94 L (150-450) k/uL Chloride 110 H (98-107) mmol/L Carbon Dioxide 21 L (22-30) mmol/L AST 118 H (17-59) U/L ALT 150 H (4-49) U/L Thrombosis Risk Factor Assmnt - Choose All That Apply Any of the Below Risk Factors Present?: Yes Each Factor Represents 1 point: Acute PR Other Risk Factors: Yes Each Risk Factor Represents 2 Points: Age 61-74 years Other congenital or acquired thrombophilia - If yes, enter type in comment: No Thrombosis Risk Factor Assessment Total Risk Factor Score: 3 Thrombosis Risk Factor Assessment Level: Moderate Risk
--- NOTE | 2019-08-27 13:23 | P.CRDCN ---
History of Present Illness History of present illness: HISTORY OF PRESENTING ILLNESS This is a 63-year-old male past medical history significant for coronary artery disease status post angioplasty to the RCA and circumflex, COPD, gastroesophageal reflux disease, hypertension, dyslipidemia, chronic liver disease, former alcohol abuse, chronic nicotine and marijuana dependence and history of a closed head injury in the past. 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 We have been asked to see in consultation for chest pain. He is seen and examined laying flat in bed in no acute distress. He becomes quite aggressive initially stating he is in pain all over from head to toe his back, his arms, his legs, his chest, his neck and his head. He states the only thing that relieves his pain is marijuana. He denies shortness of breath, dizziness, nausea, vomiting or palpitations. He states his full body pain has been consta nt for the previous 2 days. DIAGNOSTICS EKG reveals sinus mechanism., Left axis deviation. T-wave inversions inferiorly, platelet T waves in the lateral leads and poor R-wave progression. Chest xray negative for an acute cardiopulmonary process. Laboratory reviewed, WBC 3, hemoglobin 15.9, platelets 94, d-dimer 0.5, sodium 138, potassium 4.2, creatinine 0.73, magnesium 1.7, cardiac enzymes negative 3, BNP 139, LDL 80, AST 118 and ALT 150. Current cardiac medications include aspirin 325 mg. Most recent stress test performed in 2017 revealed a large fixed defect involving the inferior and inferoapical myocardium, a small area of reversibility in the apical inferior myocardium. Most recent echocardiogram obtained May 2019 reveals preserved LV systolic function with ejection fraction 55-60%. REVIEW OF SYSTEMS At the time of my exam: CONSTITUTIONAL: Denies fever or chills. CARDIOVASCULAR: Denies chest pain, shortness of breath, orthopnea, PND or palpitations. RESPIRATORY: Denies cough. GASTROINTESTINAL: Denies abdominal pain, diarrhea, constipation, nausea or vomiting. MUSCULOSKELETAL: Complains of pain all over. NEUROLOGIC: Denies numbness, tingling or weakness. ENDOCRINE: Denies fatigue, weight change, polydipsia or polyurina. GENITOURINARY: Denies burning, hematuria or urgency with micturation. HEMATOLOGIC: Denies history of anemia or bleeding. PHYSICAL EXAMINATION Blood pressure 91/48 heart rate 66 afebrile and maintaining oxygen saturation on room air. CONSTITUTIONAL: No apparent distress. Frail. HEENT: Head is normocephalic. Pupils are equal, round. Sclerae anicteric. Mucous membranes of the mouth are moist. No JVD. No carotid bruit. CHEST EXAMINATION: Lungs are clear to auscultation. No chest wall tenderness is noted on palpation or with deep breathing. HEART EXAMINATION: Regular rate and rhythm. S1, S2 heard. No murmurs, gallops or rub. ABDOMEN: Soft, nontender. Positive bowel sounds. EXTREMITIES: 2+ peripheral pulses, no lower extremity edema and no calf tenderness. NEUROLOGIC EXAMINATION: Patient is awake, alert and oriented x3. ASSESSMENT Chest pain, atypical for angina. An acute coronary event has been ruled out. History of coronary artery disease COPD Hypertension Dyslipidemia Chronic liver disease Former alcohol abuse Chronic nicotine and marijuana dependence History of noncompliance PLAN An acute coronary event has been ruled out. Pain is atypical for angina, however given his significant past history we discussed optimizing his medical regimen and consider stress testing. He states if we don't given him pain medication he is not doing any testing. Thank you kindly for this consultation. Nurse Practitioner note has been reviewed, I agree with a documented findings and plan of care. Patient was seen and examined. Past Medical History Past Medical History: Coronary Artery Disease (CAD), Chest Pain / Angina, COPD, GERD/Reflux, GI Bleed, Hyperlipidemia, Hypertension, Liver Disease, Myocardial Infarction (AR), Osteoarthritis (OA), Pneumonia, Rheumatoid Arthritis (RA) Additional Past Medical History / Comment(s): CHI, SUBARACHNOID HEMORRHAGE-eyes are light sensitive at times, AR's x 7 per pt, chronic pain, lumbar radiculopathy, DDD, scoliosis, spinal stenosis, gastric/douodenal ulcers, lower GI bleed, hepatitis C with unsuccessful treatment, malaria, IBS, bilateral hand/fingers fractures, R index finger tip missing, hypoglycemia. Last Myocardial Infarction Date:: 2011? History of Any Multi-Drug Resistant Organisms: None Reported Past Surgical History: Back Surgery, Cholecystectomy, Heart Catheterization With Stent Additional Past Surgical History / Comment(s): PCI with stents (pt thinks he has 5 stents), PTCA in 2016, multiple back surgeries, EGD/colonoscopy. Past Anesthesia/Blood Transfusion Reactions: No Reported Reaction Additional Past Anesthesia/Blood Transfusion Reaction / Comment(s): (previously charted)11/17/14 Pt denies blood transfusion. Date of Last Stent Placement:: 2011? Past Psychological History: Anxiety, Depression Additional Psychological History / Comment(s): Pt lives with his spouse. He has used a walker or cane in the past but no longer due to their aggravating neck pain. He states some days he just cannot walk. His spouse helps him sometimes with his ADLs but she also has health issues. He drives a car. 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 He is a [place] . Smoking Status: Former smoker Past Alcohol Use History: None Reported Additional Past Alcohol Use History / Comment(s): Pt states he started smoking at age 10 yrs. He quit in the past after MIs but resumed smoking after his fir st 's . He is not currently smoking per pt. (per ) pt used drink heavily quit long time ago. Past Drug Use History: Marijuana Additional Drug Use History / Comment(s): Pt states he occasionally smokes marijuana. He has not done any other street drugs since 1959. - Past Family History Mother Family Medical History: Hypertension Father Family Medical History: Coronary Artery Disease (CAD) Medications and Allergies Home Medications Medication Instructions Recorded Confirmed Type Aspirin 325 mg PO DAILY 08/26/19 08/26/19 History Nitroglycerin Sl Tabs [Nitrostat] 0.4 mg SUBLINGUAL Q5M PRN 08/26/19 08/26/19 History Allergies Allergy/AdvReac Type Severity Reaction Status Date / Time haloperidol [From Haldol] Allergy Confusion Verified 08/26/19 17:31 ketorolac [From Toradol] Allergy Diarrhea Verified 08/26/19 17:31 naproxen [From Naprosyn] Allergy Anaphylaxis Verified 08/26/19 17:31 olanzapine [From Zyprexa] Allergy Confusion Verified 08/26/19 17:31 sertraline [From Zoloft] AdvReac Unknown Verified 08/26/19 17:31 tramadol AdvReac Nausea & Verified 08/26/19 17:46 Vomiting & Diarrhea Physical Exam Vitals: Vital Signs Temp Pulse Pulse Pulse Resp BP BP 08/27/19 07:00 97.7 F 66 18 91/48 08/27/19 03:54 64 18 08/27/19 03:13 97.6 F 71 18 08/27/19 00:00 97.8 F 72 18 08/26/19 23:59 60 18 08/26/19 21:44 60 18 08/26/19 20:50 98.4 F 68 18 08/26/19 20:42 98.3 F 68 21 106/75 08/26/19 19:30 98.4 F 61 17 112/78 08/26/19 17:50 60 16 103/70 08/26/19 17:40 60 17 102/75 08/26/19 17:32 60 16 08/26/19 17:15 82 08/26/19 16:37 98.1 F 64 18 98/68 BP Pulse Ox 08/27/19 07:00 96 08/27/19 03:54 08/27/19 03:13 99/49 98 08/27/19 00:00 97/62 97 08/26/19 23:59 08/26/19 21:44 08/26/19 20:50 119/69 97 08/26/19 20:42 96 08/26/19 19:30 98 08/26/19 17:50 98 08/26/19 17:40 98 08/26/19 17:32 99 08/26/19 17:15 08/26/19 16:37 96 Intake and Output 08/26/19 08/27/19 08/27/19 22:59 06:59 14:59 Other: Voiding Method Toilet Urinal # Voids 1 1 Weight 61.235 kg Results 08/26/19 17:00 08/26/19 17:00 Cardiac Enzymes 08/26/19 08/26/19 08/26/19 Range/Units 17:00 17:00 22:34 AST 118 H (17-59) U/L Troponin I <0.012 <0.012 (0.000-0.034) ng/mL 08/27/19 Range/Units 05:04 AST (17-59) U/L Troponin I 0.012 (0.000-0.034) ng/mL Coagulation 08/26/19 Range/Units 17:00 PT 11.5 (9.0-12.0) sec APTT 24.7 (22.0-30.0) sec Lipids 08/27/19 Range/Units 05:04 Triglycerides 52 (<150) mg/dL Cholesterol 131 (<200) mg/dL HDL Cholesterol 41 (40-60) mg/dL CBC 08/26/19 Range/Units 17:00 WBC 3.0 L (3.8-10.6) k/uL RBC 5.15 (4.30-5.90) m/uL Hgb 15.9 (13.0-17.5) gm/dL Hct 48.4 (39.0-53.0) % Plt Count 94 L (150-450) k/uL Comprehensive Metabolic Panel 08/26/19 Range/Units 17:00 Sodium 138 (137-145) mmol/L Potassium 4.2 (3.5-5.1) mmol/L Chloride 110 H (98-107) mmol/L Carbon Dioxide 21 L (22-30) mmol/L BUN 14 (9-20) mg/dL Creatinine 0.73 (0.66-1.25) mg/dL Glucose 85 (74-99) mg/dL Calcium 8.8 (8.4-10.2) mg/dL AST 118 H (17-59) U/L ALT 150 H (4-49) U/L Alkaline Phosphatase 71 (38-126) U/L Total Protein 7.4 (6.3-8.2) g/dL Albumin 3.8 (3.5-5.0) g/dL Intake and Output 08/26/19 08/27/19 08/27/19 22:59 06:59 14:59 Other: Voiding Method Toilet Urinal # Voids 1 1 Weight 61.235 kg 08/26/19 17:00 08/26/19 17:00
[2019-08-28] MEDS ORDERED: ASPIRIN 81 MG PO SCH (09:00)
== END 2019-08-27 11:15 | disposition left against medical advice (07) ==
LOC: EC 16:22 → 1SOBS 18:34
PROVIDERS: ADMIT Internal Medicine; ATTEND Internal Medicine
DX: R07.89 Other chest pain (principal); I25.10 Atherosclerotic heart disease of native coronary artery without angina pectoris; J44.9 Chronic obstructive pulmonary disease, unspecified; I10 Essential (primary) hypertension; I25.2 Old myocardial infarction; K21.9 Gastro-esophageal reflux disease without esophagitis; E78.5 Hyperlipidemia, unspecified; M19.90 Unspecified osteoarthritis, unspecified site; M06.9 Rheumatoid arthritis, unspecified; M51.16 Intervertebral disc disorders with radiculopathy, lumbar region; M48.061 Spinal stenosis, lumbar region without neurogenic claudication; F41.9 Anxiety disorder, unspecified; F32.9 Major depressive disorder, single episode, unspecified; K58.9 Irritable bowel syndrome, unspecified; Z53.29 Procedure and treatment not carried out because of patient's decision for other reasons; M41.9 Scoliosis, unspecified; B19.20 Unspecified viral hepatitis C without hepatic coma; Z87.11 Personal history of peptic ulcer disease; Z79.82 Long term (current) use of aspirin; Z79.899 Other long term (current) drug therapy; Z87.891 Personal history of nicotine dependence; Z88.6 Allergy status to analgesic agent; Z88.8 Allergy status to other drugs, medicaments and biological substances; Z82.49 Family history of ischemic heart disease and other diseases of the circulatory system; Z95.5 Presence of coronary angioplasty implant and graft; Z90.49 Acquired absence of other specified parts of digestive tract
CPT/HCPCS: 93005 ×2; 96374; 99285; 36415; 85379; 83880; 80061; 80053; 82150; 83690; 83735; 84484 ×2; 85025; 85610; 85730; 71046; G0378 ×2; J2270

== ENCOUNTER 2019-11-24 11:11 | Emergency (ER) | payer MEDICARE ==
[2019-11-24 11:25] VITALS: BP 132/77; RESP 18; TEMP 98
[2019-11-24] MEDS ORDERED: ASPIRIN 81 MG PO STA (11:39)
[2019-11-24] MEDS ORDERED: NITROGLYCERIN OINT 1 INCH/GM PACKET TOPICAL STA (11:39)
--- NOTE | 2019-11-24 11:45 | ED ---
General Adult HPI - General Chief complaint: Chest Pain Stated complaint: chest pain Time Seen by Provider: 11/24/19 11:25 Source: patient, RN notes reviewed, old records reviewed Mode of arrival: ambulatory Limitations: no limitations - History of Present Illness Initial comments: This is a 64-year-old male who presents emergency department with past medical history significant for COPD and previous heart attack and stents. Patient comes in today because he started to experience chest pain associated with difficulty breathing nausea and shortness of breath. Patient states he also was sweating profusely. Patient states all those symptoms except for the chest pain dissipated about 10 minutes but the chest pain continues. Patient states it zamora s remind him of his previous heart problems. Patient states he smokes marijuana quite a bit but has quit cigarettes years ago. Patient denies any headache patient denies lightheadedness or dizziness. Patient denies numbness or weakness. Patient denies any abdominal pain. Patient denies any swelling to legs or calf tenderness. - Related Data Home Medications Medication Instructions Recorded Confirmed Aspirin 325 mg PO DAILY 08/26/19 08/26/19 Nitroglycerin Sl Tabs [Nitrostat] 0.4 mg SUBLINGUAL Q5M PRN 08/26/19 08/26/19 Allergies Allergy/AdvReac Type Severity Reaction Status Date / Time haloperidol [From Haldol] Allergy Confusion Verified 11/24/19 11:22 ketorolac [From Toradol] Allergy Diarrhea Verified 11/24/19 11:22 naproxen [From Naprosyn] Allergy Anaphylaxis Verified 11/24/19 11:22 olanzapine [From Zyprexa] Allergy Confusion Verified 11/24/19 11:22 sertraline [From Zoloft] AdvReac Unknown Verified 11/24/19 11:22 tramadol AdvReac Nausea & Verified 11/24/19 11:22 Vomiting & Diarrhea Review of Systems ROS Statement: Those systems with pertinent positive or pertinent negative responses have been documented in the HPI. ROS Other: All systems not noted in ROS Statement are negative. Past Medical History Past Medical History: Coronary Artery Disease (CAD), Chest Pain / Angina, COPD, GERD/Reflux, GI Bleed, Hyperlipidemia, Hypertension, Liver Disease, Myocardial Infarction ([place]), Osteoarthritis (OA), Pneumonia, Rheumatoid Arthritis (RA) Additional Past Medical History / Comment(s): CHI, SUBARACHNOID HEMORRHAGE-eyes are light sensitive at times, PR's x 7 per pt, chronic pain, lumbar radiculopathy, DDD, scoliosis, spinal stenosis, gastric/douodenal ulcers, lower GI bleed, hepatitis C with unsuccessful treatment, malaria, IBS, bilateral hand/ fingers fractures, R index finger tip missing, hypoglycemia. Last Myocardial Infarction Date:: 2011? History of Any Multi-Drug Resistant Organisms: None Reported Past Surgical History: Back Surgery, Cholecystectomy, Heart Catheterization With Stent Additional Past Surgical History / Comment(s): PCI with stents (pt thinks he has 5 stents), PTCA in 2016, multiple back surgeries, EGD/colonoscopy. Past Anesthesia/Blood Transfusion Reactions: No Reported Reaction Additional Past Anesthesia/Blood Transfusion Reaction / Comment(s): (previously charted)11/17/14 Pt denies blood transfusion. Date of Last Stent Placement:: 2011? Past Psychological History: Anxiety, Depression Smoking Status: Former smoker Past Alcohol Use History: None Reported Past Drug Use History: Marijuana - Past Family History Mother Family Medical History: Hypertension Father Family Medical History: Coronary Artery Disease (CAD) General Exam - General Exam Comments Initial Comments: GENERAL: Patient is well-developed and well-nourished. Patient is nontoxic and well- hydrated and is in mild distress. ENT: Neck is soft and supple. No significant lymphadenopathy is noted. Oropharynx is clear. Moist mucous membranes. Neck has full range of motion without eliciting any pain. EYES: The sclera were anicteric and conjunctiva were pink and moist. Extraocular movements were intact and pupils were equal round and reactive to light. Eyelids were unremarkable. PULMONARY: Unlabored respirations. Good breath sounds bilaterally. No audible rales rhonchi or wheezing was noted. CARDIOVASCULAR: There is a regular rate and rhythm without any murmurs gallops or rubs. ABDOMEN: Soft and nontender with normal bowel sounds. SKIN: Skin is clear with no lesions or rashes and otherwise unremarkable. NEUROLOGIC: Patient is alert and oriented x3. Cranial nerves II through XII are grossly intact. Motor and sensory are also intact. Normal speech, volume and content. Symmetrical smile. MUSCULOSKELETAL: Normal extremities with adequate strength and full range of motion. LYMPHATICS: No significant lymphadenopathy is noted PSYCHIATRIC: Normal psychiatric evaluation. Limitations: no limitations Course Vital Signs 04/20/20 04/20/20 04/20/20 11:23 11:43 12:54 Temperature 98 F Pulse Rate 64 56 L Pulse Rate [ 58 L Size Maker ] Respiratory 18 18 Rate Blood Pressure 132/77 132/77 O2 Sat by Pulse 100 98 Oximetry Medical Decision Making - Medical Decision Making EKG shows sinus rhythm with occasional PVC at 62 bpm NM interval 166 dresses 102 QT interval is 436 QTC is 442. Patient's EKG shows no acute changes on EKG. Patient has no ST segment elevation or depression. Chest x-ray shows question later in the right base however patient has no symptoms consistent with pneumonia. I spoke with Dr. Lazo agreed to admit the patient admitted the patient wrote admitting orders. I started the patient heparin I continue the heparin as for Nitropaste on the floor as well and I consult cardiology. - Lab Data Result diagrams: 11/24/19 11:20 11/24/19 11:20 Lab Results 11/24/19 11/24/19 11/24/19 Range/Units 11:20 11:20 11:20 WBC 6.7 (3.8-10.6) k/uL RBC 5.46 (4.30-5.90) m/uL Hgb 17.5 (13.0-17.5) gm/dL Hct 52.1 (39.0-53.0) % MCV 95.4 (80.0-100.0) fL MCH 32.0 (25.0-35.0) pg MCHC 33.6 (31.0-37.0) g/dL RDW 13.6 (11.5-15.5) % Plt Count 136 L (150-450) k/uL Neutrophils % 55 % Lymphocytes % 31 % Monocytes % 8 % Eosinophils % 4 % Basophils % 1 % Neutrophils # 3.7 (1.3-7.7) k/uL Lymphocytes # 2.1 (1.0-4.8) k/uL Monocytes # 0.5 (0-1.0) k/uL Eosinophils # 0.2 (0-0.7) k/uL Basophils # 0.1 (0-0.2) k/uL PT 11.0 (9.0-12.0) sec INR 1.1 (<1.2) APTT 23.5 (22.0-30.0) sec Sodium 138 (137-145) mmol/L Potassium 4.2 (3.5-5.1) mmol/L Chloride 104 (98-107) mmol/L Carbon Dioxide 23 (22-30) mmol/L Anion Gap 11 mmol/L BUN 15 (9-20) mg/dL Creatinine 0.91 (0.66-1.25) mg/dL Est GFR (CKD-EPI)AfAm >90 (>60 ml/min/1.73 sqM) Est GFR (CKD-EPI)NonAf 88 (>60 ml/min/1.73 sqM) Glucose 94 (74-99) mg/dL Calcium 9.9 (8.4-10.2) mg/dL Magnesium 2.1 (1.6-2.3) mg/dL Total Bilirubin 0.9 (0.2-1.3) mg/dL AST 61 H (17-59) U/L ALT 70 H (4-49) U/L Alkaline Phosphatase 85 (38-126) U/L Troponin I (0.000-0.034) ng/mL Total Protein 8.5 H (6.3-8.2) g/dL Albumin 4.7 (3.5-5.0) g/dL 11/24/19 Range/Units 11:20 WBC (3.8-10.6) k/uL RBC (4.30-5.90) m/uL Hgb (13.0-17.5) gm/dL Hct (39.0-53.0) % MCV (80.0-100.0) fL MCH (25.0-35.0) pg MCHC (31.0-37.0) g/dL RDW (11.5-15.5) % Plt Count (150-450) k/uL Neutrophils % % Lymphocytes % % Monocytes % % Eosinophils % % Basophils % % Neutrophils # (1.3-7.7) k/uL Lymphocytes # (1.0-4.8) k/uL Monocytes # (0-1.0) k/uL Eosinophils # (0-0.7) k/uL Basophils # (0-0.2) k/uL PT (9.0-12.0) sec INR (<1.2) APTT (22.0-30.0) sec Sodium (137-145) mmol/L Potassium (3.5-5.1) mmol/L Chloride (98-107) mmol/L Carbon Dioxide (22-30) mmol/L Anion Gap mmol/L BUN (9-20) mg/dL Creatinine (0.66-1.25) mg/dL Est GFR (CKD-EPI)AfAm (>60 ml/min/1.73 sqM) Est GFR (CKD-EPI)NonAf (>60 ml/min/1.73 sqM) Glucose (74-99) mg/dL Calcium (8.4-10.2) mg/dL Magnesium (1.6-2.3) mg/dL Total Bilirubin (0.2-1.3) mg/dL AST (17-59) U/L ALT (4-49) U/L Alkaline Phosphatase (38-126) U/L Troponin I <0.012 (0.000-0.034) ng/mL Total Protein (6.3-8.2) g/dL Albumin (3.5-5.0) g/dL Disposition Clinical Impression: Unstable angina Disposition: ADMITTED IP TO THIS HOSP Condition: Good Referrals: Ej Kruger MD [Primary Care Provider] - 1-2 days Time of Disposition: 13:03
[2019-11-24 12:05] LABS: Basophils # (A) 0.1 k/uL (0-0.2); Basophils % (A) 1 %; Eosinophils # (A) 0.2 k/uL (0-0.7); Eosinophils % (A) 4 %; HCT 52.1 % (39.0-53.0); HGB 17.5 gm/dL (13.0-17.5); Lymphocytes # (A) 2.1 k/uL (1.0-4.8); Lymphocytes % (A) 31 %; MCHC 33.6 g/dL (31.0-37.0); MCV 95.4 fL (80.0-100.0); Mean Platelet Volume 7.5; Monocytes # (A) 0.5 k/uL (0-1.0); Monocytes % (A) 8 %; Neutrophils # (A) 3.7 k/uL (1.3-7.7); Neutrophils % (A) 55 %; Platelet Count 136 k/uL (150-450); RBC 5.46 m/uL (4.30-5.90); RDW 13.6 % (11.5-15.5); WBC 6.7 k/uL (3.8-10.6)
[2019-11-24 12:09] LABS: ALT 70 U/L (4-49); AST 61 U/L (17-59); African American GFR (CKD) >90 (>60 ml/min/1.73 sqM); Albumin 4.7 g/dL (3.5-5.0); Alkaline Phosphatase 85 U/L (38-126); Anion Gap 11 mmol/L; Blood Urea Nitrogen 15 mg/dL (9-20); Calcium 9.9 mg/dL (8.4-10.2); Carbon Dioxide 23 mmol/L (22-30); Chloride 104 mmol/L (98-107); Glucose 94 mg/dL (74-99); Magnesium 2.1 mg/dL (1.6-2.3); Non-African American GFR(CKD) 88 (>60 ml/min/1.73 sqM); Potassium 4.2 mmol/L (3.5-5.1); Sodium 138 mmol/L (137-145); Total Bilirubin 0.9 mg/dL (0.2-1.3); Total Protein 8.5 g/dL (6.3-8.2)
--- NOTE | 2019-11-24 12:10 | XR ---
EXAMINATION TYPE: XR chest 2V DATE OF EXAM: 11/24/2019 COMPARISON: 08/26/2019 HISTORY: Shortness of breath TECHNIQUE: Frontal and lateral views of the chest are obtained. FINDINGS: Scattered senescent parenchymal changes noted. Hyperinflation compatible with COPD. Increased hazy density right medial lung base and left infrahilar region may reflect developing infil trate. Correlate clinically. Heart size is stable. Mediastinal structures are stable and grossly unremarkable. No evidence for hilar prominence. Degenerative changes dorsal spine. IMPRESSION: 1. Increased hazy density right medial lung base and left infrahilar region may reflect developing in filtrate. Correlate clinically.
[2019-11-24 12:17] LABS: INR 1.1 (<1.2); Partial Thromboplastin Time 23.5 sec (22.0-30.0)
[2019-11-24 12:55] VITALS: PULSE 56
[2019-11-24] MEDS ORDERED: HEPARIN SODIUM,PORCINE 5,000 UNIT/ML 1 ML VIAL IV ONE (12:59)
[2019-11-24] MEDS ORDERED: HEPARIN SOD,PORK IN 0.45% NACL 25,000 UNIT in 0.45% NACL 1 250ML.BAG IV SCH (13:00)
[2019-11-24] MEDS ORDERED: NITROGLYCERIN SL TABS 0.4 MG TAB SUBLINGUAL PRN (13:03)
[2019-11-24] MEDS ORDERED: NITROGLYCERIN OINT 1 INCH/GM PACKET TOPICAL SCH (18:00)
[2019-11-25] MEDS ORDERED: ASPIRIN 325 MG TAB PO SCH (09:00)
== END 2019-11-24 13:49 | disposition left against medical advice (07) ==
LOC: EC 11:11 → UNDOADMOB 13:03 → 3SCARD 13:03 → EC 13:49
DX: I25.119 Atherosclerotic heart disease of native coronary artery with unspecified angina pectoris (principal); I10 Essential (primary) hypertension; I25.2 Old myocardial infarction; Z79.82 Long term (current) use of aspirin; Z88.5 Allergy status to narcotic agent; Z88.8 Allergy status to other drugs, medicaments and biological substances; Z95.5 Presence of coronary angioplasty implant and graft; Z87.891 Personal history of nicotine dependence
CPT/HCPCS: 36415; 71046; 80053; 83735; 84484; 85025; 85610; 85730; 93005; 99285

== ENCOUNTER 2019-12-25 21:27 | Emergency (ER) | payer MEDICARE ==
--- NOTE | 2019-12-25 21:58 | ED ---
General Adult HPI - General Chief complaint: Extremity Injury, Upper Stated complaint: R Arm injury Time Seen by Provider: 12/25/19 21:30 Source: patient, RN notes reviewed, old records reviewed Mode of arrival: ambulatory Limitations: no limitations - History of Present Illness Initial comments: This is a 64-year-old man who states this morning he was working on a car and the axle fell on his forearm he said the differential is what hit his forearm. Patient states this happened about 12 hours ago. Patient states she has full range of motion of his wrist his elbow on his fingers but mid forearm is causing quite a bit of pain. Patient denies any numbness. Patient denies any discoloration. Patient states both anterior and posterior forearm are painful at this time. Patient states he did keep working the rest of the day. - Related Data Home Medications Medication Instructions Recorded Confirmed Aspirin 325 mg PO DAILY 08/26/19 08/26/19 Nitroglycerin Sl Tabs [Nitrostat] 0.4 mg SUBLINGUAL Q5M PRN 08/26/19 08/26/19 Allergies Allergy/AdvReac Type Severity Reaction Status Date / Time haloperidol [From Haldol] Allergy Confusion Verified 12/25/19 21:32 ketorolac [From Toradol] Allergy Diarrhea Verified 12/25/19 21:32 naproxen [From Naprosyn] Allergy Anaphylaxis Verified 12/25/19 21:32 olanzapine [From Zyprexa] Allergy Confusion Verified 12/25/19 21:32 sertraline [From Zoloft] AdvReac Unknown Verified 12/25/19 21:32 tramadol AdvReac Nausea & Verified 12/25/19 21:32 Vomiting & Diarrhea Review of Systems ROS Statement: Those systems with pertinent positive or pertinent negative responses have been documented in the HPI. ROS Other: All systems not noted in ROS Statement are negative. Past Medical History Past Medical History: Coronary Artery Disease (CAD), Chest Pain / Angina, COPD, GERD/Reflux, GI Bleed, Hyperlipidemia, Hypertension, Liver Disease, Myocardial Infarction ([place]), Osteoarthritis (OA), Pneumonia, Rheumatoid Arthritis (RA) Additional Past Medical History / Comment(s): CHI, SUBARACHNOID HEMORRHAGE-eyes are light sensitive at times, WA's x 7 per pt, chronic pain, lumbar radiculopath y, DDD, scoliosis, spinal stenosis, gastric/douodenal ulcers, lower GI bleed, hepatitis C with unsuccessful treatment, malaria, IBS, bilateral hand/fingers fractures, R index finger tip missing, hypoglycemia. Last Myocardial Infarction Date:: 2011? History of Any Multi-Drug Resistant Organisms: None Reported Past Surgical History: Back Surgery, Cholecystectomy, Heart Catheterization With Stent Additional Past Surgical History / Comment(s): PCI with stents (pt thinks he has 5 stents), PTCA in 2016, multiple back surgeries, EGD/colonoscopy. Past Anesthesia/Blood Transfusion Reactions: No Reported Reaction Additional Past Anesthesia/Blood Transfusion Reaction / Comment(s): (previously charted)11/17/14 Pt denies blood transfusion. Date of Last Stent Placement:: 2011? Past Psychological History: Anxiety, Depression Smoking Status: Former smoker Past Alcohol Use History: None Reported Past Drug Use History: Marijuana - Past Family History Mother Family Medical History: Hypertension Father Family Medical History: Coronary Artery Disease (CAD) General Exam - General Exam Comments Initial Comments: GENERAL Patient is well-developed and well-nourished. Patient is in mild distress. EYES Patient's pupils are equal and round. Extraocular motion is intact SKIN Ecchymosis on the anterior aspect of his right forearm NEURO The patient is alert and oriented 3 PYSCH Patient has normal interpersonal interactions. MUSCULOSKELETAL Patient has full range of motion of his elbow wrist patient does have quite a bit of tenderness in the large area of ecchymosis on the anterior surface and a little bit on the posterior aspect of the forearm on the radial side. Patient is full range of motion of his hand and fingers. Patient has good cap refill of all his fingers. Patient has no decreased sensation. Limitations: no limitations Course Vital Signs 12/25/19 21:31 Temperature 97.9 F Pulse Rate 71 Respiratory 20 Rate Blood Pressure 166/81 O2 Sat by Pulse 99 Oximetry Medical Decision Making - Medical Decision Making X-ray of the forearm shows no fracture. I will begin the room to reevaluate the patient he was sleeping comfortably even before he got the half of Dilaudid. Disposition Clinical Impression: Contusion, forearm Disposition: HOME SELF-CARE Condition: Good Instructions (If sedation given, give patient instructions): Contusion in Adults (ED) Additional Instructions: Patient needs return to emergency department for any new or worsening symptoms. Patient should come back if there is increase in pain decrease in sensation any color changes or swelling. Is patient prescribed a controlled substance at d/c from ED?: No Referrals: Ej Kruger MD [Primary Care Provider] - 1-2 days Time of Disposition: 23:02
--- NOTE | 2019-12-25 22:18 | XR ---
EXAMINATION TYPE: XR forearm RT DATE OF EXAM: 12/25/2019 COMPARISON: NONE HISTORY: Forearm pain TECHNIQUE: 2 views FINDINGS: There is a degenerative cyst in the lunate. Elbow joint appears intact. There is small spur on the olecranon process of the ulna. IMPRESSION: Minor degenerative changes. No fracture seen. No convincing sign of inflammatory arthriti s.
[2019-12-25] MEDS ORDERED: ACET/COD 300 MG/30 MG STARTER PACK 6 TAB BTL PO STA (23:03)
[2019-12-25] MEDS: HYDROmorphone 1 MG/ML 1 ML SYRINGE IM STA ×2 (23:05→23:08)
[2019-12-25 23:20] VITALS: BP 148/83; PULSE 68; RESP 18; TEMP 98
== END 2019-12-25 23:20 | disposition home or self-care (01) ==
LOC: EC 21:27
DX: S50.11XA Contusion of right forearm, initial encounter (principal); R06.00 Dyspnea, unspecified; I25.119 Atherosclerotic heart disease of native coronary artery with unspecified angina pectoris; I10 Essential (primary) hypertension; I25.2 Old myocardial infarction; M06.9 Rheumatoid arthritis, unspecified; Z87.891 Personal history of nicotine dependence; Z79.82 Long term (current) use of aspirin; Z88.8 Allergy status to other drugs, medicaments and biological substances; Z88.6 Allergy status to analgesic agent; Z88.5 Allergy status to narcotic agent; Z95.5 Presence of coronary angioplasty implant and graft; Z79.899 Other long term (current) drug therapy; W20.8XXA Other cause of strike by thrown, projected or falling object, initial encounter; Y93.89 Activity, other specified; Y92.009 Unspecified place in unspecified non-institutional (private) residence as the place of occurrence of the external cause
CPT/HCPCS: 73090; 99284; 96372; J1170

== ENCOUNTER 2020-08-18 23:49 | Emergency (ER) | payer MEDICARE ==
[2020-08-18 23:56] VITALS: TEMP 98.6
[2020-08-19] MEDS ORDERED: MORPHINE SULFATE 4 MG/ML SYRINGE IV STA ×2 (00:08→01:11)
--- NOTE | 2020-08-19 00:17 | ED ---
Chest Pain HPI - General Chief Complaint: Chest Pain Stated Complaint: Chest Pain Time Seen by Provider: 08/18/20 23:51 Source: patient, EMS Mode of arrival: EMS Limitations: no limitations - History of Present Illness Initial Comments: This patient is 64-year-old man who presents for evaluation of pain that is all across his chest. He noticed it days ago and states he is now on his third day of pain. The pain is worse with palpation and with certain positions. The pain is worse when he is breathing heavier. MD Complaint: chest pain Onset/Timin -: days(s) Onset: during rest Pain Location: left chest, right chest Pain Radiation: none Severity: severe Quality: aching Consistency: constant Improves With: nothing Worsens With: inspiration, palpation, movement Treatments Prior to Arrival: none - Related Data Home Medications Medication Instructions Recorded Confirmed Aspirin 325 mg PO DAILY 08/26/19 08/26/19 Nitroglycerin Sl Tabs [Nitrostat] 0.4 mg SUBLINGUAL Q5M PRN 08/26/19 08/26/19 Allergies Allergy/AdvReac Type Severity Reaction Status Date / Time haloperidol [From Haldol] Allergy Confusion Verified 08/18/20 23:56 ketorolac [From Toradol] Allergy Diarrhea Verified 08/18/20 23:56 naproxen [From Naprosyn] Allergy Anaphylaxis Verified 08/18/20 23:56 olanzapine [From Zyprexa] Allergy Confusion Verified 08/18/20 23:56 sertraline [From Zoloft] AdvReac Unknown Verified 08/18/20 23:56 tramadol AdvReac Nausea & Verified 08/18/20 23:56 Vomiting & Diarrhea Review of Systems ROS Statement: Those systems with pertinent positive or pertinent negative responses have been documented in the HPI. ROS Other: All systems not noted in ROS Statement are negative. Constitutional: Denies: fever, chills Respiratory: Denies: cough, dyspnea, wheezes Cardiovascular: Reports: chest pain, dyspnea on exertion. Denies: palpitations, orthopnea, edema, syncope Gastrointestinal: Denies: abdominal pain, vomiting, diarrhea, melena, hematochezia Genitourinary: Denies: dysuria, hematuria Musculoskeletal: Denies: back pain Skin: Denies: rash Neurological: Denies: headache, weakness, numbness EKG Findings - EKG Results: EKG: interpreted by ERMD, sinus rhythm - NC, Pacemaker, Normal: Myocardial infarction: inferior NC (old age indeterminate) Past Medical History Past Medical History: Coronary Artery Disease (CAD), Chest Pain / Angina, COPD, GERD/Reflux, GI Bleed, Hyperlipidemia, Hypertension, Liver Disease, Myocardial Infarction ([place]), Osteoarthritis (OA), Pneumonia, Rheumatoid Arthritis (RA) Additional Past Medical History / Comment(s): CHI, SUBARACHNOID HEMORRHAGE-eyes are light sensitive at times, [place]'s x 7 per pt, chronic pain, lumbar radiculopathy, DDD, scoliosis, spinal stenosis, gastric/douodenal ulcers, lower GI bleed, hepatitis C with unsuccessful treatment, malaria, IBS, bilateral hand/fingers fractures, R index finger tip missing, hypoglycemia. Last Myocardial Infarction Date:: 2011? History of Any Multi-Drug Resistant Organisms: None Reported Past Surgical History: Back Surgery, Cholecystectomy, Heart Catheterization With Stent Additional Past Surgical History / Comment(s): PCI with stents (pt thinks he has 5 stents), PTCA in 2015, multiple back surgeries, EGD/colonoscopy. Past Anesthesia/Blood Transfusion Reactions: No Reported Reaction Additional Past Anesthesia/Blood Transfusion Reaction / Comment(s): (previously charted)11/17/14 Pt denies blood transfusion. Date of Last Stent Placement:: 2011? Past Psychological History: Anxiety, Depression Past Alcohol Use History: None Reported Past Drug Use History: Marijuana - Past Family History Mother Family Medical History: Hypertension Father Family Medical History: Coronary Artery Disease (CAD) General Exam Limitations: no limitations General appearance: alert, in no apparent distress Head exam: Present: atraumatic, normocephalic Eye exam: Present: normal appearance. Absent: scleral icterus, conjunctival injection Neck exam: Present: normal inspection Respiratory exam: Present: normal lung sounds bilaterally, chest wall tenderness. Absent: respiratory distress, wheezes, rales, rhonchi, stridor Cardiovascular Exam: Present: regular rate, normal rhythm, normal heart sounds. Absent: systolic murmur, diastolic murmur, rubs, gallop GI/Abdominal exam: Present: soft. Absent: distended, tenderness, guarding, rebound, rigid, mass Extremities exam: Present: normal inspection, normal capillary refill. Absent: pedal edema, calf tenderness Back exam: Present: normal inspection. Absent: CVA tenderness (R), CVA tender ness (L) Neurological exam: Present: alert Skin exam: Present: warm, dry, intact, normal color. Absent: rash Course Vital Signs 08/18/20 08/19/20 08/19/20 23:51 00:30 01:00 Temperature 98.6 F Pulse Rate 74 67 64 Respiratory 16 20 20 Rate Blood Pressure 122/81 125/74 124/77 O2 Sat by Pulse 99 97 98 Oximetry Disposition Clinical Impression: Atypical chest pain Disposition: HOME SELF-CARE Condition: Good Instructions (If sedation given, give patient instructions): Chest Pain (ED) Is patient prescribed a controlled substance at d/c from ED?: No Referrals: Ej Kruger MD [REFERRING] - 1-2 days Melinda Koroma MD [STAFF PHYSICIAN] - 1-2 days
[2020-08-19 00:26] LABS: ALT 44 U/L (4-49); AST 46 U/L (17-59); African American GFR (CKD) >90 (>60 ml/min/1.73 sqM); Albumin 3.5 g/dL (3.5-5.0); Alkaline Phosphatase 77 U/L (38-126); Amylase 51 U/L (30-110); Anion Gap 5 mmol/L; Blood Urea Nitrogen 14 mg/dL (9-20); Calcium 8.5 mg/dL (8.4-10.2); Carbon Dioxide 25 mmol/L (22-30); Chloride 107 mmol/L (98-107); Glucose 107 mg/dL (74-99); Lipase 40 U/L (23-300); Magnesium 1.9 mg/dL (1.6-2.3); Non-African American GFR(CKD) >90 (>60 ml/min/1.73 sqM); Potassium 3.6 mmol/L (3.5-5.1); Sodium 137 mmol/L (137-145); Total Bilirubin 0.3 mg/dL (0.2-1.3); Total Protein 6.5 g/dL (6.3-8.2)
[2020-08-19 00:28] LABS: Basophils % (A) 1 %; Eosinophils # (A) 0.2 k/uL (0-0.7); Eosinophils % (A) 4 %; HCT 43.6 % (39.0-53.0); HGB 14.4 gm/dL (13.0-17.5); Lymphocytes # (A) 1.4 k/uL (1.0-4.8); Lymphocytes % (A) 27 %; MCH 31.7 pg (25.0-35.0); MCHC 33.1 g/dL (31.0-37.0); MCV 95.7 fL (80.0-100.0); Mean Platelet Volume 7.4; Monocytes # (A) 0.3 k/uL (0-1.0); Monocytes % (A) 6 %; Neutrophils # (A) 3.3 k/uL (1.3-7.7); Neutrophils % (A) 62 %; Platelet Count 111 k/uL (150-450); RBC 4.55 m/uL (4.30-5.90); RDW 13.3 % (11.5-15.5); WBC 5.3 k/uL (3.8-10.6)
--- NOTE | 2020-08-19 00:30 | XR ---
EXAM: XR Chest, 2 Views CLINICAL HISTORY: ITS.REASON XR Reason: Chest Pain TECHNIQUE: Frontal and lateral views of the chest. COMPARISON: 11/24/2019. FINDINGS: Lungs: The lungs are well aerated. Pleural space: Unremarkable. No pneumothorax. Heart: Cardiomediastinal silhouette unremarkable. Mediastinum: See above. Bones/joints: Osteopenia. Moderate degenerative disc disease of the thoracic spine and levoscoliosis. Ribs are unremarkable. IMPRESSION: No active disease.
[2020-08-19 00:41] LABS: Prothrombin Time 10.5 sec (9.0-12.0)
[2020-08-19 00:43] LABS: Partial Thromboplastin Time 21.5 sec (22.0-30.0)
[2020-08-19 01:21] VITALS: BP 124/77; PULSE 64; RESP 20
== END 2020-08-19 02:10 | disposition home or self-care (01) ==
LOC: EC 23:49
DX: R07.89 Other chest pain (principal); R06.09 Other forms of dyspnea; I25.119 Atherosclerotic heart disease of native coronary artery with unspecified angina pectoris; I10 Essential (primary) hypertension; I25.2 Old myocardial infarction; Z79.82 Long term (current) use of aspirin; Z79.899 Other long term (current) drug therapy; Z88.6 Allergy status to analgesic agent; Z88.8 Allergy status to other drugs, medicaments and biological substances; Z95.5 Presence of coronary angioplasty implant and graft
CPT/HCPCS: 36415; 93005; 85379; 80053; 82150; 83690; 83735; 84484; 85025; 85610; 85730; 71046; 99285; 96374; 96376; J2270

== ENCOUNTER 2021-07-28 14:40 | Emergency (ER) | payer MEDICARE ==
[2021-07-28 14:55] VITALS: BP 130/80; PULSE 62; RESP 18; TEMP 97.7
--- NOTE | 2021-07-28 16:06 | XR ---
Limited left hand HISTORY: Second digit swelling 2 views left hand No comparisons Soft tissue swelling is noted at the second digit. There is no evident fracture or dislocation. Bone mineralization and alignment are maintained, remote trauma change is noted to the distal fifth metaca rpal. There is a flexion deformity noted of the second digit. IMPRESSION: Correlate to exclude tendon injury. Remote trauma with digit.
--- NOTE | 2021-07-28 16:08 | ED ---
Upper Extremity HPI - General Chief Complaint: Extremity Injury, Upper Stated Complaint: L hand injury Time Seen by Provider: 07/28/21 15:12 Source: patient, RN notes reviewed Mode of arrival: ambulatory Limitations: no limitations - History of Present Illness Initial Comments: This a 65-year-old male presents emergency from chief complaint of left finger injury. Patient states that because some swelling to his finger not unable to remove his ring. Patient states his ring cut off is mild discomfort to the PIP joint of his left index finger. No lacerations no other complaints. - Related Data Home Medications Medication Instructions Recorded Confirmed Aspirin 325 mg PO DAILY 08/26/19 08/26/19 Nitroglycerin Sl Tabs [Nitrostat] 0.4 mg SUBLINGUAL Q5M PRN 08/26/19 08/26/19 Allergies Allergy/AdvReac Type Severity Reaction Status Date / Time haloperidol [From Haldol] Allergy Confusion Verified 07/28/21 14:55 ketorolac [From Toradol] Allergy Diarrhea Verified 07/28/21 14:55 naproxen [From Naprosyn] Allergy Anaphylaxis Verified 07/28/21 14:55 olanzapine [From Zyprexa] Allergy Confusion Verified 07/28/21 14:55 sertraline [From Zoloft] AdvReac Unknown Verified 07/28/21 14:55 tramadol AdvReac Nausea & Verified 07/28/21 14:55 Vomiting & Diarrhea Review of Systems ROS Statement: Those systems with pertinent positive or pertinent negative responses have been documented in the HPI. ROS Other: All systems not noted in ROS Statement are negative. Past Medical History Past Medical History: Coronary Artery Disease (CAD), Chest Pain / Angina, COPD, GERD/Reflux, GI Bleed, Hyperlipidemia, Hypertension, Liver Disease, Myocardial Infarction ([place]), Osteoarthritis (OA), Pneumonia, Rheumatoid Arthritis (RA) Additional Past Medical History / Comment(s): CHI, SUBARACHNOID HEMORRHAGE-eyes are light sensitive at times, [place]'s x 7 per pt, chronic pain, lumbar radiculopathy, DDD, scoliosis, spinal stenosis, gastric/douodenal ulcers, lower GI bleed, hepatitis C with unsuccessful treatment, malaria, IBS, bilateral hand/fingers fractures, R index finger tip missing, hypoglycemia. Last Myocardial Infarction Date:: 2011? History of Any Multi-Drug Resistant Organisms: None Reported Past Surgical History: Back Surgery, Cholecystectomy, Heart Catheterization With Stent Additional Past Surgical History / Comment(s): PCI with stents (pt thinks he has 5 stents), PTCA in 2016, multiple back surgeries, EGD/colonoscopy. Past Anesthesia/Blood Transfusion Reactions: No Reported Reaction Additional Past Anesthesia/Blood Transfusion Reaction / Comment(s): (previously charted)11/17/14 Pt denies blood transfusion. Date of Last Stent Placement:: 2011? Past Psychological History: Anxiety, Depression Smoking Status: Current every day smoker Past Alcohol Use History: None Reported Past Drug Use History: Marijuana - Past Family History Mother Family Medical History: Hypertension Father Family Medical History: Coronary Artery Disease (CAD) General Exam Limitations: no limitations, physical limitation General appearance: alert, in no apparent distress Head exam: Present: atraumatic, normocephalic, normal inspection Respiratory exam: Present: normal lung sounds bilaterally. Absent: respiratory distress, wheezes, rales, rhonchi, stridor Cardiovascular Exam: Present: regular rate, normal rhythm, normal heart sounds. Absent: systolic murmur, diastolic murmur, rubs, gallop, clicks Extremities exam: Present: other (Left hand index finger there is moderate swelling at the PIP joint no lacerations unable to move finger Refill less than 2 seconds.) Neurological exam: Present: alert Skin exam: Present: warm, dry, intact, normal color. Absent: rash Course Vital Signs 07/28/21 14:50 Temperature 97.7 F Pulse Rate 62 Respiratory 18 Rate Blood Pressure 130/80 O2 Sat by Pulse 99 Oximetry Procedures - Procedures Initial comment: Left hand index finger ring was cut using a ring cutter, removed with no complications. Medical Decision Making - Medical Decision Making Patient's x-rays unremarkable. Ring was removed without complications patient will be discharged in stable condition. Disposition Clinical Impression: Ring or other jewelry causing external constriction, initial encounter, Sprain of left index finger Disposition: HOME SELF-CARE Condition: Stable Instructions (If sedation given, give patient instructions): Finger Sprain (ED) Additional Instructions: Please return to the Emergency Department if symptoms worsen or any other concerns. Is patient prescribed a controlled substance at d/c from ED?: No Referrals: None,Stated [Primary Care Provider] - 1-2 days Time of Disposition: 16:08
== END 2021-07-28 16:17 | disposition home or self-care (01) ==
LOC: EC 14:40
DX: S63.611A Unspecified sprain of left index finger, initial encounter (principal); I10 Essential (primary) hypertension; I25.2 Old myocardial infarction; I25.10 Atherosclerotic heart disease of native coronary artery without angina pectoris; J44.9 Chronic obstructive pulmonary disease, unspecified; K21.9 Gastro-esophageal reflux disease without esophagitis; E78.5 Hyperlipidemia, unspecified; M06.9 Rheumatoid arthritis, unspecified; F32.A Depression, unspecified; F41.9 Anxiety disorder, unspecified; F17.200 Nicotine dependence, unspecified, uncomplicated; F12.90 Cannabis use, unspecified, uncomplicated; W49.04XA Ring or other jewelry causing external constriction, initial encounter; Z79.82 Long term (current) use of aspirin; Z79.1 Long term (current) use of non-steroidal anti-inflammatories (NSAID); Z79.899 Other long term (current) drug therapy
CPT/HCPCS: 99283